=== PATIENT | male | born 1990 | race Caucasian/White ===

== ENCOUNTER 2023-08-05 13:24 | Inpatient (IN) | payer MEDICAID, SELFPAY ==
[2023-08-05] VITALS (10 sets, daily range): BP systolic 100–156; BP diastolic 56–90; PULSE 68–89; RESP 12–19; TEMP 36.5–36.8; O2SAT 95–99; BMI 26.9; BMI 26.3
[2023-08-05 13:40] LABS: MANUAL DIFF FLAG NO
--- NOTE | 2023-08-05 13:41 | PC.NURSE ---
jeremi from [facility] s/p lab draw at 0700 this morning w/ critical lab value - sodium of 116. pt is asymptomatic. has no acute complaints. denies cramps/feeling nauseous. pt changed over into hospital attire. a&ox4. vss and up to date. nsr on the quality assurance monitor. 20gIV placed in the left forearm - labs obtained/sent to lab. no sob/wob noted. respirations even/unlabored. plan of care ongoing. call parkinson placed within reach.
--- NOTE | 2023-08-05 13:48 | ED.RECABL ---
HPI - Recheck/Abnormal Lab/Rx General Chief Complaint: Recheck/Abnormal Lab/Rx Stated Complaint: high sodium Time Seen by Provider: 08/05/23 13:30 Source: patient and old records reviewed Mode of arrival: ambulatory Limitations: other (poor historian) History of Present Illness ED Provider: JUSTUS OCONNELL narrative: 32 yo male with PMH of substance abuse, hyponatremia, TBI, psychosis, hypothyroidism, on fluid restriction 1500mL / day, chronic leg edema on 20mg lasix daily but also on sodium chloride tablets 1Gm TID here with c/o routine labs at [facility] found to have Na 116 - he denies any complaints denies GI losses. He is drinking about 120 ounces of water a day despite fluid restriction. MD complaint: abnormal lab Initial visit (ago): day(s) (1) Initial visit for: other Returns today for: called because of abnormal lab/test Description of abnormal result: Na 116 Symptoms since prior visit: no new symptoms Associated symptoms: none Related Data Home Medications ?Medication ?Instructions ?Recorded ?Confirmed acetaminophen 650 mg 650 mg PO Q6H PRN Elevated Temp 08/05/23 08/05/23 tablet,extended release benztropine 0.5 mg tablet 0.5 mg PO DAILY 08/05/23 08/05/23 bisoprolol fumarate 5 mg tablet 5 mg PO BID 08/05/23 08/05/23 buprenorphine 2 mg-naloxone 0.5 mg 1 film sublingual BID 08/05/23 08/05/23 sublingual film (Suboxone) chlorpromazine 100 mg tablet 100 mg PO DAILY@0808/05/23 08/05/23 chlorpromazine 200 mg tablet 200 mg PO DAILY@1400 08/05/23 08/05/23 chlorpromazine 200 mg tablet 200 mg PO DAILY@199908/05/23 08/05/23 chlorpromazine 25 mg tablet 25 mg PO DAILY@0808/05/23 08/05/23 chlorpromazine 50 mg tablet 50 mg PO DAILY@0808/05/23 08/05/23 clonazepam 0.5 mg tablet 0.5 mg PO BID 08/05/23 08/05/23 divalproex 250 mg tablet,extended 250 mg PO DAILY 08/05/23 08/05/23 release 24 hr (Depakote ER) divalproex 250 mg tablet,extended 500 mg PO BEDTIME 08/05/23 08/05/23 release 24 hr (Depakote ER) docusate sodium 100 mg capsule 100 mg PO BID 08/05/23 08/05/23 (Colace) famotidine 20 mg tablet 20 mg PO BID 08/05/23 08/05/23 folic acid 1 mg tablet 1 mg PO DAILY 08/05/23 08/05/23 furosemide 20 mg tablet 20 mg PO DAILY 08/05/23 08/05/23 levothyroxine 50 mcg tablet 50 mcg PO DAILY 08/05/23 08/05/23 (Synthroid) lorazepam 2 mg/mL oral concentrate 1 mg PO Q5M PRN Seizures 08/05/23 08/05/23 (Lorazepam Intensol) multivitamin 1 tab PO DAILY 08/05/23 08/05/23 naloxone 0.4 mg/mL injection 0.4 mg subcut Q3M PRN Suspected OD 08/05/23 08/05/23 solution sennosides 8.6 mg tablet (senna) 8.6 mg PO DAILY PRN Constipation 08/05/23 08/05/23 sodium chloride 1,000 mg soluble 3,000 mg PO DAILY 08/05/23 08/05/23 tablet sodium phosphates 19 gram-7 118 ml [place] DAILY PRN If Bisacodyl 08/05/23 08/05/23 gram/118 mL enema not effective thiamine HCl (vitamin B1) 100 mg 100 mg PO DAILY 08/05/23 08/05/23 tablet Allergies Allergy/AdvReac Type Severity Reaction Status Date / Time No Known Allergies Allergy Verified 08/05/23 13:30 [No Known Allergies*] Review of Systems Review of Systems: Constitutional : No Fever, No Chills, No Fatigue ENT/Mouth : No sore throat, No Rhinorrhea Eyes: No Eye Pain, No Swelling, No Redness Cardiovascular : No Chest Pain, No SOB, No Dyspnea on Exertion Respiratory : No Cough, No Sputum Gastrointestinal : No Nausea, No Vomiting, No Diarrhea, No abdominal Pain Genitourinary : No Dysuria, No Urinary Frequency, No Hematuria, Musculoskeletal : No joint pain, No Myalgias, No Joint Swelling Skin : No Skin Lesions, No rash Neuro : No Weakness, No Numbness, No Dizziness, no Headache Psych : No Anxiety/Panic, No Depression All other systems reviewed and are negative [facility] Past Medical History Attestation statement: The following information was validated with the patient. Source: old records reviewed Medical History (Updated 08/05/23 @ 15:39 by Kaitlin Malave) Hypothyroidism Hyponatremia Opiate use Psychosis Impulse disorder TBI (traumatic brain injury) Social History Social History (Updated 08/05/23 @ 14:31 by Kathie Lyman DO) Patient Tobacco Use Status: Tobacco use Unknown Physical Exam Vital Signs: Vital Signs: Last Vital Signs Temp 97.7 F 08/05/23 15:11 Pulse 71 08/05/23 15:11 Resp 14 08/05/23 15:11 BP 127/82 08/05/23 15:11 Pulse Ox 98 08/05/23 15:11 O2 Del Method Room Air 08/05/23 15:11 BMI result Body Mass Index 26.9 Appearance: Alert. Oriented X3. No acute distress. Eyes: Pupils equal, round and reactive to light. ENT: Pharynx normal. Neck: Normal inspection. Neck supple. CVS: Normal heart rate and rhythm. Pulses normal. Respiratory: No respiratory distress. Breath sounds normal. Abdomen: Soft and nontender. Skin: Skin warm and dry. Normal skin color. Normal skin turgor. Extremities: trace pitting edema of both ankles Neuro: Oriented X 3. No motor deficit. No sensory deficit. Medications Administered Discontinued Medications Generic Name Dose Route Start Last Admin Trade Name Freq PRN Reason Stop Dose Admin Sodium Chloride 4 gm 08/05/23 14:27 08/05/23 15:25 Sodium Chloride Tab 1 Gm Tablet PO 08/05/23 14:28 4 gm ONCE ONE Administration Medical Decision Making Medical Decision Making [facility] Narrative: 32 yo male with PMH of substance abuse, hyponatremia, TBI, psychosis, hypothyroidism, on fluid restriction 1500mL / day, chronic leg edema on 20mg lasix daily who has been consuming 120 ounces of water a day presents with c/o Na 116 this AM now 113 at this time urine, lytes, ICU consult ordered. Planned admit. He is at his baseline no seizures reported. Differential Diagnosis Differential Diagnoses: The differential diagnosis associated with the presentation includes SIADH, psychogenic polydipsia, sequela of hyponatremia Admission/Observation Consideration of admission/observation: Escalation of care including admission/observation considered admit to ICU Consult Healthcare Provider Management of the patient was discussed with: Mems Integration Engineer (Dr. Escalona will accept admission - 4 tabs of sodium, regular diet, hold off hypertonic infusion at this time) Dr. Collazo recommended hypertonic saline but Dr. escalona who is assuming care provided different recommendations to follow Lab Data MDM Lab Attestation statement: I reviewed the patient's lab results. 08/05/23 13:36 08/05/23 13:36 Labs: Lab Results 08/05/23 08/05/23 08/05/23 Range/Units 13:36 13:55 13:56 WBC 4.0 L (4.8-10.8) X10*3/uL RBC 3.85 L (4.60-5.80) X10*6/uL Hgb 11.0 L (14.0-18.0) g/dl Hct 29.5 L (42.0-52.0) % MCV 76.6 L (80.0-98.0) fL MCH 28.6 (27.0-33.0) pg MCHC 37.3 H (31.0-36.0) g/dl RDW 12.0 (11.0-16.0) % Plt Count 220 (160-400) X10*3/uL MPV 9.1 L (9.4-12.4) fL Immature Gran % (Auto) 1.3 H (0.0-0.4) % Neut % (Auto) 45.4 (45-73) % Lymph % (Auto) 36.0 (20-40) % [place] % (Auto) 13.3 H (2-11) % Eos % (Auto) 4.0 (0-4) % Baso % (Auto) 0.0 (0-2) % Lymph # (Auto) 0.3 L (1.2-4.9) X10*3/uL [place] # (Auto) 0.1 (0.1-1.2) X10*3/uL Eos # (Auto) 0.0 (0.0-0.4) X10*3/uL Baso # (Auto) 0.0 (0.0-0.2) X10*3/uL Abs Immat Gran (auto) 0.01 (0.00-0.03) X10*3/uL Absolute Neuts (auto) 0.3 L (2.0-8.3) x10*3/uL Absolute Nucleated RBC 0.000 (0.0-0.012) X10*3/uL Nucleated RBC % (auto) 0.0 (0.0-0.2) /100WBC Sodium 113 L* (135-145) mmol/L Potassium 4.2 (3.3-5.1) mmol/L Chloride 85 L (96-108) mmol/L Carbon Dioxide 20 L (22-29) mmol/L Anion Gap 12 (12-20) BUN 6 L (9-16) mg/dL Creatinine 0.57 (0.5-1.4) mg/dL Estim Creat Clear Calc 188.5 Estimated GFR > 60 Random Glucose 124 H (60-115) mg/dL Osmolality 234 L (281-305) mosm/kg Calcium 8.2 L (8.4-10.2) mg/dL Magnesium 1.7 (1.6-2.6) mg/dL Total Bilirubin 0.3 (0.0-1.0) mg/dL AST 14 (5-37) U/L ALT 10 (0-40) U/L Alkaline Phosphatase 81 (39-117) U/L Total Protein 6.3 L (6.5-8.0) g/dL Albumin 3.9 (3.5-5.0) g/dL TSH 1.73 (0.32-4.0) uIU/mL Urine Color Yellow Urine Appearance Clear Urine pH 6.5 (5.0-9.0) Ur Specific [place] 1.010 (1.005-1.025) Urine Protein Negative (Neg-Trace) mg/dL Urine Glucose (UA) Negative (Negative) mg/dL Urine Ketones Negative (Negative) mg/dL Urine Blood Negative (Negative) Urine Nitrite Negative (Negative) Ur Leukocyte Esterase Negative (Negative) Ur Random Sodium 21.0 mmol/L Urine Creatinine 48.40 mg/dL Valproic Acid 18.8 L (50.0-100.0) mcg/mL Independent Historian Clinical information obtained from an independent historian. History obtained from or confirmed by: EMS External Record Review External record reviewed: Outpatient record and Prior outpatient labs Critical Care Time Critical Care Time Critical Care Time: Yes Total Critical Care Time: 40 Attestation: consult, review of records, admission to ICU I attest to this time spent taking care of the patient Discharge Plan Discharge Clinical Impression: Hyponatremia Patient Disposition: Admitted As Inpatient Interventions: Admission Worksheet (ED) Last Done: 08/05/23 15:37 Discharge Date/Time: 08/05/23 15:39
[2023-08-05 13:59] LABS: Alanine Aminotransferase 10 U/L (0-40); Albumin Level 3.9 g/dL (3.5-5.0); Alkaline Phosphatase 81 U/L (39-117); Anion Gap 12 (12-20); Aspartate Amino Transferase 14 U/L (5-37); Bilirubin Total 0.3 mg/dL (0.0-1.0); Blood Urea Nitrogen 6 mg/dL (9-16); Calcium 8.2 mg/dL (8.4-10.2); Carbon Dioxide 20 mmol/L (22-29); Chloride 85 mmol/L (96-108); Creatinine Clr Calc Pharmacy 188.5; Estimated Glomerular Filt Rate > 60; Glucose Random 124 mg/dL (60-115); Magnesium 1.7 mg/dL (1.6-2.6); Potassium 4.2 mmol/L (3.3-5.1); Sodium 113 mmol/L (135-145); Total Protein 6.3 g/dL (6.5-8.0)
[2023-08-05 14:03] LABS: Appearance Urine Clear; Color Urine Yellow; Glucose Urine UA Negative (Negative); Leukocyte Esterase Urine Negative (Negative); Nitrite Urine Negative (Negative); PH 6.5 (5.0-9.0); Urine Blood Negative (Negative); Urine Ketones Negative (Negative); Urine Protein Negative (Neg-Trace)
[2023-08-05 14:13] LABS: Valproate 18.8 mcg/mL (50.0-100.0)
[2023-08-05 14:27] LABS: Osmolality, Serum 234 mosm/kg (281-305)
--- NOTE | 2023-08-05 14:33 | P.HPCC_ITS ---
History of Present Illness Date of Service: 08/05/23 Chief Complaint: Subacute hyponatremia 32-year-old gentleman with underlying history of substance abuse, hyponatremia supposed to be on sodium tabs, TBI, psychosis, hypothyroidism, on daily fluid restriction of 1.5 L, chronic leg edema on 20 mg a day of Lasix sent from [facility] for hyponatremia. On ER initial sodium level of 113. Patient with no neurologic symptoms, admitting to drinking paroxysmally 100-120 oz of fluids daily over the last 5 days. Review of Systems 2 Constitutional: Constitutional: Denies daytime sleepiness, Denies excessive sweating, Denies fatigue, Denies fever(s), Denies lethargy, Denies malaise, Denies night sweats, Denies snoring and Denies weight loss Eyes: Eyes: Denies blurry vision and Denies itchy eyes ENT: Denies nasal congestion, Denies post nasal drip, Denies sinus pain, Denies sinus pressure and Denies other ( Thrush) Cardiovascular: Cardiovascular: Denies chest pain, Denies pedal edema, Denies dyspnea, Denies orthopnea and Denies paroxysmal nocturnal dyspnea Respiratory: Respiratory: Denies cough, Denies hemoptysis, Denies excessive phlegm production, Denies dyspnea, Denies snoring and Denies wheezing Gastrointestinal: Gastrointestinal: Denies abdominal pain and Denies heartburn Musculoskeletal: Musculoskeletal: Denies myalgias, Denies arthralgias and Denies joint swelling Integumentary/Breasts: Skin/Breast: Denies rash Neurologic: Denies memory loss and Denies seizure-like activity Psychiatric: Psychiatric: Denies abnormal sleep pattern, Denies anxiety and Denies memory loss Endocrine: Endocrine: Denies excessive sweating, Denies fatigue and Denies heat intolerance Hematologic/Lymphatic: Hematologic/Lymphatic: Denies easy bruising Allergic/Immunologic: Allergic/Immunologic: Denies itchy eyes, Denies seasonal rhinorrhea and Denies wheezing PMFSH Past Medical History Medical History (Updated 08/05/23 @ 14:35 by Stan Escalona MD) Hypothyroidism Hyponatremia Opiate use Psychosis Impulse disorder TBI (traumatic brain injury) Social History Social History (Updated 08/05/23 @ 14:31 by Kathie Lyman DO) Patient Tobacco Use Status: Tobacco use Unknown Advance Directives: No Advance Directives Information Provided: Yes Do you have a plan to hurt others: No Plan Meds Allergies Allergy/AdvReac Type Severity Reaction Status Date / Time No Known Allergies Allergy Verified 08/05/23 13:30 [No Known Allergies*] Active Medications: Current Medications Heparin Sodium (Porcine) (Heparin Sodium,Porcine 5,000 Unit/Ml Vial) 5,000 unit SUBCUT Q8H [facility] Sodium Chloride (Sodium Chloride Tab 1 Gm Tablet) 2 gm PO TID [facility] Physical Exam 2 Vital Signs: Vital Signs: Last Vital Signs Temp 98.2 F 08/05/23 13:29 Pulse 75 08/05/23 13:29 Resp 16 08/05/23 13:29 BP 116/75 08/05/23 13:29 Pulse Ox 97 08/05/23 13:29 O2 Del Method Room Air 08/05/23 13:29 BMI result Body Mass Index 26.9 Const: General: no acute distress and alert Nutritional Appearance: not obese Orientation/consciousness: Other orientation findings ( oriented) HEENT: Head: Yes atraumatic Eyes: General: appearance normal, both eyes and all related structures S clerae: sclerae normal EOM: EOMs intact bilaterally Neck: Neck: Yes supple Lymphatic: no lymphadenopathy noted Resp: Effort & Inspection: normal respiratory effort and no use of accessory muscles Auscultation: clear to auscultation bilaterally Cardio: Rate: regular rate Rhythm: regular rhythm Heart sounds: no gallops, no murmurs and no rubs Skin: General skin exam: other ( warm) Extrem: General: No clubbing, No cyanosis and No edema Results Labs 08/05/23 13:36 08/05/23 13:36 Labs: Laboratory Results - last 24 hr 08/05/23 08/05/23 08/05/23 13:36 13:55 13:56 Anion Gap 12 Estim Creat Clear Calc 188.5 Estimated GFR > 60 Random Glucose 124 H Osmolality 234 L Calcium 8.2 L Magnesium 1.7 Total Bilirubin 0.3 AST 14 ALT 10 Alkaline Phosphatase 81 Total Protein 6.3 L Albumin 3.9 Urine Color Yellow Urine Appearance Clear Urine pH 6.5 Ur Specific [place] 1.010 Urine Protein Negative Urine Glucose (UA) Negative Urine Ketones Negative Urine Blood Negative Urine Nitrite Negative Ur Leukocyte Esterase Negative Ur Random Sodium 21.0 Urine Creatinine 48.40 Valproic Acid 18.8 L Assessment and Plan (1) Psychosis: Status: Acute (2) TBI (traumatic brain injury): Status: Acute (3) Hypothyroidism: Status: Acute (4) Hyponatremia: Status: Acute Plan Assessment: 32-year-old gentleman with underlying TBI, psychosis, hypothyroidism, substance abuse, chronic hyponatremia now admitted with subacute on chronic hyponatremia with initial sodium level of 113. Plan: Neuro: No acute issues. Cardiac: No acute issues. Pulmonary: No acute issues. 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 Restart on sodium tabs. Nephrology service care appreciated. Monitor sodium level, urine output, and renal indices. Endo: No acute issues. Underlying hypothyroidism. GI: No acute issues. ID: No acute issues Heme/Onc: No acute issues. Psych: No acute issues. Underlying history of TB/psychosis. Miscellaneous: No acute issues. Prophylaxis: Heparin Diet: Regular
--- NOTE | 2023-08-05 14:38 | PC.NURSE ---
pharmacy called d/t medication not being available in pyxis. will administer when able.
[2023-08-05 14:55] LABS: Imm Gran Abs Auto 0.01 X10*3/uL (0.00-0.03); Imm Gran Pct Auto 1.3 % (0.0-0.4); Lymphocytes Absolute Auto 0.3 X10*3/uL (1.2-4.9); Mean Corpuscular HGB Conc 37.3 g/dl (31.0-36.0); Mean Corpuscular Hemoglobin 28.6 pg (27.0-33.0); Mean Corpuscular Volume 76.6 fL (80.0-98.0); Mean Platelet Volume 9.1 fL (9.4-12.4); Monocytes Absolute Auto 0.1 X10*3/uL (0.1-1.2); Monocytes Percent Auto 13.3 % (2-11); Neutrophils Absolute Auto 0.3 x10*3/uL (2.0-8.3); Neutrophils Percent Auto 45.4 % (45-73); SCAN SMEAR FLAG 1
[2023-08-05 14:56] LABS: Hematocrit 29.5 % (42.0-52.0); Platelet Count 220 X10*3/uL (160-400); Red Blood Count 3.85 X10*6/uL (4.60-5.80); TSH reflex Free T4 1.73 uIU/mL (0.32-4.0)
[2023-08-05] MEDS: Sodium Chloride Tab 1 GM TABLET 4 GM PO (15:25)
--- NOTE | 2023-08-05 15:27 | PC.NURSE ---
medication delivered from pharmacy/administered at this time. pt's vs remain stable. nsr on the hospital monitor. pt has no complaints. report given to MARY KAY De León in the ICU at this time. plan of care ongoing. call parkinson placed within reach.
--- NOTE | 2023-08-05 15:30 | PHA.MEDREC ---
Pharmacy Consult ? Medication Reconciliation Pharmacy has completed the medication reconciliation. Confirmed medications with list provided from [facility].
--- NOTE | 2023-08-05 15:35 | PC.NURSE ---
pt being transported to ICU w/ Juan MUÑIZ, as well as MARY KAY Thapa at this time.
[2023-08-05] MEDS: Heparin Sodium,Porcine 5,000 UNIT/ML VIAL 5000 UNIT SUBCUT ×2 (15:43→23:05)
[2023-08-05 18:51] LABS: Anion Gap 10 (12-20); Blood Urea Nitrogen 7 mg/dL (9-16); Calcium 8.6 mg/dL (8.4-10.2); Carbon Dioxide 24 mmol/L (22-29); Chloride 88 mmol/L (96-108); Creatinine Clr Calc Pharmacy 179.1; Estimated Glomerular Filt Rate > 60; Glucose Random 136 mg/dL (60-115); Potassium 4.2 mmol/L (3.3-5.1); Sodium 118 mmol/L (135-145)
[2023-08-05] MEDS: Sodium Chloride Tab 1 GM TABLET 2 GM PO (19:42)
[2023-08-06] VITALS (13 sets, daily range): BP systolic 96–133; BP diastolic 47–89; PULSE 69–89; RESP 12–20; TEMP 36.1–37.2; O2SAT 95–98; BMI 26.3
[2023-08-06 05:05] LABS: MANUAL DIFF FLAG NO
[2023-08-06 05:07] LABS: Basophils Percent Auto 0.3 % (0-2); Eosinophils Absolute Auto 0.1 X10*3/uL (0.0-0.4); Eosinophils Percent Auto 3.2 % (0-4); Hematocrit 33.2 % (42.0-52.0); Hemoglobin 12.4 g/dl (14.0-18.0); Imm Gran Abs Auto 0.01 X10*3/uL (0.00-0.03); Imm Gran Pct Auto 0.3 % (0.0-0.4); Lymphocytes Absolute Auto 1.4 X10*3/uL (1.2-4.9); Mean Corpuscular HGB Conc 37.3 g/dl (31.0-36.0); Mean Corpuscular Hemoglobin 29.1 pg (27.0-33.0); Mean Corpuscular Volume 77.9 fL (80.0-98.0); Mean Platelet Volume 8.6 fL (9.4-12.4); Monocytes Absolute Auto 0.5 X10*3/uL (0.1-1.2); Monocytes Percent Auto 15.1 % (2-11); Neutrophils Absolute Auto 1.1 x10*3/uL (2.0-8.3); Neutrophils Percent Auto 36.1 % (45-73); Platelet Count 212 X10*3/uL (160-400); Red Blood Count 4.26 X10*6/uL (4.60-5.80); White Blood Count 3.1 X10*3/uL (4.8-10.8)
[2023-08-06 05:24] LABS: Alanine Aminotransferase 11 U/L (0-40); Albumin Level 3.8 g/dL (3.5-5.0); Alkaline Phosphatase 78 U/L (39-117); Anion Gap 12 (12-20); Aspartate Amino Transferase 11 U/L (5-37); Bilirubin Total 0.2 mg/dL (0.0-1.0); Blood Urea Nitrogen 6 mg/dL (9-16); Calcium 9.1 mg/dL (8.4-10.2); Carbon Dioxide 23 mmol/L (22-29); Chloride 90 mmol/L (96-108); Creatinine Clr Calc Pharmacy 185.2; Estimated Glomerular Filt Rate > 60; Glucose Random 96 mg/dL (60-115); Magnesium 1.9 mg/dL (1.6-2.6); Phosphorus 4.9 mg/dL (2.7-4.5); Potassium 4.4 mmol/L (3.3-5.1); Sodium 121 mmol/L (135-145)
[2023-08-06] MEDS: Heparin Sodium,Porcine 5,000 UNIT/ML VIAL 5000 UNIT SUBCUT ×2 (08:55→14:02)
[2023-08-06] MEDS: Sodium Chloride Tab 1 GM TABLET 2 GM PO ×2 (08:56→14:01)
--- NOTE | 2023-08-06 09:20 | PM.CCPN ---
Subjective Subjective Date of Service: 08/06/23 Interval History: 32-year-old gentleman with underlying history of substance abuse, hyponatremia supposed to be on sodium tabs, TBI, psychosis, hypothyroidism, on daily fluid restriction of 1.5 L, chronic leg edema on 20 mg a day of Lasix sent from [facility] for hyponatremia. On ER initial sodium level of 113. Patient with no neurologic symptoms, admitting to drinking paroxysmally 100-120 oz of fluids daily over the last 5 days. Overnight. Sodium level is improving. Critical Care Time (minutes): 0 Physical Exam Vital Signs: Vital Signs: Last Vital Signs Temp 98.2 F 08/06/23 08:00 Pulse 87 08/06/23 08:00 Resp 15 08/06/23 08:00 BP 117/68 08/06/23 08:00 Pulse Ox 95 08/06/23 08:00 O2 Del Method Room Air 08/06/23 08:00 BMI result Body Mass Index 26.3 Const: General: no acute distress, alert and awake Eyes: Sclerae: sclerae normal EOM: EOMs intact bilaterally Neck: Neck: Yes no lymphadenopathy, Yes trachea midline and Yes supple Resp: Effort & Inspection: normal respiratory effort and no respiratory distress Auscultation: clear to auscultation bilaterally Cardio: Rate: regular rate Rhythm: regular rhythm Heart sounds: no gallops, no murmurs and no rubs GI: Palpation (GI): Soft to palpation and Other GI palpation findings present ( Nontender) Auscultation: normal bowel sounds Extrem: General: Yes no pedal edema, No clubbing and No cyanosis Objective Data Labs 08/06/23 04:53 08/06/23 04:53 Labs: Laboratory Results - last 24 hr 08/05/23 08/05/23 08/05/23 13:36 13:55 13:56 WBC 4.0 L RBC 3.85 L Hgb 11.0 L Hct 29.5 L MCV 76.6 L MCH 28.6 MCHC 37.3 H RDW 12.0 Plt Count 220 MPV 9.1 L Immature Gran % (Auto) 1.3 H Neut % (Auto) 45.4 Lymph % (Auto) 36.0 [place] % (Auto) 13.3 H Eos % (Auto) 4.0 Baso % (Auto) 0.0 Lymph # (Auto) 0.3 L [place] # (Auto) 0.1 Eos # (Auto) 0.0 Baso # (Auto) 0.0 Abs Immat Gran (auto) 0.01 Absolute Neuts (auto) 0.3 L Absolute Nucleated RBC 0.000 Nucleated RBC % (auto) 0.0 Sodium 113 L* Potassium 4.2 Chloride 85 L Carbon Dioxide 20 L Anion Gap 12 BUN 6 L Creatinine 0.57 Estim Creat Clear Calc 188.5 Estimated GFR > 60 Random Glucose 124 H Osmolality 234 L Calcium 8.2 L Phosphorus Magnesium 1.7 Total Bilirubin 0.3 AST 14 ALT 10 Alkaline Phosphatase 81 Total Protein 6.3 L Albumin 3.9 TSH 1.73 Urine Color Yellow Urine Appearance Clear Urine pH 6.5 Ur Specific [place] 1.010 Urine Protein Negative Urine Glucose (UA) Negative Urine Ketones Negative Urine Blood Negative Urine Nitrite Negative Ur Leukocyte Esterase Negative Ur Random Sodium 21.0 Urine Creatinine 48.40 Valproic Acid 18.8 L 08/05/23 08/06/23 18:04 04:53 WBC 3.1 L RBC 4.26 L Hgb 12.4 L Hct 33.2 L MCV 77.9 L MCH 29.1 MCHC 37.3 H RDW 12.0 Plt Count 212 MPV 8.6 L Immature Gran % (Auto) 0.3 Neut % (Auto) 36.1 L Lymph % (Auto) 45.0 H [place] % (Auto) 15.1 H Eos % (Auto) 3.2 Baso % (Auto) 0.3 Lymph # (Auto) 1.4 [place] # (Auto) 0.5 Eos # (Auto) 0.1 Baso # (Auto) 0.0 Abs Immat Gran (auto) 0.01 Absolute Neuts (auto) 1.1 L Absolute Nucleated RBC 0.000 Nucleated RBC % (auto) 0.0 Sodium 118 L* 121 L Potassium 4.2 4.4 Chloride 88 L 90 L Carbon Dioxide 24 23 Anion Gap 10 L 12 BUN 7 L 6 L Creatinine 0.60 0.58 Estim Creat Clear Calc 179.1 185.2 Estimated GFR > 60 > 60 Random Glucose 136 H 96 Osmolality Calcium 8.6 9.1 Phosphorus 4.9 H Magnesium 1.9 Total Bilirubin 0.2 AST 11 ALT 11 Alkaline Phosphatase 78 Total Protein 6.0 L Albumin 3.8 TSH Urine Color Urine Appearance Urine pH Ur Specific [place] Urine Protein Urine Glucose (UA) Urine Ketones Urine Blood Urine Nitrite Ur Leukocyte Esterase Ur Random Sodium Urine Creatinine Valproic Acid Progress Note: A&P Assessment and plan (1) Psychosis: Status: Acute (2) TBI (traumatic brain injury): Status: Acute (3) Hypothyroidism: Status: Acute (4) Hyponatremia: Status: Acute Plan Assessment: 32-year-old gentleman with underlying TBI, psychosis, hypothyroidism, substance abuse, chronic hyponatremia now admitted with subacute on chronic hyponatremia with initial sodium level of 113. Plan: Neuro: No acute issues. Cardiac: No acute issues. Pulmonary: No acute issues. 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 Continue on sodium tabs. Nephrology service care appreciated. Monitor sodium level, urine output, and renal indices. Endo: No acute issues. Underlying hypothyroidism. GI: No acute issues. ID: No acute issues Heme/Onc: No acute issues. Psych: No acute issues. Underlying history of TB/psychosis. Miscellaneous: No acute issues. Prophylaxis: Heparin Diet: Regular Quality Stroke Does the patient have a stroke diagnosis?: No VTE Prior VTE?: No VTE Risk Level:: Medical - moderate - high VTE Device Contraindication: Treatment Not Indicated VTE Drug Contraindication: N/A - Med Ordered
[2023-08-06] MEDS: Buprenorphine/Naloxone 2/0.5mg FILM 1 FILM SUBLINGUAL ×2 (12:26→20:59)
[2023-08-06] MEDS: Folic Acid 1 MG TABLET PO (12:26)
[2023-08-06] MEDS: Famotidine 20 MG TABLET PO ×2 (12:26→19:23)
[2023-08-06] MEDS: Docusate Sodium 100 MG CAPSULE PO ×2 (12:26→19:23)
[2023-08-06] MEDS: Levothyroxine Sodium 50 MCG TABLET PO (12:26)
[2023-08-06] MEDS: Multivitamin TABLET 1 TAB PO (12:26)
[2023-08-06] MEDS: Thiamine HCL 100 MG TABLET PO (13:18)
[2023-08-06] MEDS: Bisoprolol Fumarate 5 MG TABLET PO ×2 (13:18→19:23)
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
[2023-08-06 14:32] LABS: Anion Gap 15 (12-20); Blood Urea Nitrogen 6 mg/dL (9-16); Calcium 9.6 mg/dL (8.4-10.2); Carbon Dioxide 23 mmol/L (22-29); Chloride 91 mmol/L (96-108); Creatinine Clr Calc Pharmacy 167.9; Estimated Glomerular Filt Rate > 60; Glucose Random 105 mg/dL (60-115); Potassium 4.8 mmol/L (3.3-5.1); Sodium 124 mmol/L (135-145)
--- NOTE | 2023-08-06 15:06 | PC.NURSE ---
Pt transefered from ICU @ 10:00. Pt refused his first doses of his psych meds. Thorazine and cogentin. MD Lyn aware. MARY KAY Polanco is taking over care of this patient.
--- NOTE | 2023-08-06 15:20 | PM.CNNEP ---
History of Present Illness Reason for Consult Consult date: 08/06/23 Chief Complaint Chief complaint: hyponatremia History of Present Illness Narrative: 32-year-old man with underlying history of substance abuse, hyponatremia supposed to be on sodium tabs, TBI, psychosis, hypothyroidism, on daily fluid restriction of 1.5 L, chronic leg edema on 20 mg a day of Lasix sent [facility] for hyponatremia. In ER initial sodium level of 113. Initailly admitted to ICU NOw transferred to [facility] in 124 as of this noon He admits to drinking lots of water due to the hot weather Review of Systems Constitutional: Denies fever(s) and Denies weight loss Cardiovascular: Denies chest pain Respiratory: Denies cough and Denies hemoptysis Gastrointestinal: Denies abdominal pain, Denies diarrhea and Denies nausea Musculoskeletal: Denies back pain Denies focal weakness [facility] Past Medical History Medical History (Updated 08/05/23 @ 15:39 by Kaitlin Malave) Hypothyroidism Hyponatremia Opiate use Psychosis Impulse disorder TBI (traumatic brain injury) Social History Social History (Updated 08/05/23 @ 14:31 by Kathie Lyman DO) Housing: Correction Do you presently have visiting nurse or other home services: No Patient Tobacco Use Status: Former Tobacco user service: No Meds Allergies Allergy/AdvReac Type Severity Reaction Status Date / Time No Known Allergies Allergy Verified 08/05/23 13:30 [No Known Allergies*] Active Medications: Current Medications Benztropine Mesylate (Benztropine Mesylate 0.5 Mg Tablet) 0.5 mg PO DAILY [facility] Last Admin: 08/06/23 12:28 Dose: Not Given Bisoprolol Fumarate (Bisoprolol Fumarate 5 Mg Tablet) 5 mg PO BID [facility] Last Admin: 08/06/23 13:18 Dose: 5 mg Buprenorphine/Naloxone (Buprenorphine/Naloxone 2/0.5mg Film) 1 film SUBLINGUAL BID [facility] Last Admin: 08/06/23 12:26 Dose: 1 film Chlorpromazine HCl (Chlorpromazine Hcl 25 Mg Tablet) 25 mg PO DAILY@0800 [facility] Chlorpromazine HCl (Chlorpromazine Hcl 25 Mg Tablet) 50 mg PO DAILY@0800 [facility] Chlorpromazine HCl (Chlorpromazine Hcl 100 Mg Tablet) 100 mg PO DAILY@0800 [facility] Chlorpromazine HCl (Chlorpromazine Hcl 100 Mg Tablet) 200 mg PO DAILY@1400 [facility] Last Admin: 08/06/23 12:29 Dose: Not Given Chlorpromazine HCl (Chlorpromazine Hcl 100 Mg Tablet) 200 mg PO DAILY@2000 [facility] Diazepam (Diazepam 10 Mg/2 Ml Cartridge) 5 mg IM Q5MX3 PRN PRN Reason: Seizures Docusate Sodium (Docusate Sodium 100 Mg Capsule) 100 mg PO BID [facility] Last Admin: 08/06/23 12:26 Dose: 100 mg Famotidine (Famotidine 20 Mg Tablet) 20 mg PO BID [facility] Last Admin: 08/06/23 12:26 Dose: 20 mg Folic Acid (Folic Acid 1 Mg Tablet) 1 mg PO DAILY [facility] Last Admin: 08/06/23 12: Dose: 1 mg Furosemide (Furosemide 20 Mg Tablet) 20 mg PO DAILY [facility]; Protocol Heparin Sodium (Porcine) (Heparin Sodium,Porcine 5,000 Unit/Ml Vial) 5,000 unit SUBCUT Q8H [facility] Last Admin: 08/06/23 14:02 Dose: 5,000 unit Levothyroxine Sodium (Levothyroxine Sodium 50 Mcg Tablet) 50 mcg PO DAILY@0600 [facility] Levothyroxine Sodium (Levothyroxine Sodium 50 Mcg Tablet) 50 mcg PO DAILY@0600 [facility] Last Admin: 08/06/23 12:26 Dose: 50 mcg Multivitamins/Vitamin C (Multivitamin Tablet) 1 tab PO DAILY [facility] Last Admin: 08/06/23 12:26 Dose: 1 tab Naloxone HCl (Naloxone Hcl 0.4 Mg/Ml Vial) 0.4 mg SUBCUT Q3M PRN PRN Reason: Suspected OD Senna (Sennosides 8.6 Mg Tablet) 8.6 mg PO DAILY PRN PRN Reason: Constipation Sodium Biphosphate/Sodium Phosphate (Sodium Phosphate,Stevens-Dibasic 133 Ml Enema) 118 ml AR DAILY PRN PRN Reason: If Bisacodyl not effective Sodium Chloride (Sodium Chloride Tab 1 Gm Tablet) 2 gm PO TID [facility] Last Admin: 08/06/23 14:01 Dose: 2 gm Thiamine HCl (Thiamine Hcl 100 Mg Tablet) 100 mg PO DAILY [facility] Last Admin: 08/06/23 13:18 Dose: 100 mg Home Medications ?Medication ?Instructions ?Recorded ?Confirmed ?Last Taken ?Type acetaminophen 650 mg 650 mg PO Q6H PRN Elevated Temp 08/05/23 08/05/23 Unknown History tablet,extended release benztropine 0.5 mg tablet 0.5 mg PO DAILY 08/05/23 08/05/23 Unknown History bisoprolol fumarate 5 mg tablet 5 mg PO BID 08/05/23 08/05/23 Unknown History buprenorphine 2 mg-naloxone 0.5 mg 1 film sublingual BID 08/05/23 08/05/23 Unknown History sublingual film (Suboxone) chlorpromazine 100 mg tablet 100 mg PO DAILY@0800 08/05/23 08/05/23 Unknown History chlorpromazine 200 mg tablet 200 mg PO DAILY@1400 08/05/23 08/05/23 Unknown History chlorpromazine 200 mg tablet 200 mg PO DAILY@199908/05/23 08/05/23 Unknown History chlorpromazine 25 mg tablet 25 mg PO DAILY@0808/05/23 08/05/23 Unknown History chlorpromazine 50 mg tablet 50 mg PO DAILY@0800 08/05/23 08/05/23 Unknown History clonazepam 0.5 mg tablet 0.5 mg PO BID 08/05/23 08/05/23 Unknown History divalproex 250 mg tablet,extended 250 mg PO DAILY 08/05/23 08/05/23 Unknown History release 24 hr (Depakote ER) divalproex 250 mg tablet,extended 500 mg PO BEDTIME 08/05/23 08/05/23 Unknown History release 24 hr (Depakote ER) docusate sodium 100 mg capsule 100 mg PO BID 08/05/23 08/05/23 Unknown History (Colace) famotidine 20 mg tablet 20 mg PO BID 08/05/23 08/05/23 Unknown History folic acid 1 mg tablet 1 mg PO DAILY 08/05/23 08/05/23 Unknown History furosemide 20 mg tablet 20 mg PO DAILY 08/05/23 08/05/23 Unknown History levothyroxine 50 mcg tablet 50 mcg PO DAILY 08/05/23 08/05/23 Unknown History (Synthroid) lorazepam 2 mg/mL oral concentrate 1 mg PO Q5M PRN Seizures 08/05/23 08/05/23 Unknown History (Lorazepam Intensol) multivitamin 1 tab PO DAILY 08/05/23 08/05/23 Unknown History naloxone 0.4 mg/mL injection 0.4 mg subcut Q3M PRN Suspected OD 08/05/23 08/05/23 Unknown History solution sennosides 8.6 mg tablet (senna) 8.6 mg PO DAILY PRN Constipation 08/05/23 08/05/23 Unknown History sodium chloride 1,000 mg soluble 3,000 mg PO DAILY 08/05/23 08/05/23 Unknown History tablet sodium phosphates 19 gram-7 118 ml AR DAILY PRN If Bisacodyl 08/05/23 08/05/23 Unknown History gram/118 mL enema not effective thiamine HCl (vitamin B1) 100 mg 100 mg PO DAILY 08/05/23 08/05/23 Unknown History tablet Physical Exam Vital Signs: Last Vital Signs Temp 97.7 F 08/06/23 09:49 Pulse 85 08/06/23 09:49 Resp 16 08/06/23 09:49 BP 133/89 08/06/23 09:49 Pulse Ox 98 08/06/23 09:49 O2 Del Method Room Air 08/06/23 09:49 BMI result Body Mass Index 26.3 Awake. Comfortable. Neck is supple. Mucosa moist. Lungs clear Heart S1-S2 heard no gallop. Abdomen soft. Extremities no edema. No involuntary movements. No myoclonus. Results Lab Results 08/06/23 04:53 08/06/23 14:07 Lab results: Chemistry 08/05/23 08/05/23 08/06/23 13:36 18:04 04:53 Sodium 113 L* 118 L* 121 L Potassium 4.2 4.2 4.4 Carbon Dioxide 20 L 24 23 BUN 6 L 7 L 6 L Creatinine 0.57 0.60 0.58 Calcium 8.2 L 8.6 9.1 Phosphorus 4.9 H 08/06/23 14:07 Sodium 124 L Potassium 4.8 Carbon Dioxide 23 BUN 6 L Creatinine 0.64 Calcium 9.6 Phosphorus Hematology 08/05/23 08/06/23 13:36 04:53 WBC 4.0 L 3.1 L Hgb 11.0 L 12.4 L Plt Count 220 212 Urinalysis 08/05/23 13:56 Urine Color Yellow Urine Appearance Clear Urine pH 6.5 Ur Specific [place] 1.010 Urine Protein Negative Urine Glucose (UA) Negative Urine Ketones Negative Urine Blood Negative Urine Nitrite Negative Ur Leukocyte Esterase Negative Urine Studies 08/05/23 13:56 Urine Creatinine 48.40 Assessment and Plan (1) Hyponatremia: Status: Acute Plan Hyponatremia Hypotonia Primarily due to excessive free water intake He was on Depakote, which could also contribute TSH normal Watch rate of correction 113 to 124 in 24 hrs STOP NaCL tabs 2 gms BID STOP LAsix 20 mg QD- Lasix can increase free water clearance and correct hyponatremia quickly Recheck pNa in 4 hours ( 6 PM); If pNa is > 126, Add D5W at 60 cc/hr x 1L to avoid rapid correction Follow pNa q 4 hrs today Procedures Date of Service Date of Service: 08/06/23
--- NOTE | 2023-08-06 17:15 | PC.NURSE ---
Per Pt has transport upon discharge from parent, will pass along to case management.
--- NOTE | 2023-08-06 19:05 | PM.EVENT ---
Event Note Date of Service: 08/06/23 Time Spent With Patient Time: Total time managing care of this patient today ____ minutes.
[2023-08-07 02:53] VITALS: BP 113/58; PULSE 75; RESP 20; TEMP 36.3; O2SAT 99
[2023-08-07] MEDS: Levothyroxine Sodium 50 MCG TABLET PO (05:49)
[2023-08-07] MEDS: Heparin Sodium,Porcine 5,000 UNIT/ML VIAL 5000 UNIT SUBCUT (05:49)
[2023-08-07 07:17] VITALS: BP 138/71; PULSE 78; RESP 16; TEMP 36; O2SAT 97
[2023-08-07 07:21] LABS: Anion Gap 13 (12-20); Blood Urea Nitrogen 6 mg/dL (9-16); Calcium 9.6 mg/dL (8.4-10.2); Carbon Dioxide 23 mmol/L (22-29); Chloride 93 mmol/L (96-108); Creatinine Clr Calc Pharmacy 179.1; Estimated Glomerular Filt Rate > 60; Glucose Random 92 mg/dL (60-115); Phosphorus 5.4 mg/dL (2.7-4.5); Potassium 4.4 mmol/L (3.3-5.1); Sodium 125 mmol/L (135-145)
[2023-08-07] MEDS: Folic Acid 1 MG TABLET PO (08:44)
[2023-08-07] MEDS: Multivitamin TABLET 1 TAB PO (08:45)
[2023-08-07] MEDS: Docusate Sodium 100 MG CAPSULE PO (08:45)
[2023-08-07] MEDS: Thiamine HCL 100 MG TABLET PO (08:45)
[2023-08-07] MEDS: Bisoprolol Fumarate 5 MG TABLET PO (08:45)
[2023-08-07] MEDS: Buprenorphine/Naloxone 2/0.5mg FILM 1 FILM SUBLINGUAL (08:45)
[2023-08-07] MEDS: Famotidine 20 MG TABLET PO (08:45)
--- NOTE | 2023-08-07 09:33 | P.PNNP_ITS ---
Subjective Subjective Date of Service: 08/07/23 Interval history: Events noted. Sodium is gradually improving. Rate of correction acceptable. Physical Exam 2 Vital Signs: Vital Signs: Last Vital Signs Temp 96.8 F 08/07/23 07:17 Pulse 78 08/07/23 07:17 Resp 16 08/07/23 07:17 BP 138/71 08/07/23 07:17 Pulse Ox 97 08/07/23 07:17 O2 Del Method Room Air 08/07/23 07:17 BMI result Body Mass Index 26.3 Awake. Comfortable. Neck is supple. Mucosa moist. Lungs bilateral scattered rhonchi. Heart S1-S2 heard no gallop. Abdomen soft. Extremities no edema. No involuntary movements. No myoclonus. Const: General: no acute distress, alert and awake Nutritional Appearance: not obese Orientation/consciousness: Other orientation findings ( oriented) HEENT: Head: Yes atraumatic Eyes: General: appearance normal, both eyes and all related structures S clerae: sclerae normal EOM: EOMs intact bilaterally Neck: Neck: Yes no lymphadenopathy, Yes trachea midline and Yes supple L ymphatic: no lymphadenopathy noted Resp: Effort & Inspection: normal respiratory effort, no respiratory distress and no use of accessory muscles Auscultation: clear to auscultation bilaterally Cardio: Rate: regular rate Rhythm: regular rhythm Heart sounds: no gallops, no murmurs and no rubs GI: Palpation (GI): Soft to palpation and Other GI palpation findings present ( Nontender) Auscultation: normal bowel sounds Skin: General skin exam: other ( warm) Extrem: General: Yes no pedal edema, No clubbing, No cyanosis and No edema Objective Data Labs 08/06/23 04:53 08/07/23 05:37 Labs: Laboratory Results - last 24 hr 08/06/23 08/07/23 14:07 05:37 Hold Purple Top SEE NOTE Sodium 124 L 125 L Potassium 4.8 4.4 Chloride 91 L 93 L Carbon Dioxide 23 23 Anion Gap 15 13 BUN 6 L 6 L Creatinine 0.64 0.60 Estim Creat Clear Calc 167.9 179.1 Estimated GFR > 60 > 60 Random Glucose 105 92 Calcium 9.6 9.6 Phosphorus 5.4 H Magnesium 2.0 Procedures Date of Service Date of Service: 08/10/23 Assessment & Plan Assessment and plan (1) Hyponatremia: Status: Acute Plan Hyponatremia Hypotonia Primarily due to excessive free water intake He was on Depakote, which could also contribute TSH normal rate of correction acceptable so far Keep on p.o. water restriction. No indication for hypertonic saline. Add 2 doses of urea powder to increase osmotic load and correct serum sodium. Time Spent With Patient Time: Total time managing care of this patient today ____ minutes. Progress Note: Quality Stroke Does the patient have a stroke diagnosis?: No
[2023-08-07] MEDS: Urea 15 GM POWDER PO (10:42)
--- NOTE | 2023-08-07 11:36 | PM.DS ---
DS: Providers Provider Date of Service: 08/07/23 Date of admission: 08/05/23 14:32 Date of discharge: 08/07/23 Primary care physician: None Physician Consults: 08/06/23 10:53 Consult to Nephrology Routine Consulting Provider: [facility] Reason for consultation: Hyponatremia Has provider been notified: No DS: Diagnosis Discharge Diagnosis (1) Hyponatremia: Status: Acute DS: Summary Hospital Course Hospital Course: 32-year-old gentleman with underlying history of substance abuse, hyponatremia supposed to be on sodium tabs, TBI, psychosis, hypothyroidism, on daily fluid restriction of 1.5 L, chronic leg edema on 20 mg a day of Lasix sent from [facility] for hyponatremia. On ER initial sodium level of 113. Patient with no neurologic symptoms, admitting to drinking paroxysmally 100-120 oz of fluids daily over the last 5 days. Hospital course Patient admitted initially to ICU and sodium corrected as per protocol. Sodium stabilize his transfer to general medical floor. He was restarted on sodium chloride tablets. He was seen in consultation by Nephrology who recommended urea packs x2. Patient received 1st dose prior to discharge. Sodium on the day of discharge 03/11; patient understands the importance of not drinking excessive amounts of fluids. At this point in time after discussing with Nephrology is medically acceptable return to [facility] and I will follow him there Time Attestation Discharge Coordination Time (in mins): 35 Quality: Safe Use of Opioids Does Pt have an Active Cancer Diagnosis on the Problem List?: No Quality: Stroke Does the patient have a stroke diagnosis?: No Physical Exam Vital Signs: Vital Signs: Last Vital Signs Temp 96.8 F 08/07/23 07:17 Pulse 78 08/07/23 07:17 Resp 16 08/07/23 07:17 BP 138/71 08/07/23 07:17 Pulse Ox 97 08/07/23 07:17 O2 Del Method Room Air 08/07/23 07:17 BMI result Body Mass Index 26.3 Const: Other: Awake alert no acute distress Resp: Other: Clear to auscultation bilaterally no rales rhonchi or wheezes Cardio: Other: No S4; positive S1-S2; no S3 murmurs rubs or gallops Neuro: Other: Cranial nerves 2-12 grossly intact as tested. Motor is 5/5 all extremities. Sensation is intact. Gait steady Extrem: Other: No edema bilaterally DS: Data Data Completed and Pending Labs on day of discharge: Laboratory Results - last 24 hr 08/06/23 08/07/23 14:07 05:37 Hold Purple Top SEE NOTE Sodium 124 L 125 L Potassium 4.8 4.4 Chloride 91 L 93 L Carbon Dioxide 23 23 Anion Gap 15 13 BUN 6 L 6 L Creatinine 0.64 0.60 Estim Creat Clear Calc 167.9 179.1 Estimated GFR > 60 > 60 Random Glucose 105 92 Calcium 9.6 9.6 Phosphorus 5.4 H Magnesium 2.0 Discharge Plan Discharge Anticipated Discharge Date/Time: 08/07/23 11:31 Patient Disposition: Xfer LT Discharge Diagnosis: Hyponatremia Referrals: Physician,None [Primary Care Provider] - 1 Week Discharge Medications: Continued benztropine 0.5 mg Tablet 0.5 mg PO DAILY acetaminophen 650 mg Tablet Extended Release 650 mg PO Q6H PRN (Reason: Elevated Temp) bisoprolol fumarate 5 mg Tablet 5 mg PO BID lorazepam [Lorazepam Intensol] 2 mg/mL Concentrate 1 mg PO Q5M PRN (Reason: Seizures) multivitamin Tablet 1 tab PO DAILY sennosides [senna] 8.6 mg Tablet 8.6 mg PO DAILY PRN (Reason: Constipation) chlorpromazine 100 mg Tablet 100 mg PO DAILY@0800 naloxone 0.4 mg/mL Solution 0.4 mg SUBCUT Q3M PRN (Reason: Suspected OD) Rx Instructions: NTExceed 10 mg total dose/episode clonazepam 0.5 mg Tablet 0.5 mg PO BID thiamine HCl (vitamin B1) 100 mg Tablet 100 mg PO DAILY famotidine 20 mg Tablet 20 mg PO BID levothyroxine [Synthroid] 50 mcg Tablet 50 mcg PO DAILY chlorpromazine 25 mg Tablet 25 mg PO DAILY@0800 sodium phosphates 19-7 gram/118 mL Enema 118 ml [place] DAILY PRN (Reason: If Bisacodyl not effective) docusate sodium [Colace] 100 mg Capsule 100 mg PO BID folic acid 1 mg Tablet 1 mg PO DAILY furosemide 20 mg Tablet 20 mg PO DAILY chlorpromazine 200 mg Tablet 200 mg PO DAILY@1400 chlorpromazine 200 mg Tablet 200 mg PO DAILY@2000 chlorpromazine 50 mg Tablet 50 mg PO DAILY@0800 divalproex [Depakote ER] 250 mg Tablet Extended Release 24 Hr 500 mg PO BEDTIME divalproex [Depakote ER] 250 mg Tablet Extended Release 24 Hr 250 mg PO DAILY buprenorphine-naloxone [Suboxone] 2-0.5 mg Film 1 film sublingual BID Rx Instructions: place 1 strip/tab under (each) side of tongue sodium chloride 1,000 mg Tablet,Soluble 3,000 mg PO DAILY Discharge Orders: Discharge Order (Routine); Ordered 08/07/23 Ordered By: Niraj Jarquin Diet: Advance to usual diet Activity on Discharge: As tolerated Stand Alone Forms: Patient Portal Discharge page Print Language: Cook Islander Care Plan Goals: Attempt to fluid restriction 1.5 L per day as tolerated Health Concerns: Patient received 1 packet of urea in hospital; resume sodium tabs as previously ordered Plan of Treatment: With follow-up labs with a CMP 08/10/2023 Assessment: See discharge summary
--- NOTE | 2023-08-07 11:56 | MHC.CM.PN ---
EMR reviewed. Per MD rounds patient medically cleared for dc back to [facility]. Patient's father will provide transport at 1230pm. RN, patient and facility aware.
== END 2023-08-07 12:33 | DRG 426 ==
LOC: HO.ED 14:07 → HO.EDOVER 14:34 → HO.ICU 14:59 → HO.S3 08-06 08:35
PROVIDERS: Physician Assistant; Admitting Provider Internal Medicine Pulmonary Disease; Emergency Provider Emergency Medicine; PCP Hospitalist; Visit Provider Hospitalist
DX: E87.1 Hypo-osmolality and hyponatremia (principal); F29 Unspecified psychosis not due to a substance or known physiological condition; E03.9 Hypothyroidism, unspecified; F11.20 Opioid dependence, uncomplicated; Z87.820 Personal history of traumatic brain injury; Z87.891 Personal history of nicotine dependence; Z79.890 Hormone replacement therapy; Z79.899 Other long term (current) drug therapy
CPT/HCPCS: 36415; 80048; 80053; 80164; 81003; 82570; 83735; 83930; 84100; 84300; 84443; 85025; 99221; 99285; J1644

== ENCOUNTER → 2023-08-05 14:32 | Outpatient (BNV) | payer MEDICAID, SELFPAY | PROVIDERS: Admitting Provider Internal Medicine Pulmonary Disease; Emergency Provider Emergency Medicine; Visit Provider Internal Medicine Hypertension Specialist | DX: E87.1 Hypo-osmolality and hyponatremia (principal) | CPT/HCPCS: 99223; 99232 ==

== ENCOUNTER → 2023-08-05 14:32 | Outpatient (BNV) | payer MEDICAID, SELFPAY | PROVIDERS: Admitting Provider Internal Medicine Pulmonary Disease; Emergency Provider Emergency Medicine; Visit Provider Internal Medicine Pulmonary Disease | DX: F29 Unspecified psychosis not due to a substance or known physiological condition (principal); S06.9XAA Unspecified intracranial injury with loss of consciousness status unknown, initial encounter; E03.9 Hypothyroidism, unspecified; E87.1 Hypo-osmolality and hyponatremia | CPT/HCPCS: 99223; 99232 ==

== ENCOUNTER → 2023-08-05 14:32 | Outpatient (BNV) | payer MEDICAID, SELFPAY | PROVIDERS: Admitting Provider Internal Medicine Pulmonary Disease; Emergency Provider Emergency Medicine; Visit Provider Hospitalist | DX: E87.1 Hypo-osmolality and hyponatremia (principal) | CPT/HCPCS: 99239 ==

== ENCOUNTER 2023-09-14 14:20 | Outpatient (AMB) | payer SELFPAY ==
[2023-09-14 14:32] VITALS: BP 110/66; PULSE 102; O2SAT 96; BMI 26.7
--- NOTE | 2023-09-14 14:32 | HO.NEPHOV_ITS ---
Vital Signs 09/14/23 14:32 Height 5 ft 10 in Weight 186 lb BMI 26.7 BP 110/66 Blood Pressure Location Rt brachial Position Sitting Pulse 102 H Pulse Source Pulse Oximeter Pulse Oximetry (%) 96 Oxygen Delivery Method Room Air Intake Visit Reasons: Hyponatremia Assistant Manager Bilingual Required: No Accompanied by: Self / Same As Patient Allergies No Known Allergies [No Known Allergies*] Allergy (Verified 09/14/23 14:34) Medication List - Last Reconciled 09/14/23 by Mitchel Jones MD acetaminophen ER 650 mg PO Q6H PRN benztropine 0.5 mg PO DAILY bisoprolol fumarate 5 mg PO BID buprenorphine-naloxone 2-0.5 mg (Suboxone) 1 film sublingual BID chlorpromazine 100 mg PO DAILY@0800 clonazepam 0.5 mg PO BID divalproex ER (Depakote ER) 250 mg PO DAILY docusate sodium (Colace) 100 mg PO BID famotidine 20 mg PO BID folic acid 1 mg PO DAILY levothyroxine 75 mcg PO DAILY lorazepam (Lorazepam Intensol) 1 mg PO Q5M PRN multivitamin 1 tab PO DAILY naloxone 0.4 mg subcut Q3M PRN sennosides (senna) 8.6 mg PO DAILY PRN sodium chloride 1,000 mg PO TID sodium phosphates 19-7 gram/118 mL 118 mL [place] DAILY PRN thiamine HCl (vitamin B1) 100 mg PO DAILY HPI Comments Details: 32-year-old man with underlying history of substance abuse, hyponatremia supposed to be on sodium tabs, TBI, psychosis, hypothyroidism, on daily fluid restriction of 1.5 L, chronic leg edema on 20 mg a day of Lasix sent from [facility] for hyponat[facility]. In ER initial sodium level of 113. Initailly admitted to ICU Sodium has gradually corrected. Currently he is on sodium chloride tablets 3 g t.i.d.. Recent sodium level was 136. [facility] Medical History (Updated 09/14/23 @ 14:53 by Mitchel Jones MD) Hyponatremia Hypothyroidism Opiate use Psychosis Impulse disorder TBI (traumatic brain injury) Social History Housing: Alf Do you presently have visiting nurse or other home services: No Patient Tobacco Use Status: Former Tobacco user service: No Physical Exam Vital Signs: Last Vital Signs Pulse 102 H 09/14/23 14:32 BP 110/66 09/14/23 14:32 Pulse Ox 96 09/14/23 14:32 Oxygen Delivery Method Room Air 09/14/23 14:32 BMI result Body Mass Index 26.7 Const General: comfortable; No acute distress Orientation/consciousness: patient oriented x3 Eyes General: appearance normal, both eyes and all related structures Visual Luna: normal visual luna by confrontation Neck Neck: Yes supple and Yes no JVD Resp Effort & Inspection: normal respiratory effort and respiratory effort not decreased Auscultation: rhonchi Cardio Palpation: no palpable S3 and no palpable S4 Heart sounds: no rubs GI Inspection: Yes normal to inspection Palpation (GI): Soft to palpation Percussion: Yes normal to percussion Auscultation: normal bowel sounds General: Yes no CVA tenderness Back/Spine/Pelvis Back: no CVA tenderness Skin General skin exam: no petechiae and no purpura Neuro General: patient oriented x3 and no focal motor deficits Extrem General: No clubbing and No edema Results Reviewed Nephrology Results: Hgb 12.4 g/dl (14.0-18.0) L 08/06/23 WBC 3.1 X10*3/uL (4.8-10.8) L 08/06/23 Plt Count 212 X10*3/uL (160-400) 08/06/23 Sodium 125 mmol/L (135-145) L 08/07/23 Potassium 4.4 mmol/L (3.3-5.1) 08/07/23 Chloride 93 mmol/L (96-108) L 08/07/23 Carbon Dioxide 23 mmol/L (22-29) 08/07/23 BUN 6 mg/dL (9-16) L 08/07/23 Creatinine 0.60 mg/dL (0.5-1.4) 08/07/23 Calcium 9.6 mg/dL (8.4-10.2) 08/07/23 Phosphorus 5.4 mg/dL (2.7-4.5) H 08/07/23 Urine Protein Negative mg/dL (Neg-Trace) 08/05/23 Urine Creatinine 48.40 mg/dL 08/05/23 Assessment & Plan Assessment & Plan (1) Hyponatremia: Code(s): E87.1 - Hypo-osmolality and hyponatremia Category: Medical Plan: Primarily due to non osmotic ADH release leading to decreased free water clearance. Limit oral free water intake to 1.2 L per 24 hours. Decrease sodium chloride tablets to 1 g PO TID. Gradually taper sodium chloride tablets as tolerated. Monitor serum sodium levels and maintain serum sodium more than 133 millimoles. Orders: Orders Basic Metabolic Panel 2 Weeks E87.1 - Hypo-osmolality and hyponatremia Coding Level of Care Code Est Pt Level 4 (39191) Diagnoses Hyponatremia E87.1
== END 2023-09-14 14:54 | disposition home or self-care (01) ==
PROVIDERS: PCP Hospitalist; Visit Provider Internal Medicine Hypertension Specialist
DX: E87.1 Hypo-osmolality and hyponatremia (principal)
CPT/HCPCS: 99214

== ENCOUNTER → 2023-09-14 14:20 | Outpatient (BNVA) | payer MEDICAID, SELFPAY | PROVIDERS: PCP Hospitalist; Visit Provider Internal Medicine Hypertension Specialist | DX: E87.1 Hypo-osmolality and hyponatremia (principal) | CPT/HCPCS: 99212 ==

== ENCOUNTER 2023-10-20 17:57 | Inpatient (IN) | payer MEDICAID, SELFPAY ==
--- NOTE | ~2023-10-20 | CT_ITS ---
EXAMINATION: CT HEAD WITHOUT CONTRAST CLINICAL INFORMATION: Seizures COMPARISON: None. TECHNIQUE: Contiguous axial imaging was performed from the skull base to vertex without intravenous administration of contrast. Coronal and sagittal reformatted images are performed at the CT scanner. This CT examination was performed using dose optimization techniques as appropriate, variously including the following: *Automated exposure control *Adjustment of mA and/or kV according to patient size (this includes techniques or standardized protocols for targeted exams where dose is matched to indication/reason for exam; i.e. extremities or head) *Use of iterative reconstruction technique DLP: 629 mGy-cm. FINDINGS: Status post left yuczseb-[id number]-owrezvnn craniotomy. There is no evidence of acute intracranial hemorrhage or territorial infarction. No abnormal mass-effect or midline shift is seen. [place] to white matter differentiation is well preserved. No extra-axial fluid collections are identified. The ventricles are normal in size. There is no abnormal attenuation within the brain parenchyma. There is no osseous abnormality. The mastoid air cells and visualized portions of the paranasal sinuses are well-aerated. CT/CT head/brain wo IV con IMPRESSION: No acute intracranial pathology. Electronically signed by: Dev Jimenez MD 10/20/2023 08:35 PM EDT
--- NOTE | 2023-10-20 18:03 | MHC.EDTECH ---
Patient is from [facility]. Phone number is . Extension for the unit is [phone]
[2023-10-20 18:05] VITALS: BP 100/46; PULSE 92; RESP 16; TEMP 36.8; O2SAT 95; BMI 31.8
[2023-10-20 18:06] VITALS: BP 118/54; PULSE 100; O2SAT 98
[2023-10-20 18:20] VITALS: BMI 28.8
[2023-10-20 19:07] VITALS: BP 102/61; PULSE 83; RESP 16; O2SAT 95
[2023-10-20 19:28] LABS: Basophils Percent Auto 0.3 % (0-2); Eosinophils Absolute Auto 0.1 X10*3/uL (0.0-0.4); Eosinophils Percent Auto 1.9 % (0-4); Hematocrit 32.9 % (42.0-52.0); Imm Gran Abs Auto 0.04 X10*3/uL (0.00-0.03); Imm Gran Pct Auto 0.6 % (0.0-0.4); Lymphocytes Absolute Auto 1.4 X10*3/uL (1.2-4.9); Lymphocytes Percent Auto 20.4 % (20-40); MANUAL DIFF FLAG NO; Mean Corpuscular HGB Conc 36.5 g/dl (31.0-36.0); Mean Corpuscular Hemoglobin 29.6 pg (27.0-33.0); Mean Platelet Volume 9.1 fL (9.4-12.4); Monocytes Absolute Auto 0.7 X10*3/uL (0.1-1.2); Monocytes Percent Auto 9.4 % (2-11); Neutrophils Absolute Auto 4.7 x10*3/uL (2.0-8.3); Neutrophils Percent Auto 67.4 % (45-73); Platelet Count 243 X10*3/uL (160-400); Red Blood Count 4.06 X10*6/uL (4.60-5.80); Red Cell Distribution Width 12.6 % (11.0-16.0); White Blood Count 6.9 X10*3/uL (4.8-10.8)
--- NOTE | 2023-10-20 19:28 | PC.NURSE ---
Assumed care of pt. pt bozena ta, father at bedside. See assessment for further details. pending Labs/CT for dispo.
[2023-10-20] MEDS: levETIRAcetam in NaCl (iso-os) 1,500 MG/100 ML PIGGYBACK 400 MG IV (19:35)
[2023-10-20 19:47] LABS: Valproate 14.6 mcg/mL (50.0-100.0)
[2023-10-20 19:50] LABS: Alanine Aminotransferase 16 U/L (0-40); Albumin Level 3.9 g/dL (3.5-5.0); Alkaline Phosphatase 111 U/L (39-117); Anion Gap 18 (12-20); Aspartate Amino Transferase 18 U/L (5-37); Bilirubin Total 0.2 mg/dL (0.0-1.0); Blood Urea Nitrogen 11 mg/dL (9-16); Calcium 8.8 mg/dL (8.4-10.2); Carbon Dioxide 16 mmol/L (22-29); Chloride 90 mmol/L (96-108); Creatinine Clr Calc Pharmacy 161.2; Estimated Glomerular Filt Rate > 60; Ethanol < 10 mg/dL; Glucose Random 89 mg/dL (60-115); Magnesium 1.7 mg/dL (1.6-2.6); Potassium 3.6 mmol/L (3.3-5.1); Sodium 120 mmol/L (135-145); Total Protein 6.2 g/dL (6.5-8.0)
[2023-10-20 20:35] LABS: Amphetamine Screen Urine Not Detected (Not Detect); Barbiturates, Urine Not Detected (Not Detect); Benzodiazepines Screen Urine Not Detected (Not Detect); Buprenorphine Scr Positive (Not Detect); Cannabinoid Screen Urine Not Detected (Not Detect); Cocaine Screen Urine Not Detected (Not Detect); Fentanyl, urine Not Detected (Not Detect); Methadone Screen, Urine Not Detected (Not Detect); Opiate Screen Urine Not Detected (Not Detect); Oxycodone Screen Urine Not Detected (Not Detect); Phencyclidine Screen Urine Not Detected (Not Detect)
--- NOTE | 2023-10-20 21:09 | ED_ITS ---
HPI - Seizure General Chief Complaint: Seizure Stated Complaint: SEIZURE NO HX PER EMS Time Seen by Provider: 10/20/23 19:09 Source: patient Limitations: no limitations History of Present Illness ED Provider: Anila Gann PA-C HPI Narrative: 32-year-old male with history of TBI, impulse disorder, prior psychosis, hypothyroidism, and chronic hyponatremia presents after a seizure. Per the patient's father, they read dinner. His sudden became very tense, he developed contractures of bilateral upper extremities, his eyes rolled back in his head, he was clenching his teeth and was not responding to the family. The episode lasted approximately 90 seconds. Following the episode, the patient was fatigued. There was no associated urinary incontinence, the patient did not bite his tongue, no traumatic injury was sustained. The patient is volume restricted to 1.5 L a day, he also takes sodium chloride tablets. The patient states he has been adherent with his medications and fluid restriction. There have been no recent medication changes. The patient still uses Depakote and Thorazine. Related Data Home Medications ?Medication ?Instructions ?Recorded ?Confirmed acetaminophen 650 mg 650 mg PO Q6H PRN Elevated Temp 08/05/23 10/20/23 tablet,extended release bisoprolol fumarate 5 mg tablet 5 mg PO DAILY 08/05/23 10/20/23 buprenorphine 2 mg-naloxone 0.5 mg 1 film sublingual DAILY 08/05/23 10/20/23 sublingual film (Suboxone) chlorpromazine 100 mg tablet 100 mg PO BID 08/05/23 10/20/23 clonazepam 0.5 mg tablet 0.5 mg PO BID 08/05/23 10/20/23 divalproex 250 mg tablet,extended 250 mg PO BID 08/05/23 10/20/23 release 24 hr (Depakote ER) docusate sodium 100 mg capsule 100 mg PO BID 08/05/23 10/20/23 (Colace) famotidine 20 mg tablet 20 mg PO BID 08/05/23 10/20/23 folic acid 1 mg tablet 1 mg PO DAILY 08/05/23 10/20/23 lorazepam 2 mg/mL oral concentrate 1 mg PO Q5M PRN Seizures 08/05/23 10/20/23 (Lorazepam Intensol) multivitamin 1 tab PO DAILY 08/05/23 10/20/23 naloxone 0.4 mg/mL injection 0.4 mg subcut Q3M PRN Suspected OD 08/05/23 10/20/23 solution sennosides 8.6 mg tablet (senna) 8.6 mg PO DAILY PRN Constipation 08/05/23 10/20/23 sodium phosphates 19 gram-7 118 ml MN DAILY PRN If Bisacodyl 08/05/23 10/20/23 gram/118 mL enema not effective thiamine HCl (vitamin B1) 100 mg 100 mg PO DAILY 08/05/23 10/20/23 tablet levothyroxine 75 mcg capsule 75 mcg PO DAILY@0600 09/14/23 10/20/23 sodium chloride 1,000 mg soluble 1,000 mg PO TID 09/14/23 10/20/23 tablet Allergies Allergy/AdvReac Type Severity Reaction Status Date / Time No Known Allergies Allergy Verified 10/20/23 18:12 [No Known Allergies*] Review of Systems 2 Review of Systems: Yes all other systems are reviewed and are negative Constitutional: Constitutional: Denies fatigue and Denies fever(s) Cardiovascular: Cardiovascular: Denies dyspnea Respiratory: Respiratory: Denies dyspnea Gastrointestinal: Gastrointestinal: Denies vomiting Endocrine: Endocrine: Denies fatigue PMFSH Past Medical History Attestation statement: The following information was validated with the patient. Medical History (Updated 10/20/23 @ 21:19 by RUSS Carranza) Hyponatremia Hypothyroidism Opiate use Psychosis Impulse disorder TBI (traumatic brain injury) Social History Social History Housing: Prison Do you presently have visiting nurse or other home services: No Patient Tobacco Use Status: Former Tobacco user Smoked in Last 30 Days: No Use of substances other than those prescribed or required for medical reasons: No Advance Directives: No Advance Directives Information Provided: No Do you have a plan to hurt others: No Plan service: No Physical Exam 2 Vital Signs: Vital Signs: Last Vital Signs Temp 97.9 F 10/20/23 22:10 Pulse 71 10/20/23 22:10 Resp 16 10/20/23 22:10 BP 109/69 10/20/23 22:10 Pulse Ox 98 10/20/23 22:10 O2 Del Method Room Air 10/20/23 22:10 BMI result Body Mass Index 28.8 Const: Other: Awake, well in appearance Orientation/consciousness: patient oriented x3 Resp: Other: Nonlabored respirations Cardio: Other: Normal peripheral perfusion Skin: Other: Warm dry no rash Neuro: General: patient oriented x3, no focal motor deficits and CN's II-XI intact bilaterally Extrem: Other: Moves all extremities independently, strength 5/5 bilateral upper and lower extremities Psych: Other: Calm cooperative Course Reevaluation(s) Additional Reevaluation(s): p Consultations Consultation #1: paged Dr. Ren the women's soccer coach, she will have 1 of the providers who was on site, and assessed the patient, she is not convinced that the patient requires ICU level of care. She is in agreement with fluid restriction at this time. I am also concurrently paging renal for their input. Time: 21:41 Consultation #2: Paged Dr. Collazo, from Nephrology, they recommend holding hypertonic saline, to give 30 g a urea and 2 g of sodium chloride tablet, and fluid restrict to 40 oz in 24 hour. We will re- check morning labs and reassess I will be adding on urine sodium, cortisol, TSH Time: 21:43 Medications Administered Discontinued Medications Generic Name Dose Route Start Last Admin Trade Name Freq PRN Reason Stop Dose Admin Levetiracetam 1,500 mg in 100 mls @ 400 mls/hr 10/20/23 19:12 10/20/23 20:02 Keppra IV 10/20/23 19:26 Infused ONCE ONE Infusion Sodium Chloride 2 gm 10/20/23 21:54 10/20/23 22:27 Sodium Chloride Tab 1 Gm Tablet PO 10/20/23 21:55 2 gm ONCE ONE Administration Urea 30 gm 10/20/23 21:54 10/20/23 22:27 Urea 15 Gm Powder PO 10/20/23 21:55 30 gm ONCE ONE Administration Medical Decision Making Medical Decision Making [facility] Narrative: 32-year-old male with history of TBI, impulse disorder, prior psychosis, opiate use disorder on Suboxone, hypothyroidism, and chronic hyponatremia presents after a seizure. Per the patient's father, they read dinner. His sudden became very tense, he developed contractures of bilateral upper extremities, his eyes rolled back in his head, he was clenching his teeth and was not responding to the family. The episode lasted approximately 90 seconds. Following the episode, the patient was fatigued. There was no associated urinary incontinence, the patient did not bite his tongue, no traumatic injury was sustained. The patient is volume restricted to 1.5 L a day, he also takes sodium chloride tablets. The patient states he has been adherent with his medications and fluid restriction. There have been no recent medication changes. The patient still uses Depakote and Thorazine. Problem: TBI, psychiatric illness, chronic hyponatremia History: Per patient and father I have considered the following differential diagnoses: Brain herniation, brain tumor, drug/alcohol intoxication, electrolyte abnormality, new onset epilepsy Plan: It is concerning that the patient is chronically hyponatremic now here after having had a seizure. We will obtain a CT scan, obtaining screening labs. No injury sustained, no indication for additional imaging. The patient does have a substance abuse history, will screen and ethanol and drug screen. Patient is also on both Depakote and Thorazine, both medications the propensity to cause hyponatremia, given the fact that both the patient and his father state that he has been adherent with his fluid restriction and taking the sodium chloride tablets, he will likely require medication adjustment. I have independently reviewed the following tests: Labs: No leukocytosis, not anemic, sodium 120, chloride 90, no additional electrolyte abnormalities, serum ethanol negative, U tox positive for Suboxone CT brain:COMPARISON: None. TECHNIQUE: Contiguous axial imaging was performed from the skull base to vertex without intravenous administration of contrast. Coronal and sagittal reformatted images are performed at the CT scanner. This CT examination was performed using dose optimization techniques as appropriate, variously including the following: *Automated exposure control *Adjustment of mA and/or kV according to patient size (this includes techniques or standardized protocols for targeted exams where dose is matched to indication/reason for exam; i.e. extremities or head) *Use of iterative reconstruction technique DLP: 629 mGy-cm. FINDINGS: Status post left [id number] craniotomy. There is no evidence of acute intracranial hemorrhage or territorial infarction. No abnormal mass-effect or midline shift is seen. [place] to white matter differentiation is well preserved. No extra-axial fluid collections are identified. The ventricles are normal in size. There is no abnormal attenuation within the brain parenchyma. There is no osseous abnormality. The mastoid air cells and visualized portions of the paranasal sinuses are well-aerated. CT/CT head/brain wo IV con IMPRESSION: No acute intracranial pathology. Electronically signed by: Dev Jimenez MD 10/20/2023 08:35 PM EDT RP Lab Data 10/20/23 19:22 10/20/23 23:14 Labs: Lab Results 10/20/23 10/20/23 10/20/23 Range/Units 19:22 20:15 22:19 WBC 6.9 (4.8-10.8) X10*3/uL RBC 4.06 L (4.60-5.80) X10*6/uL Hgb 12.0 L (14.0-18.0) g/dl Hct 32.9 L (42.0-52.0) % MCV 81.0 (80.0-98.0) fL MCH 29.6 (27.0-33.0) pg MCHC 36.5 H (31.0-36.0) g/dl RDW 12.6 (11.0-16.0) % Plt Count 243 (160-400) X10*3/uL MPV 9.1 L (9.4-12.4) fL Immature Gran % (Auto) 0.6 H (0.0-0.4) % Neut % (Auto) 67.4 (45-73) % Lymph % (Auto) 20.4 (20-40) % Hernando % (Auto) 9.4 (2-11) % Eos % (Auto) 1.9 (0-4) % Baso % (Auto) 0.3 (0-2) % Lymph # (Auto) 1.4 (1.2-4.9) X10*3/uL [place]ando # (Auto) 0.7 (0.1-1.2) X10*3/uL Eos # (Auto) 0.1 (0.0-0.4) X10*3/uL Baso # (Auto) 0.0 (0.0-0.2) X10*3/uL Abs Immat Gran (auto) 0.04 H (0.00-0.03) X10*3/uL Absolute Neuts (auto) 4.7 (2.0-8.3) x10*3/uL Absolute Nucleated RBC 0.000 (0.0-0.012) X10*3/uL Nucleated RBC % (auto) 0.0 (0.0-0.2) /100WBC Sodium 120 L* (135-145) mmol/L Potassium 3.6 (3.3-5.1) mmol/L Chloride 90 L (96-108) mmol/L Carbon Dioxide 16 L (22-29) mmol/L Anion Gap 18 (12-20) BUN 11 (9-16) mg/dL Creatinine 0.71 (0.5-1.4) mg/dL Estim Creat Clear Calc 161.2 Estimated GFR > 60 Random Glucose 89 (60-115) mg/dL Calcium 8.8 D (8.4-10.2) mg/dL Magnesium 1.7 (1.6-2.6) mg/dL Total Bilirubin 0.2 (0.0-1.0) mg/dL AST 18 (5-37) U/L ALT 16 (0-40) U/L Alkaline Phosphatase 111 (39-117) U/L Total Protein 6.2 L (6.5-8.0) g/dL Albumin 3.9 (3.5-5.0) g/dL TSH 0.74 (0.32-4.0) uIU/mL Random Cortisol 2.6 ug/dL Urine Osmolality (373-1093) mosm/kg Ur Random Sodium mmol/L Urine Opiates Screen Not Detected (Not Detect) Ur Buprenorphine Scrn Positive H (Not Detect) ng/mL Ur Oxycodone Screen Not Detected (Not Detect) ng/mL Urine Methadone Screen Not Detected (Not Detect) ng/mL Urine Fentanyl Screen Not Detected (Not Detect) Ur Barbiturates Screen Not Detected (Not Detect) Valproic Acid 14.6 L (50.0-100.0) mcg/mL Ur Phencyclidine Scrn Not Detected (Not Detect) Ur Amphetamines Screen Not Detected (Not Detect) U Benzodiazepines Scrn Not Detected (Not Detect) Urine Cocaine Screen Not Detected (Not Detect) U Marijuana (THC) Screen Not Detected (Not Detect) Ethyl Alcohol < 10 mg/dL 10/20/23 10/20/23 Range/Units 22:20 23:14 WBC (4.8-10.8) X10*3/uL RBC (4.60-5.80) X10*6/uL Hgb (14.0-18.0) g/dl Hct (42.0-52.0) % MCV (80.0-98.0) fL MCH (27.0-33.0) pg MCHC (31.0-36.0) g/dl RDW (11.0-16.0) % Plt Count (160-400) X10*3/uL MPV (9.4-12.4) fL Immature Gran % (Auto) (0.0-0.4) % Neut % (Auto) (45-73) % Lymph % (Auto) (20-40) % [place]ando % (Auto) (2-11) % Eos % (Auto) (0-4) % Baso % (Auto) (0-2) % Lymph # (Auto) (1.2-4.9) X10*3/uL [place] # (Auto) (0.1-1.2) X10*3/uL Eos # (Auto) (0.0-0.4) X10*3/uL Baso # (Auto) (0.0-0.2) X10*3/uL Abs Immat Gran (auto) (0.00-0.03) X10*3/uL Absolute Neuts (auto) (2.0-8.3) x10*3/uL Absolute Nucleated RBC (0.0-0.012) X10*3/uL Nucleated RBC % (auto) (0.0-0.2) /100WBC Sodium 120 L* (135-145) mmol/L Potassium 4.0 (3.3-5.1) mmol/L Chloride 92 L (96-108) mmol/L Carbon Dioxide 20 L (22-29) mmol/L Anion Gap 12 (12-20) BUN 18 H (9-16) mg/dL Creatinine 0.64 (0.5-1.4) mg/dL Estim Creat Clear Calc 178.9 Estimated GFR > 60 Random Glucose 101 (60-115) mg/dL Calcium 8.7 (8.4-10.2) mg/dL Magnesium (1.6-2.6) mg/dL Total Bilirubin (0.0-1.0) mg/dL AST (5-37) U/L ALT (0-40) U/L Alkaline Phosphatase (39-117) U/L Total Protein (6.5-8.0) g/dL Albumin (3.5-5.0) g/dL TSH (0.32-4.0) uIU/mL Random Cortisol ug/dL Urine Osmolality 717 (373-1093) mosm/kg Ur Random Sodium 150.0 mmol/L Urine Opiates Screen (Not Detect) Ur Buprenorphine Scrn (Not Detect) ng/mL Ur Oxycodone Screen (Not Detect) ng/mL Urine Methadone Screen (Not Detect) ng/mL Urine Fentanyl Screen (Not Detect) Ur Barbiturates Screen (Not Detect) Valproic Acid (50.0-100.0) mcg/mL Ur Phencyclidine Scrn (Not Detect) Ur Amphetamines Screen (Not Detect) U Benzodiazepines Scrn (Not Detect) Urine Cocaine Screen (Not Detect) U Marijuana (THC) Screen (Not Detect) Ethyl Alcohol mg/dL Discharge Plan Discharge Clinical Impression: Hyponatremia, New onset seizure Patient Disposition: Admitted As Inpatient Print Language: Ukrainian
[2023-10-20 22:10] VITALS: BP 109/69; PULSE 71; RESP 16; TEMP 36.6; O2SAT 98
[2023-10-20] MEDS: Urea 15 GM POWDER 30 GM PO (22:27)
[2023-10-20] MEDS: Sodium Chloride Tab 1 GM TABLET 2 GM PO (22:27)
--- NOTE | 2023-10-20 22:27 | PHA.MEDREC ---
Addendum entered by Tobi Buckley RPh 10/20/23 22:31: Reviewed by [facility] Original Note: Pharmacy Consult ? Medication Reconciliation Pharmacy has completed the medication reconciliation. Utilized list from [facility] to confirm med list.
--- NOTE | 2023-10-20 22:30 | PM.EVENT ---
Documented by User: Mariana Koenig NP 10/20/23 22:54 Event Note Date of Service: 10/20/23 Event Note: Mr. Aguayo is a 32-year-old male with an underlying history of substance abuse on Suboxone, TBI, hyponatremia on sodium chloride tabs, volume restriction of 1.5 L a day, psychosis and? hypothyroidism who was brought to the ER after an episode of seizure activity.? His father reports that he suddenly became very tense, he developed contractures of bilateral upper extremities, his eyes rolled back in his head, he was clenching his teeth and was not responding to the family. The episode lasted approximately 90 seconds.? His father stated that he was out of it for a couple minutes after the episode. There was no associated urinary incontinence, the patient did not bite his tongue, no traumatic injury was sustained. In the ER, his initial sodium level was 120. The patient states he has been adherent with his medications and fluid restriction. There have been no recent medication changes. The patient still uses Depakote and Thorazine. Depakote level is subtherapeutic at 14.6 today. On my exam the patient was sleeping but easily arousable, neurologically intact, alert and oriented to person place and situation. Respiratory status stable on room air with O2 sat of 98%, RR 15. Hemodynamically stable with BP 111/66, HR 72.?At this time the patient does not require intensive care level of monitoring. Reassured by assessment and treatment provided in ED. Appreciate nephrology recommendations. The?ICU is available for any further concerns or clinical changes. Patient's care was discussed in detail with Dr. Ren.? She is aware of all the above as well as the plan of care for this patient. Time Spent With Patient Time: Total time managing care of this patient today ____ minutes. Documented by User: Lore Ren MD 10/21/23 07:43 Event Note Date of Service: 10/21/23
[2023-10-20 22:48] LABS: Osmolality Urine 717 mosm/kg (373-1093)
[2023-10-20 23:06] LABS: Cortisol Random 2.6 ug/dL; TSH reflex Free T4 0.74 uIU/mL (0.32-4.0)
[2023-10-20 23:52] LABS: Anion Gap 12 (12-20); Blood Urea Nitrogen 18 mg/dL (9-16); Calcium 8.7 mg/dL (8.4-10.2); Carbon Dioxide 20 mmol/L (22-29); Chloride 92 mmol/L (96-108); Creatinine Clr Calc Pharmacy 178.9; Estimated Glomerular Filt Rate > 60; Glucose Random 101 mg/dL (60-115); Sodium 120 mmol/L (135-145)
--- NOTE | 2023-10-21 00:08 | P.HPHOSP_ITS ---
History of Present Illness Date of Service: 10/21/23 Chief Complaint: Seizure This is a 32-year-old male with pertinent history of substance use disorder on Suboxone, chronic hyponatremia, TBI, hypothyroidism, mood disorder, gastroesophageal reflux disease who was brought to the emergency department for evaluation of seizure. Patient was eating a burger at a restaurant and soon after his father noticed that he developed jerking movement of his upper extremities and subsequently his eyes rolled back and he was not answering questions. This lasted for about 1-1/2 minutes. Patient does not remember the episode. States he never has had a seizure before. Following the episode, patient was fatigued and drowsy. States he is compliant with his medications and fluid restriction for hyponatremia. No fever, chills, chest discomfort, palpitations, shortness of breath, abdominal pain, changes in urinary or bowel habits. In the emergency department, sodium was found to be 120. Critical care team consulted and patient deemed to be stable to be admitted on medicine floor. Review of Systems 2 Constitutional: Constitutional: Reports fatigue Cardiovascular: Cardiovascular: Reports no additional cardiovascular complaints Respiratory: Respiratory: Reports no additional respiratory complaints Gastrointestinal: Gastrointestinal: Reports no additional gastrointestinal complaints Genitourinary: Genitourinary: Reports no additional male genitourinary complaints Neurologic: Reports seizure-like activity Endocrine: Endocrine: Reports fatigue PMFSH Medical History Hyponatremia Hypothyroidism Opiate use Psychosis Impulse disorder TBI (traumatic brain injury) Social History Housing: Intermediate Do you presently have visiting nurse or other home services: No Patient Tobacco Use Status: Former Tobacco user Smoked in Last 30 Days: No Use of substances other than those prescribed or required for medical reasons: No Advance Directives: No Advance Directives Information Provided: No Do you have a plan to hurt others: No Plan service: No Meds Allergies Allergy/AdvReac Type Severity Reaction Status Date / Time No Known Allergies Allergy Verified 10/20/23 18:12 [No Known Allergies*] Home Medications ?Medication ?Instructions ?Recorded ?Confirmed ?Last Taken ?Type acetaminophen 650 mg 650 mg PO Q6H PRN Elevated Temp 08/05/23 10/20/23 Unknown History tablet,extended release bisoprolol fumarate 5 mg tablet 5 mg PO DAILY 08/05/23 10/20/23 Unknown History buprenorphine 2 mg-naloxone 0.5 mg 1 film sublingual DAILY 08/05/23 10/20/23 Unknown History sublingual film (Suboxone) chlorpromazine 100 mg tablet 100 mg PO BID 08/05/23 10/20/23 Unknown History clonazepam 0.5 mg tablet 0.5 mg PO BID 08/05/23 10/20/23 Unknown History divalproex 250 mg tablet,extended 250 mg PO BID 08/05/23 10/20/23 Unknown History release 24 hr (Depakote ER) docusate sodium 100 mg capsule 100 mg PO BID 08/05/23 10/20/23 Unknown History (Colace) famotidine 20 mg tablet 20 mg PO BID 08/05/23 10/20/23 Unknown History folic acid 1 mg tablet 1 mg PO DAILY 08/05/23 10/20/23 Unknown History lorazepam 2 mg/mL oral concentrate 1 mg PO Q5M PRN Seizures 08/05/23 10/20/23 Unknown History (Lorazepam Intensol) multivitamin 1 tab PO DAILY 08/05/23 10/20/23 Unknown History naloxone 0.4 mg/mL injection 0.4 mg subcut Q3M PRN Suspected OD 08/05/23 10/20/23 Unknown History solution sennosides 8.6 mg tablet (senna) 8.6 mg PO DAILY PRN Constipation 08/05/23 10/20/23 Unknown History sodium phosphates 19 gram-7 118 ml OK DAILY PRN If Bisacodyl 08/05/23 10/20/23 Unknown History gram/118 mL enema not effective thiamine HCl (vitamin B1) 100 mg 100 mg PO DAILY 08/05/23 10/20/23 Unknown History tablet levothyroxine 75 mcg capsule 75 mcg PO DAILY@0600 09/14/23 10/20/23 Unknown History sodium chloride 1,000 mg soluble 1,000 mg PO TID 09/14/23 10/20/23 Unknown History tablet Physical Exam 2 Vital Signs and Narrative: Vital Signs: Last Vital Signs Temp 97.9 F 10/20/23 22:10 Pulse 71 10/20/23 22:10 Resp 16 10/20/23 22:10 BP 109/69 10/20/23 22:10 Pulse Ox 98 10/20/23 22:10 O2 Del Method Room Air 10/20/23 22:10 BMI result Body Mass Index 28.8 Middle-aged male lying in bed in no distress Neck supple, no JVD Regular rate and rhythm, S1-S2 heard Regular breath sounds bilaterally, no wheezing or crackles appreciated Abdomen soft nontender, no guarding, no rigidity Patient is awake, alert and oriented to self, place, time and person ; no focal motor deficit Psych: Normal mood No pedal edema Results Labs 10/20/23 19:22 10/20/23 23:14 Labs: Laboratory Results - last 24 hr 10/20/23 10/20/23 10/20/23 19:22 20:15 22:19 MCV 81.0 MCH 29.6 MCHC 36.5 H RDW 12.6 Plt Count 243 MPV 9.1 L Immature Gran % (Auto) 0.6 H Neut % (Auto) 67.4 Lymph % (Auto) 20.4 [place] % (Auto) 9.4 Eos % (Auto) 1.9 Baso % (Auto) 0.3 Lymph # (Auto) 1.4 [place] # (Auto) 0.7 Eos # (Auto) 0.1 Baso # (Auto) 0.0 Abs Immat Gran (auto) 0.04 H Absolute Neuts (auto) 4.7 Absolute Nucleated RBC 0.000 Nucleated RBC % (auto) 0.0 Anion Gap 18 Estim Creat Clear Calc 161.2 Estimated GFR > 60 Random Glucose 89 Calcium 8.8 D Magnesium 1.7 Total Bilirubin 0.2 AST 18 ALT 16 Alkaline Phosphatase 111 Total Protein 6.2 L Albumin 3.9 TSH 0.74 Random Cortisol 2.6 Urine Osmolality Ur Random Sodium Urine Opiates Screen Not Detected Ur Buprenorphine Scrn Positive H Ur Oxycodone Screen Not Detected Urine Methadone Screen Not Detected Urine Fentanyl Screen Not Detected Ur Barbiturates Screen Not Detected Valproic Acid 14.6 L Ur Phencyclidine Scrn Not Detected Ur Amphetamines Screen Not Detected U Benzodiazepines Scrn Not Detected Urine Cocaine Screen Not Detected U Marijuana (THC) Screen Not Detected Ethyl Alcohol < 10 10/20/23 10/20/23 22:20 23:14 MCV MCH MCHC RDW Plt Count MPV Immature Gran % (Auto) Neut % (Auto) Lymph % (Auto) [place] % (Auto) Eos % (Auto) Baso % (Auto) Lymph # (Auto) [place] # (Auto) Eos # (Auto) Baso # (Auto) Abs Immat Gran (auto) Absolute Neuts (auto) Absolute Nucleated RBC Nucleated RBC % (auto) Anion Gap 12 Estim Creat Clear Calc 178.9 Estimated GFR > 60 Random Glucose 101 Calcium 8.7 Magnesium Total Bilirubin AST ALT Alkaline Phosphatase Total Protein Albumin TSH Random Cortisol Urine Osmolality 717 Ur Random Sodium 150.0 Urine Opiates Screen Ur Buprenorphine Scrn Ur Oxycodone Screen Urine Methadone Screen Urine Fentanyl Screen Ur Barbiturates Screen Valproic Acid Ur Phencyclidine Scrn Ur Amphetamines Screen U Benzodiazepines Scrn Urine Cocaine Screen U Marijuana (THC) Screen Ethyl Alcohol Imaging Radiologist's Impressions: Impressions Head CT 10/20/23 19:23 IMPRESSION: No acute intracranial pathology. Electronically signed by: Dev Jimenez MD 10/20/2023 08:35 PM EDT RP Assessment and Plan (1) Hyponatremia: Status: Acute Plan This is a 32-year-old male with pertinent history of substance use disorder on Suboxone, chronic hyponatremia, TBI, hypothyroidism, mood disorder, gastroesophageal reflux disease who was brought to the emergency department for evaluation of seizure. #. 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 On sodium chloride tablets. Nephrology was consulted in the ER > Patient given 30 g urea and 2 g sodium chloride tablet in the ER. Closely monitor electrolytes. TSH okay #. Seizure, new onset: ?Likely in the setting of above. Valproic acid level low. Patient loaded with Keppra in the time of admission. On Depakote. Consulted Neurology #. Mood disorder: On chlorpromazine, clonazepam #. Hypothyroidism: On Synthroid #. Gastroesophageal reflux disease: On famotidine #. Opioid use disorder: On Suboxone Med rec pending DVT prophylaxis: Lovenox Full code Admit as inpatient and will require two night minimum hospital stay for close monitoring of electrolytes (as above), which is not possible in a lesser acute setting. Specialist consult pending Quality Stroke Does the patient have a stroke diagnosis?: No VTE Prior VTE?: No VTE Risk Level:: Medical - moderate - high VTE Device Contraindication: Treatment Not Indicated VTE Drug Contraindication: N/A - Med Ordered
[2023-10-21 01:06] VITALS: BP 130/74; PULSE 69; RESP 13; TEMP 36.8; O2SAT 96
[2023-10-21] MEDS: Divalproex Sodium 250 MG TABLET.DR PO (01:57)
[2023-10-21] MEDS: Enoxaparin Sodium 40 MG/0.4 ML SYRINGE SUBCUT (01:57)
[2023-10-21] MEDS: clonazePAM 0.5 MG TABLET PO (01:57)
[2023-10-21] MEDS: chlorproMAZINE HCl 100 MG TABLET PO ×2 (01:57→21:03)
[2023-10-21 05:00] LABS: MANUAL DIFF FLAG NO
[2023-10-21 05:01] LABS: Basophils Percent Auto 0.3 % (0-2); Eosinophils Absolute Auto 0.1 X10*3/uL (0.0-0.4); Eosinophils Percent Auto 2.3 % (0-4); Imm Gran Abs Auto 0.02 X10*3/uL (0.00-0.03); Imm Gran Pct Auto 0.3 % (0.0-0.4); Lymphocytes Absolute Auto 1.7 X10*3/uL (1.2-4.9); Lymphocytes Percent Auto 28.6 % (20-40); Mean Corpuscular HGB Conc 37.1 g/dl (31.0-36.0); Mean Corpuscular Volume 80.6 fL (80.0-98.0); Mean Platelet Volume 9.3 fL (9.4-12.4); Monocytes Absolute Auto 0.6 X10*3/uL (0.1-1.2); Monocytes Percent Auto 10.3 % (2-11); Neutrophils Absolute Auto 3.5 x10*3/uL (2.0-8.3); Neutrophils Percent Auto 58.2 % (45-73); Platelet Count 241 X10*3/uL (160-400); Red Blood Count 4.34 X10*6/uL (4.60-5.80); Red Cell Distribution Width 12.7 % (11.0-16.0)
[2023-10-21 05:19] LABS: Anion Gap 11 (12-20); Blood Urea Nitrogen 24 mg/dL (9-16); Calcium 8.9 mg/dL (8.4-10.2); Carbon Dioxide 22 mmol/L (22-29); Chloride 91 mmol/L (96-108); Creatinine Clr Calc Pharmacy 170.9; Estimated Glomerular Filt Rate > 60; Glucose Random 95 mg/dL (60-115); Sodium 120 mmol/L (135-145)
--- NOTE | 2023-10-21 08:44 | MHC.CM.PN ---
Goal is for Patient to return to LTC @ [facility]; via BLS VS Father/Guardian/Carlito's transport. DAVID has initiated and will follow for dc planning. PCP is Dr. Niraj Jarquin. DAVID has asked [facility] to fax a copy of the Guardianship to DAVID.
[2023-10-21 09:21] VITALS: BP 109/66; PULSE 82; RESP 18; TEMP 36.8; O2SAT 97
[2023-10-21] MEDS: 0.9 % Sodium Chloride Flush 3 ML SYRINGE IVFLUSH ×3 (09:22→21:07)
--- NOTE | 2023-10-21 09:24 | PC.NURSE ---
resting quietly in room with even and unlabored respirations. arousable to verbal stimuli. patient's only complaint at this time is that he is tired and he did not sleep well last night. awaiting bed assignment, call [facility] within reach
[2023-10-21] MEDS: Buprenorphine/Naloxone 2/0.5mg FILM 1 FILM SUBLINGUAL (11:19)
[2023-10-21] MEDS: Divalproex Sodium ER 500 MG TAB.ER.24H PO ×2 (11:19→21:03)
[2023-10-21] MEDS: Levothyroxine Sodium 75 MCG TABLET PO (11:19)
--- NOTE | 2023-10-21 11:56 | PC.NURSE ---
Addendum entered by Samara Jarquin 10/21/23 12:09: alert and oriented, respirations even and unlabored. medicated per the MAR, provided with sandwich and kenroy nicole at this time. Original Note: update given to [facility], facility stating that upon patient discharge to call [facility] at [phone] for transportation.
[2023-10-21] MEDS: Acetaminophen 325 MG TABLET 650 MG PO (12:06)
[2023-10-21] MEDS: Sodium Chloride Tab 1 GM TABLET 2 GM PO ×2 (12:06→21:04)
[2023-10-21] MEDS: Urea 15 GM POWDER 30 GM PO ×2 (12:07→21:01)
--- NOTE | 2023-10-21 12:10 | P.CNNE_ITS ---
History of Present Illness Data of Consult Service Date: 10/21/23 Primary Care Provider: Niraj Jarquin DO HPI Reason for consult: Seizure 32 years old man with alcohol and drug abuse apparently came to hospital after he was noted to be seizing. He did not know what happened. He said that he never had a seizure before and when I saw him in emergency room he said that he wanted to go home. His initial serum sodium was quite low, 114 and now he was slowly being corrected. He was not taking any medicine that typically could decreased serum sodium. Review of Systems 2 Review of Systems: No recent cold or flu-like illness or trauma. [facility] Past Medical History Medical History Hyponatremia Hypothyroidism Opiate use Psychosis Impulse disorder TBI (traumatic brain injury) Social History Social History Housing: Senior Living Do you presently have visiting nurse or other home services: No Patient Tobacco Use Status: Former Tobacco user Smoked in Last 30 Days: No Use of substances other than those prescribed or required for medical reasons: No Advance Directives: No Advance Directives Information Provided: No Do you have a plan to hurt others: No Plan service: No Meds Allergies Allergy/AdvReac Type Severity Reaction Status Date / Time No Known Allergies Allergy Verified 10/20/23 18:12 [No Known Allergies*] Active Medications: Current Medications Acetaminophen (Acetaminophen 325 Mg Tablet) 650 mg PO Q6H PRN PRN Reason: Pain, Mild (Pain Scale 1-3), fever or headache Last Admin: 10/21/23 12:06 Dose: 650 mg Buprenorphine/Naloxone (Buprenorphine/Naloxone 2/0.5mg Film) 1 film SUBLINGUAL DAILY [facility] Last Admin: 10/21/23 11:19 Dose: 1 film Calcium Carbonate (Calcium Carbonate 750 Mg Tab.Chew) 750 mg PO Q4H PRN PRN Reason: Heartburn Chlorpromazine HCl (Chlorpromazine Hcl 100 Mg Tablet) 100 mg PO BID [facility] Divalproex Sodium (Divalproex Sodium Er 500 Mg Tab.Er.24h) 500 mg PO BID [facility] Last Admin: 10/21/23 11:19 Dose: 500 mg Docusate Sodium (Docusate Sodium 100 Mg Capsule) 100 mg PO BID [facility] Enoxaparin Sodium (Enoxaparin Sodium 40 Mg/0.4 Ml Syringe) 40 mg SUBCUT Q24H [facility] Last Admin: 10/21/23 01:57 Dose: 40 mg Famotidine (Famotidine 20 Mg Tablet) 20 mg PO BID [facility] Folic Acid (Folic Acid 1 Mg Tablet) 1 mg PO DAILY [facility] Levothyroxine Sodium (Levothyroxine Sodium 75 Mcg Tablet) 75 mcg PO DAILY@0600 [facility] Last Admin: 10/21/23 11:19 Dose: 75 mcg Lorazepam (Lorazepam 2 Mg/Ml Vial) 2 mg IVPUSH Q2H PRN PRN Reason: Seizures Magnesium Hydroxide (Milk Of Magnesia 30 Ml Oral.Susp) 30 ml PO DAILY PRN PRN Reason: Constipation Melatonin (Melatonin 3 Mg Tablet) 6 mg PO BEDTIME PRN PRN Reason: Insomnia Multivitamins/Vitamin C (Multivitamin Tablet) 1 tab PO DAILY [facility] Ondansetron HCl (Ondansetron Hcl 4 Mg/2 Ml Vial) 4 mg IVPUSH Q8H PRN PRN Reason: Nausea and Vomiting Senna (Sennosides 8.6 Mg Tablet) 8.6 mg PO DAILY PRN PRN Reason: Constipation Sodium Chloride (0.9 % Sodium Chloride Flush 3 Ml Syringe) 3 ml IVFLUSH QSHIFT [facility] Last Admin: 10/21/23 09:22 Dose: 3 ml Sodium Chloride (Sodium Chloride Tab 1 Gm Tablet) 2 gm PO BID [facility] Last Admin: 10/21/23 12:06 Dose: 2 gm Thiamine HCl (Thiamine Hcl 100 Mg Tablet) 100 mg PO DAILY [facility] Urea (Urea 15 Gm Powder) 30 gm PO BID [facility] Last Admin: 10/21/23 12:07 Dose: 30 gm Home Medications ?Medication ?Instructions ?Recorded ?Confirmed ?Last Taken ?Type acetaminophen 650 mg 650 mg PO Q6H PRN Elevated Temp 08/05/23 10/20/23 Unknown History tablet,extended release bisoprolol fumarate 5 mg tablet 5 mg PO DAILY 08/05/23 10/20/23 Unknown History buprenorphine 2 mg-naloxone 0.5 mg 1 film sublingual DAILY 08/05/23 10/20/23 Unknown History sublingual film (Suboxone) chlorpromazine 100 mg tablet 100 mg PO BID 08/05/23 10/20/23 Unknown History clonazepam 0.5 mg tablet 0.5 mg PO BID 08/05/23 10/20/23 Unknown History divalproex 250 mg tablet,extended 250 mg PO BID 08/05/23 10/20/23 Unknown History release 24 hr (Depakote ER) docusate sodium 100 mg capsule 100 mg PO BID 08/05/23 10/20/23 Unknown History (Colace) famotidine 20 mg tablet 20 mg PO BID 08/05/23 10/20/23 Unknown History folic acid 1 mg tablet 1 mg PO DAILY 08/05/23 10/20/23 Unknown History lorazepam 2 mg/mL oral concentrate 1 mg PO Q5M PRN Seizures 08/05/23 10/20/23 Unknown History (Lorazepam Intensol) multivitamin 1 tab PO DAILY 08/05/23 10/20/23 Unknown History naloxone 0.4 mg/mL injection 0.4 mg subcut Q3M PRN Suspected OD 08/05/23 10/20/23 Unknown History solution sennosides 8.6 mg tablet (senna) 8.6 mg PO DAILY PRN Constipation 08/05/23 10/20/23 Unknown History sodium phosphates 19 gram-[address] DAILY PRN If Bisacodyl 08/05/23 10/20/23 Unknown History gram/118 mL enema not effective thiamine HCl (vitamin B1) 100 mg 100 mg PO DAILY 08/05/23 10/20/23 Unknown History tablet levothyroxine 75 mcg capsule 75 mcg PO DAILY@0600 09/14/23 10/20/23 Unknown History sodium chloride 1,000 mg soluble 1,000 mg PO TID 09/14/23 10/20/23 Unknown History tablet Physical Exam 2 Vital Signs: Vital Signs: Last Vital Signs Temp 98.3 F 10/21/23 09:21 Pulse 82 10/21/23 09:21 Resp 18 10/21/23 09:21 BP 109/66 10/21/23 09:21 Pulse Ox 97 10/21/23 09:21 O2 Del Method Room Air 10/21/23 09:21 BMI result Body Mass Index 28.8 Neuro: Other: He is alert and awake with normal spontaneity of speech fluency comprehension and somewhat anxious affect. Face is symmetrical. Visual huynh are full. Plantars are flexor. Deep tendon reflexes are trace to absent. Results Labs 10/21/23 04:45 10/21/23 04:45 Labs: Short CBC 10/20/23 10/21/23 Range/Units 19:22 04:45 WBC 6.9 6.0 (4.8-10.8) X10*3/uL Hgb 12.0 L 13.0 L (14.0-18.0) g/dl Hct 32.9 L 35.0 L (42.0-52.0) % Plt Count 243 241 (160-400) X10*3/uL BMP 10/20/23 10/20/23 10/21/23 19:22 23:14 04:45 Sodium 120 L* 120 L* 120 L* Potassium 3.6 4.0 4.0 Chloride 90 L 92 L 91 L Carbon Dioxide 16 L 20 L 22 BUN 11 18 H 24 H Creatinine 0.71 0.64 0.67 Calcium 8.8 D 8.7 8.9 Liver Function 10/20/23 Range/Units 19:22 Total Bilirubin 0.2 (0.0-1.0) mg/dL AST 18 (5-37) U/L ALT 16 (0-40) U/L Alkaline Phosphatase 111 (39-117) U/L Albumin 3.9 (3.5-5.0) g/dL head CT revealed evidence of 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 He has multiple risk factors for seizures including previous craniotomy with right temporal encephalomalacia, alcohol and drug use, and severe hyponatremia. Despite his previous risks, he never had a seizure. This might have been triggered by hyponatremia. My recommendation is to slowly correct this and asked for an outpatient EEG in few days or a week after this is corrected. He should be advised to not drive and not be involve in any activity that could lead to any harm to him if he would have another seizure. Procedures Date of Service Date of Service: 10/21/23
--- NOTE | 2023-10-21 12:54 | PM.EVENT ---
Event Note Date of Service: 10/21/23 Event Note: Admitted this morning due to seizure and hyponatremia Patient awake alert complaining of headache, was unable to sleep due to noise. No recurrent seizure Examination Awake alert x3, nonfocal neuro examination, speech clear 32-year-old male with pertinent history of substance use disorder on Suboxone, chronic hyponatremia, TBI, hypothyroidism, mood disorder, gastroesophageal reflux disease who was brought to the emergency department for evaluation of seizure. #. 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 Collazo he recommend 30 g urea and 2 g sodium chloride tablet b.i.d. monitor electrolytes. TSH normal #. Seizure, new onset: No prior history of seizure on Depakote for behavioral issues Nephro feels seizure less likely due to sodium of 120. Status post IV Keppra loading dose, increase dose of Depakote to 500 b.i.d. Consulted Neurology. #. Mood disorder: On chlorpromazine,and clonazepam #. Hypothyroidism: Resume Synthroid #. Gastroesophageal reflux disease: On famotidine #. Opioid use disorder: On Suboxone DVT prophylaxis: Lovenox Full code will require two night minimum hospital stay for close monitoring of electrolytes (as above), which is not possible in a lesser acute setting. Specialist consult pending Time Spent With Patient Time: Total time managing care of this patient today ____ minutes.
[2023-10-21 13:31] VITALS: BP 114/62; PULSE 73; RESP 16; TEMP 36.5; O2SAT 96
[2023-10-21 15:13] VITALS: BMI 27.9
--- NOTE | 2023-10-21 19:41 | P.CONNP_ITS ---
History of Present Illness Reason for Consult Consult date: 10/21/23 Reason for consult: Hyponatremia Chief Complaint Chief complaint: Seizure History of Present Illness Narrative: 32-year-old male with history of substance use disorder on Suboxone, chronic hyponatremia, TBI, hypothyroidism, mood disorder, who was brought to the emergency department for evaluation of seizure. Patient was eating a burger at a restaurant and soon after his father noticed that he developed jerking movement of his upper extremities and subsequently his eyes rolled back and he was not answering questions. This lasted for about 1-1/2 minutes. Patient does not remember the episode. States he is compliant with his medications and fluid restriction for hyponatremia. No fever, chills, chest discomfort, palpitations, shortness of breath, abdominal pain, changes in urinary or bowel habits. In the emergency department, sodium was found to be 120. He was admitted for further management. Nephrology has been consulted to assist in his clinical management during his current hospital stay Review of Systems Review of Systems Yes all other systems are reviewed and are negative PMFSH Past Medical History Medical History Hyponatremia Hypothyroidism Opiate use Psychosis Impulse disorder TBI (traumatic brain injury) Social History Social History Household Members: Other Housing: Other Housing Other:: [facility] Do you presently have visiting nurse or other home services: No Patient Tobacco Use Status: Former Tobacco user service: No Meds Allergies Allergy/AdvReac Type Severity Reaction Status Date / Time No Known Allergies Allergy Verified 10/20/23 18:12 [No Known Allergies*] Active Medications: Current Medications Acetaminophen (Acetaminophen 325 Mg Tablet) 650 mg PO Q6H PRN PRN Reason: Pain, Mild (Pain Scale 1-3), fever or headache Last Admin: 10/21/23 12:06 Dose: 650 mg Buprenorphine/Naloxone (Buprenorphine/Naloxone 2/0.5mg Film) 1 film SUBLINGUAL DAILY [facility] Last Admin: 10/21/23 11:19 Dose: 1 film Calcium Carbonate (Calcium Carbonate 750 Mg Tab.Chew) 750 mg PO Q4H PRN PRN Reason: Heartburn Chlorpromazine HCl (Chlorpromazine Hcl 100 Mg Tablet) 100 mg PO BID [facility] Divalproex Sodium (Divalproex Sodium Er 500 Mg Tab.Er.24h) 500 mg PO BID [facility] Last Admin: 10/21/23 11:19 Dose: 500 mg Docusate Sodium (Docusate Sodium 100 Mg Capsule) 100 mg PO BID [facility] Enoxaparin Sodium (Enoxaparin Sodium 40 Mg/0.4 Ml Syringe) 40 mg SUBCUT Q24H [facility] Last Admin: 10/21/23 01:57 Dose: 40 mg Famotidine (Famotidine 20 Mg Tablet) 20 mg PO BID [facility] Folic Acid (Folic Acid 1 Mg Tablet) 1 mg PO DAILY [facility] Levothyroxine Sodium (Levothyroxine Sodium 75 Mcg Tablet) 75 mcg PO DAILY@0600 [facility] Last Admin: 10/21/23 11:19 Dose: 75 mcg Lorazepam (Lorazepam 2 Mg/Ml Vial) 2 mg IVPUSH Q2H PRN PRN Reason: Seizures Magnesium Hydroxide (Milk Of Magnesia 30 Ml Oral.Susp) 30 ml PO DAILY PRN PRN Reason: Constipation Melatonin (Melatonin 3 Mg Tablet) 6 mg PO BEDTIME PRN PRN Reason: Insomnia Multivitamins/Vitamin C (Multivitamin Tablet) 1 tab PO DAILY [facility] Ondansetron HCl (Ondansetron Hcl 4 Mg/2 Ml Vial) 4 mg IVPUSH Q8H PRN PRN Reason: Nausea and Vomiting Senna (Sennosides 8.6 Mg Tablet) 8.6 mg PO DAILY PRN PRN Reason: Constipation Sodium Chloride (0.9 % Sodium Chloride Flush 3 Ml Syringe) 3 ml IVFLUSH QSHIFT [facility] Last Admin: 10/21/23 15:33 Dose: 3 ml Sodium Chloride (Sodium Chloride Tab 1 Gm Tablet) 2 gm PO BID [facility] Last Admin: 10/21/23 12:06 Dose: 2 gm Thiamine HCl (Thiamine Hcl 100 Mg Tablet) 100 mg PO DAILY [facility] Urea (Urea 15 Gm Powder) 30 gm PO BID [facility] Last Admin: 10/21/23 12:07 Dose: 30 gm Home Medications ?Medication ?Instructions ?Recorded ?Confirmed ?Last Taken ?Type acetaminophen 650 mg 650 mg PO Q6H PRN Elevated Temp 08/05/23 10/20/23 Unknown History tablet,extended release bisoprolol fumarate 5 mg tablet 5 mg PO DAILY 08/05/23 10/20/23 Unknown History buprenorphine 2 mg-naloxone 0.5 mg 1 film sublingual DAILY 08/05/23 10/20/23 Unknown History sublingual film (Suboxone) chlorpromazine 100 mg tablet 100 mg PO BID 08/05/23 10/20/23 Unknown History clonazepam 0.5 mg tablet 0.5 mg PO BID 08/05/23 10/20/23 Unknown History divalproex 250 mg tablet,extended 250 mg PO BID 08/05/23 10/20/23 Unknown History release 24 hr (Depakote ER) docusate sodium 100 mg capsule 100 mg PO BID 08/05/23 10/20/23 Unknown History (Colace) famotidine 20 mg tablet 20 mg PO BID 08/05/23 10/20/23 Unknown History folic acid 1 mg tablet 1 mg PO DAILY 08/05/23 10/20/23 Unknown History lorazepam 2 mg/mL oral concentrate 1 mg PO Q5M PRN Seizures 08/05/23 10/20/23 Unknown History (Lorazepam Intensol) multivitamin 1 tab PO DAILY 08/05/23 10/20/23 Unknown History naloxone 0.4 mg/mL injection 0.4 mg subcut Q3M PRN Suspected OD 08/05/23 10/20/23 Unknown History solution sennosides 8.6 mg tablet (senna) 8.6 mg PO DAILY PRN Constipation 08/05/23 10/20/23 Unknown History sodium phosphates 19 gram-7 118 ml OR DAILY PRN If Bisacodyl 08/05/23 10/20/23 Unknown History gram/118 mL enema not effective thiamine HCl (vitamin B1) 100 mg 100 mg PO DAILY 08/05/23 10/20/23 Unknown History tablet levothyroxine 75 mcg capsule 75 mcg PO DAILY@0600 09/14/23 10/20/23 Unknown History sodium chloride 1,000 mg soluble 1,000 mg PO TID 09/14/23 10/20/23 Unknown History tablet Physical Exam Vital Signs: Last Vital Signs Temp 97.7 F 10/21/23 13:31 Pulse 73 10/21/23 13:31 Resp 16 10/21/23 13:31 BP 114/62 10/21/23 13:31 Pulse Ox 96 10/21/23 13:31 O2 Del Method Room Air 10/21/23 13:31 BMI result Body Mass Index 27.9 Const General: no acute distress Eyes EOM: EOMs intact bilaterally Neck Neck: Yes supple Resp Auscultation: diminished lung sounds Cardio Rate: regular rate GI Palpation (GI): Soft to palpation Neuro General: moves all extremities Results Lab Results 10/21/23 04:45 10/21/23 04:45 Lab results: Chemistry 10/20/23 10/20/23 10/21/23 19:22 23:14 04:45 Sodium 120 L* 120 L* 120 L* Potassium 3.6 4.0 4.0 Carbon Dioxide 16 L 20 L 22 BUN 11 18 H 24 H Creatinine 0.71 0.64 0.67 Calcium 8.8 D 8.7 8.9 Hematology 10/20/23 10/21/23 19:22 04:45 WBC 6.9 6.0 Hgb 12.0 L 13.0 L Plt Count 243 241 Urine Studies 10/20/23 22:20 Urine Osmolality 717 Assessment and Plan (1) Hyponatremia: Status: Acute Plan Hyponatremia due to excess ADH TSH/Cortisol/Urine Na/Urine Osm reviewed Increased PO NaCl to 2 Gram bid Started PO Urea. Shall monitor Na closely Procedures Date of Service Date of Service: 10/21/23
[2023-10-21 19:54] VITALS: BP 123/68; PULSE 82; RESP 18; TEMP 37.1; O2SAT 99
[2023-10-21] MEDS: Famotidine 20 MG TABLET PO (21:03)
[2023-10-21] MEDS: Docusate Sodium 100 MG CAPSULE PO (21:03)
[2023-10-21] MEDS: Melatonin 3 MG TABLET 6 MG PO (21:03)
[2023-10-21 23:00] VITALS: BP 148/62; PULSE 95; RESP 18; TEMP 36.9; O2SAT 98
[2023-10-22 08:00] VITALS: BP 153/85; PULSE 100; RESP 17; TEMP 36.8; O2SAT 100
[2023-10-22 08:01] LABS: Anion Gap 10 (12-20); Blood Urea Nitrogen 23 mg/dL (9-16); Calcium 9.4 mg/dL (8.4-10.2); Carbon Dioxide 23 mmol/L (22-29); Chloride 96 mmol/L (96-108); Creatinine Clr Calc Pharmacy 154.6; Estimated Glomerular Filt Rate > 60; Glucose Random 100 mg/dL (60-115); Potassium 4.1 mmol/L (3.3-5.1); Sodium 125 mmol/L (135-145)
[2023-10-22] MEDS: Folic Acid 1 MG TABLET PO (08:57)
[2023-10-22] MEDS: Sodium Chloride Tab 1 GM TABLET 2 GM PO ×2 (08:57→20:01)
[2023-10-22] MEDS: chlorproMAZINE HCl 100 MG TABLET PO ×2 (08:57→20:00)
[2023-10-22] MEDS: Divalproex Sodium ER 500 MG TAB.ER.24H PO ×2 (08:57→20:01)
[2023-10-22] MEDS: Buprenorphine/Naloxone 2/0.5mg FILM 1 FILM SUBLINGUAL (08:58)
[2023-10-22] MEDS: Famotidine 20 MG TABLET PO ×2 (08:58→20:01)
[2023-10-22] MEDS: Docusate Sodium 100 MG CAPSULE PO ×2 (08:58→20:01)
[2023-10-22] MEDS: Thiamine HCL 100 MG TABLET PO (08:58)
[2023-10-22] MEDS: Urea 15 GM POWDER 30 GM PO ×2 (08:58→20:00)
[2023-10-22] MEDS: Multivitamin TABLET 1 TAB PO (08:58)
[2023-10-22] MEDS: 0.9 % Sodium Chloride Flush 3 ML SYRINGE IVFLUSH ×2 (09:01→20:04)
[2023-10-22 12:00] VITALS: BP 111/65; PULSE 125; RESP 20; TEMP 36.7; O2SAT 100
--- NOTE | 2023-10-22 12:07 | HO.PM.IMPN ---
Subjective Subjective Date of Service: 10/22/23 Interval History: Being followed for seizure and hyponatremia. Patient offers no acute complaints of headache, no dizziness, no lightheadedness, no fevers, no chills, no recurrent seizure episodes noted, patient has slept well last night, frustrated this morning since being woken up several times for vitals, lab draws and for checkups. Review of Systems All other system reviewed and negative. Physical Exam Vital Signs: Vital Signs: Last Vital Signs Temp 98.3 F 10/22/23 08:00 Pulse 100 10/22/23 08:00 Resp 17 10/22/23 08:00 BP 153/85 H 10/22/23 08:00 Pulse Ox 100 10/22/23 08:00 O2 Del Method Room Air 10/22/23 08:00 BMI result Body Mass Index 27.9 Const: Other: General awake alert x3, in no acute distress. Neck no JVD. Anicteric sclera CVS regular rate rhythm, Respiratory lungs clear to auscultation, no respiratory distress, no wheeze, no rhonchi. Gastrointestinal abdomen soft, nontender, bowel sounds audible Extremities no edema. Neuro non focal Skin no rash Appropriate affect Objective Data Active Medications Acetaminophen (Acetaminophen 325 Mg Tablet) 650 mg PO Q6H PRN PRN Reason: Pain, Mild (Pain Scale 1-3), fever or headache Last Admin: 10/21/23 12:06 Dose: 650 mg Documented By: CHARLEY Buprenorphine/Naloxone (Buprenorphine/Naloxone 2/0.5mg Film) 1 film SUBLINGUAL DAILY [facility] Last Admin: 10/22/23 08:58 Dose: 1 film Documented By: SU Calcium Carbonate (Calcium Carbonate 750 Mg Tab.Chew) 750 mg PO Q4H PRN PRN Reason: Heartburn Chlorpromazine HCl (Chlorpromazine Hcl 100 Mg Tablet) 100 mg PO BID [facility] Last Admin: 10/22/23 08:57 Dose: 100 mg Documented By: SU Divalproex Sodium (Divalproex Sodium Er 500 Mg Tab.Er.24h) 500 mg PO BID [facility] Last Admin: 10/22/23 08:57 Dose: 500 mg Documented By: SU Docusate Sodium (Docusate Sodium 100 Mg Capsule) 100 mg PO BID [facility] Last Admin: 10/22/23 08:58 Dose: 100 mg Documented By: SU Enoxaparin Sodium (Enoxaparin Sodium 40 Mg/0.4 Ml Syringe) 40 mg SUBCUT Q24H [facility] Last Admin: 10/22/23 01:00 Dose: Not Given Documented By: MARYBETH Non-Admin Reason: Patient Refused Famotidine (Famotidine 20 Mg Tablet) 20 mg PO BID [facility] Last Admin: 10/22/23 08:58 Dose: 20 mg Documented By: SU Folic Acid (Folic Acid 1 Mg Tablet) 1 mg PO DAILY [facility] Last Admin: 10/22/23 08:57 Dose: 1 mg Documented By: SU Levothyroxine Sodium (Levothyroxine Sodium 75 Mcg Tablet) 75 mcg PO DAILY@0600 [facility] Last Admin: 10/21/23 11:19 Dose: 75 mcg Documented By: MATHIEU Lorazepam (Lorazepam 2 Mg/Ml Vial) 2 mg IVPUSH Q2H PRN PRN Reason: Seizures Magnesium Hydroxide (Milk Of Magnesia 30 Ml Oral.Susp) 30 ml PO DAILY PRN PRN Reason: Constipation Melatonin (Melatonin 3 Mg Tablet) 6 mg PO BEDTIME PRN PRN Reason: Insomnia Last Admin: 10/21/23 21:03 Dose: 6 mg Documented By: MARYBETH Multivitamins/Vitamin C (Multivitamin Tablet) 1 tab PO DAILY [facility] Last Admin: 10/22/23 08:58 Dose: 1 tab Documented By: SU Ondansetron HCl (Ondansetron Hcl 4 Mg/2 Ml Vial) 4 mg IVPUSH Q8H PRN PRN Reason: Nausea and Vomiting Senna (Sennosides 8.6 Mg Tablet) 8.6 mg PO DAILY PRN PRN Reason: Constipation Sodium Chloride (0.9 % Sodium Chloride Flush 3 Ml Syringe) 3 ml IVFLUSH QSHIFT [facility] Last Admin: 10/22/23 09:01 Dose: 3 ml Documented By: SU Sodium Chloride (Sodium Chloride Tab 1 Gm Tablet) 2 gm PO BID [facility] Last Admin: 10/22/23 08:57 Dose: 2 gm Documented By: SU Thiamine HCl (Thiamine Hcl 100 Mg Tablet) 100 mg PO DAILY [facility] Last Admin: 10/22/23 08:58 Dose: 100 mg Documented By: HO.RUANES Urea (Urea 15 Gm Powder) 30 gm PO BID [facility] Last Admin: 10/22/23 08:58 Dose: 30 gm Documented By: SU Labs 10/21/23 04:45 10/22/23 06:03 Labs: Laboratory Results - last 24 hr 10/22/23 06:03 Hold Purple Top SEE NOTE Anion Gap 10 L Estim Creat Clear Calc 154.6 Estimated GFR > 60 Random Glucose 100 Calcium 9.4 Assessment and Plan (1) New onset seizure: Status: Acute (2) Hyponatremia: Status: Acute Plan 32-year-old male with pertinent history of substance use disorder on Suboxone, chronic hyponatremia, TBI, hypothyroidism, mood disorder, gastroesophageal reflux disease who was brought to the emergency department for evaluation of seizure. #. 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 Collazo he recommend to continue 30 g urea and 2 g sodium chloride tablet b.i.d. monitor electrolytes. TSH normal #. Seizure, new onset: No prior history of seizure on Depakote for behavioral issues Status post IV Keppra loading dose, increase dose of Depakote to 500 b.i.d. Seen by Neurology they felt patient has multiple risk factors for seizures including previous craniotomy with right temporal encephalomalacia, alcohol and drug use, and severe hyponatremia. Despite his previous risks, he never had a seizure, question seizure triggered by hyponatremia Neuro recommend outpatient EEG in few days or a week after hyponatremia corrected, they recommended patient not to drive and not to operate machinery. #. Mood disorder: On chlorpromazine,and clonazepam #. Hypothyroidism: Continue Synthroid #. Gastroesophageal reflux disease: On famotidine #. Opioid use disorder: On Suboxone DVT prophylaxis: Lovenox Full code will require continued inpatient hospitalization for close monitoring of electrolytes and to rule out recurrent seizures Quality Stroke Does the patient have a stroke diagnosis?: No VTE Prior VTE?: No VTE Risk Level:: Medical - moderate - high VTE Device Contraindication: Treatment Not Indicated VTE Drug Contraindication: N/A - Med Ordered
[2023-10-22] MEDS: Acetaminophen 325 MG TABLET 650 MG PO ×2 (13:14→20:01)
[2023-10-22 15:25] VITALS: BP 111/62; PULSE 116; RESP 18; TEMP 36.3; O2SAT 97
[2023-10-22 18:51] VITALS: BP 129/66; PULSE 102; RESP 18; TEMP 37.2; O2SAT 96
--- NOTE | 2023-10-22 19:50 | P.PNNP_ITS ---
Subjective Subjective Date of Service: 10/22/23 Interval history: Being followed for hyponatremia.Patient offers no acute complaints of headache, no dizziness, no lightheadedness, no fevers, no chills Physical Exam 2 Vital Signs: Vital Signs: Last Vital Signs Temp 99.0 F 10/22/23 18:51 Pulse 102 H 10/22/23 18:51 Resp 18 10/22/23 18:51 BP 129/66 10/22/23 18:51 Pulse Ox 96 10/22/23 18:51 O2 Del Method Room Air 10/22/23 18:51 BMI result Body Mass Index 27.9 Const: General: no acute distress Eyes: EOM: EOMs intact bilaterally Neck: Neck: Yes supple Resp: Auscultation: diminished lung sounds Cardio: Rate: regular rate GI: Palpation (GI): Soft to palpation Neuro: General: moves all extremities Objective Data Labs 10/21/23 04:45 10/22/23 06:03 Labs: Laboratory Results - last 24 hr 10/22/23 06:03 Hold Purple Top SEE NOTE Sodium 125 L Potassium 4.1 Chloride 96 Carbon Dioxide 23 Anion Gap 10 L BUN 23 H Creatinine 0.73 Estim Creat Clear Calc 154.6 Estimated GFR > 60 Random Glucose 100 Calcium 9.4 Procedures Date of Service Date of Service: 10/22/23 Assessment & Plan Assessment and plan (1) Hyponatremia: Status: Acute Plan Hyponatremia due to excess ADH TSH/Cortisol/Urine Na/Urine Osm reviewed C/W PO NaCl to 2 Gram bid C/W PO Urea. Na correction appropriate Shall monitor Na closely; Fluid restriction for now Progress Note: Quality Stroke Does the patient have a stroke diagnosis?: No
[2023-10-22] MEDS: Melatonin 3 MG TABLET 6 MG PO (20:01)
[2023-10-22 23:12] VITALS: BP 145/73; PULSE 105; RESP 18; TEMP 36.7; O2SAT 96
[2023-10-23 04:00] VITALS: BP 123/70; PULSE 119; RESP 18; TEMP 36.2; O2SAT 98
[2023-10-23] MEDS: Levothyroxine Sodium 75 MCG TABLET PO (05:59)
[2023-10-23 06:44] LABS: Anion Gap 15 (12-20); Blood Urea Nitrogen 22 mg/dL (9-16); Calcium 9.7 mg/dL (8.4-10.2); Carbon Dioxide 22 mmol/L (22-29); Chloride 102 mmol/L (96-108); Creatinine Clr Calc Pharmacy 148.5; Estimated Glomerular Filt Rate > 60; Glucose Random 106 mg/dL (60-115); Potassium 4.2 mmol/L (3.3-5.1); Sodium 135 mmol/L (135-145)
[2023-10-23 08:00] VITALS: BP 128/77; PULSE 103; RESP 16; TEMP 36.1; O2SAT 97
[2023-10-23] MEDS: Famotidine 20 MG TABLET PO (08:06)
[2023-10-23] MEDS: Folic Acid 1 MG TABLET PO (08:07)
[2023-10-23] MEDS: Buprenorphine/Naloxone 2/0.5mg FILM 1 FILM SUBLINGUAL (08:07)
[2023-10-23] MEDS: Docusate Sodium 100 MG CAPSULE PO (08:07)
[2023-10-23] MEDS: Sodium Chloride Tab 1 GM TABLET 2 GM PO (08:07)
[2023-10-23] MEDS: chlorproMAZINE HCl 100 MG TABLET PO (08:07)
[2023-10-23] MEDS: Multivitamin TABLET 1 TAB PO (08:07)
[2023-10-23] MEDS: Urea 15 GM POWDER 30 GM PO (08:07)
[2023-10-23] MEDS: Divalproex Sodium ER 500 MG TAB.ER.24H PO (08:07)
[2023-10-23] MEDS: Thiamine HCL 100 MG TABLET PO (08:07)
[2023-10-23] MEDS: 0.9 % Sodium Chloride Flush 3 ML SYRINGE IVFLUSH (08:07)
[2023-10-23] MEDS: Acetaminophen 325 MG TABLET 650 MG PO (08:13)
--- NOTE | 2023-10-23 09:34 | P.PNNP_ITS ---
Subjective Subjective Date of Service: 10/23/23 Interval history: Being followed for hyponatremia.Patient offers no acute complaints of headache, no dizziness, no lightheadedness, no fevers, no chills Physical Exam 2 Vital Signs: Vital Signs: Last Vital Signs Temp 97 F 10/23/23 08:00 Pulse 103 H 10/23/23 08:00 Resp 16 10/23/23 08:00 BP 128/77 10/23/23 08:00 Pulse Ox 97 10/23/23 08:00 O2 Del Method Room Air 10/23/23 08:00 BMI result Body Mass Index 27.9 Const: General: no acute distress HEENT: Head: Yes normocephalic Eyes: EOM: EOMs intact bilaterally Neck: Neck: Yes supple Resp: Auscultation: diminished lung sounds Cardio: Rate: regular rate GI: Palpation (GI): Soft to palpation Neuro: General: moves all extremities Objective Data Labs 10/21/23 04:45 10/23/23 05:57 Labs: Laboratory Results - last 24 hr 10/23/23 05:57 Sodium 135 Potassium 4.2 Chloride 102 Carbon Dioxide 22 Anion Gap 15 BUN 22 H Creatinine 0.76 Estim Creat Clear Calc 148.5 Estimated GFR > 60 Random Glucose 106 Calcium 9.7 Procedures Date of Service Date of Service: 10/23/23 Assessment & Plan Assessment and plan (1) Hyponatremia: Status: Acute Plan Hyponatremia due to excess ADH TSH/Cortisol/Urine Na/Urine Osm reviewed C/W PO NaCl to 1 Gram bid; Check lytes in one week If Na drops in the next labs, increase PO NaCl to 2 Gm bid No indication to continue PO Urea for now Fluid restriction for now 48 oz/ 24 hours Needs outpatient follow up [place] [facility] [place] Progress Note: Quality Stroke Does the patient have a stroke diagnosis?: No
--- NOTE | 2023-10-23 10:25 | MHC.CM.PN ---
Addendum entered by Maryanne Robledo 10/23/23 11:10: Per family/guardian request, [facility] will pick the pt up today instead of transporting back via BLS. Pts guardian Carlito called and is aware of pt discharging today. Original Note: Pt is medically cleared for discharge back to [facility] [place] today via BLS/[facility].
--- NOTE | 2023-10-23 11:14 | PM.DS ---
DS: Providers Provider Date of Service: 10/23/23 Date of admission: 10/21/23 00:06 Date of discharge: 10/23/23 Primary care physician: Niraj Jarquin DO Consults: 10/21/23 00:06 Consult to Nephrology Routine Consulting Provider: [facility] Reason for consultation: hyponatremia Consult to Neurology Routine Consulting Provider: [facility] Reason for consultation: seizures DS: Diagnosis Discharge Diagnosis (1) Hyponatremia: Status: Acute DS: Summary Hospital Course Hospital Course: History of presenting illness: Date of Service: 10/21/23 Chief Complaint: Seizure This is a 32-year-old male with pertinent history of substance use disorder on Suboxone, chronic hyponatremia, TBI, hypothyroidism, mood disorder, gastroesophageal reflux disease who was brought to the emergency department for evaluation of seizure. Patient was eating a burger at a restaurant and soon after his father noticed that he developed jerking movement of his upper extremities and subsequently his eyes rolled back and he was not answering questions. This lasted for about 1-1/2 minutes. Patient does not remember the episode. States he never has had a seizure before. Following the episode, patient was fatigued and drowsy. States he is compliant with his medications and fluid restriction for hyponatremia. No fever, chills, chest discomfort, palpitations, shortness of breath, abdominal pain, changes in urinary or bowel habits. In the emergency department, sodium was found to be 120. Critical care team consulted and patient deemed to be stable to be admitted on medicine floor. Hospital course: 32-year-old male with pertinent history of substance use disorder on Suboxone, chronic hyponatremia, TBI, hypothyroidism, mood disorder, gastroesophageal reflux disease brought to the emergency department for evaluation of seizure, with a prior history of seizure with a serum sodium of 117 and noted to have hyponatremia serum sodium 120 at admission, patient admitted to medical floor and was treated with 30 g of urea and 2 g of sodium chloride tablet twice daily, sodium gradually improved to 135,he was followed closely by Nephrology workup showed normal TSH and cortisol and after reviewing urine sodium, urine osmolality, manager infrastructure felt patient hyponatremia is due to excess ADH, they recommend 48 oz of fluid restriction in 24 hours and recommend 1 g of sodium chloride twice daily, advised to recheck electrolytes in 1 week ,if noted to have drop in sodium, then increase dose of sodium chloride tablets 2 g b.i.d., in regard to seizures it was reviewed that patient has no prior history of seizure, and he was on Depakote for behavioral issues, in the ED patient treated with IV Keppra loading dose he was seen by Neurology , and it was felt that patient has multiple risk factors for seizures, including previous craniotomy with right temporal encephalomalacia, alcohol and drug use and severe hyponatremia, therefore Neurology recommend an EEG as an outpatient once sodium level remains normal, it was felt less likely that seizure was due to serum sodium of 120. In regard to Mood disorder recommend to continue all home medications. Hypothyroidism: Continue Synthroid. Gastroesophageal reflux disease continue famotidine. Opioid use disorder continue Suboxone. Time Attestation Discharge Coordination Time (in mins): 36 Quality: Safe Use of Opioids Does Pt have an Active Cancer Diagnosis on the Problem List?: No Quality: Stroke Does the patient have a stroke diagnosis?: No Physical Exam Vital Signs: Vital Signs: Last Vital Signs Temp 97 F 10/23/23 08:00 Pulse 103 H 10/23/23 08:00 Resp 16 10/23/23 08:00 BP 128/77 10/23/23 08:00 Pulse Ox 97 10/23/23 08:00 O2 Del Method Room Air 10/23/23 08:00 BMI result Body Mass Index 27.9 Const: Other: General awake alert x3, in no acute distress. Neck no JVD. Anicteric sclera CVS regular rate rhythm, Respiratory lungs clear to auscultation, no respiratory distress, no wheeze, no rhonchi. Gastrointestinal abdomen soft, non tender, bowel sounds audible Extremities no edema. Neuro non focal Skin no rash Appropriate affect DS: Data Data Completed and Pending Labs on day of discharge: Laboratory Results - last 24 hr 10/23/23 05:57 Sodium 135 Potassium 4.2 Chloride 102 Carbon Dioxide 22 Anion Gap 15 BUN 22 H Creatinine 0.76 Estim Creat Clear Calc 148.5 Estimated GFR > 60 Random Glucose 106 Calcium 9.7 Discharge Plan Discharge Anticipated Discharge Date/Time: 10/23/23 10:23 Patient Disposition: Xfer SNF Discharge Diagnosis: Hyponatremia New onset seizure Referrals: [facility] [Outside] - 1 Week Niraj Jarquin DO [Primary Care Provider] - 1 Week Discharge Medications: Continued acetaminophen 650 mg Tablet Extended Release 650 mg PO Q6H PRN (Reason: Elevated Temp) bisoprolol fumarate 5 mg Tablet 5 mg PO DAILY lorazepam [Lorazepam Intensol] 2 mg/mL Concentrate 1 mg PO Q5M PRN (Reason: Seizures) multivitamin Tablet 1 tab PO DAILY sennosides [senna] 8.6 mg Tablet 8.6 mg PO DAILY PRN (Reason: Constipation) chlorpromazine 100 mg Tablet 100 mg PO BID naloxone 0.4 mg/mL Solution 0.4 mg SUBCUT Q3M PRN (Reason: Suspected OD) Rx Instructions: NTExceed 10 mg total dose/episode clonazepam 0.5 mg Tablet 0.5 mg PO BID thiamine HCl (vitamin B1) 100 mg Tablet 100 mg PO DAILY famotidine 20 mg Tablet 20 mg PO BID sodium phosphates 19-7 gram/118 mL Enema 118 ml MN DAILY PRN (Reason: If Bisacodyl not effective) Rx Instructions: only if Bisacodyl supp. is ineffective docusate sodium [Colace] 100 mg Capsule 100 mg PO BID folic acid 1 mg Tablet 1 mg PO DAILY divalproex [Depakote ER] 250 mg Tablet Extended Release 24 Hr 250 mg PO BID buprenorphine-naloxone [Suboxone] 2-0.5 mg Film 1 film sublingual DAILY Rx Instructions: place 1 strip/tab under (each) side of tongue levothyroxine 75 mcg capsule 75 mcg PO DAILY@0600 Changed sodium chloride 1,000 mg tablet,soluble 1,000 mg PO BID Qty: 10 0RF Discharge Orders: Discharge Order (Routine); Ordered 10/23/23 Ordered By: Millicent Shaffer Diet: Advance to usual diet Activity on Discharge: As tolerated Stand Alone Forms: Patient Portal Discharge page Print Language: Bulgarian Care Plan Goals: CHECK LYTES IN 1 WEEK RESTRICT 48 OZ OF WATER/IN 24 HOURS. TAKE SODIUM CHLORIDE 1000 MG TABLET TWICE DAILY EEG EARLY NEXT WEEK Health Concerns: Continue all home medications as before Plan of Treatment: Outpatient follow-up with primary care physician, PCP to arrange for outpatient EEG next week Assessment: As above
[2023-10-23 11:59] VITALS: BP 123/67; PULSE 128; RESP 20; TEMP 36.4; O2SAT 96
== END 2023-10-23 12:55 | disposition skilled nursing facility (03) | DRG 53 ==
LOC: HO.ED 21:19 → HO.EDOVER 10-21 00:10 → HO.IMC 10-21 13:39
PROVIDERS: Physician Assistant Medical; Admitting Provider Student in an Organized Health Care Education/Training Program; Emergency Provider Emergency Medicine; PCP Hospitalist; Visit Provider Hospitalist
DX: R56.9 Unspecified convulsions (principal); E22.2 Syndrome of inappropriate secretion of antidiuretic hormone; E03.9 Hypothyroidism, unspecified; F11.20 Opioid dependence, uncomplicated; K21.9 Gastro-esophageal reflux disease without esophagitis; F39 Unspecified mood [affective] disorder; Z87.820 Personal history of traumatic brain injury; Z79.890 Hormone replacement therapy; Z79.899 Other long term (current) drug therapy
CPT/HCPCS: 36415; 70450; 80048; 80053; 80164; 80307; 82533; 83735; 83935; 84300; 84443; 85025; 99285; J1650; J1953

== ENCOUNTER → 2023-10-21 00:06 | Outpatient (BNV) | payer MEDICAID, SELFPAY | PROVIDERS: Admitting Provider Student in an Organized Health Care Education/Training Program; Emergency Provider Emergency Medicine; PCP Hospitalist; Visit Provider Psychiatry & Neurology Neurology | DX: R56.9 Unspecified convulsions (principal) | CPT/HCPCS: 99222 ==

== ENCOUNTER → 2023-10-21 00:06 | Outpatient (BNV) | payer MEDICAID, SELFPAY | PROVIDERS: Admitting Provider Student in an Organized Health Care Education/Training Program; Emergency Provider Emergency Medicine; PCP Hospitalist; Visit Provider Internal Medicine Nephrology | DX: E87.1 Hypo-osmolality and hyponatremia (principal) | CPT/HCPCS: 99222; 99232 ==

== ENCOUNTER → 2023-10-21 00:06 | Outpatient (BNV) | payer MEDICAID, SELFPAY | PROVIDERS: Admitting Provider Student in an Organized Health Care Education/Training Program; Emergency Provider Emergency Medicine; PCP Hospitalist; Visit Provider Student in an Organized Health Care Education/Training Program | DX: R56.9 Unspecified convulsions (principal); E87.1 Hypo-osmolality and hyponatremia | CPT/HCPCS: 99223; 99232; 99239; 99499 ==

== ENCOUNTER 2023-10-28 07:56 | Outpatient (REF) | payer MEDICAID, SELFPAY ==
--- NOTE | 2023-10-28 08:10 | EEG_ITS ---
FINDINGS: Waking background activity consists of a diffuse, 6 to 7 hertz moderate voltage theta, rarely getting up to 8 hertz posteriorly, intermixed with some intermittent slower and sharp configuration predominantly from left temporal region. Photic stimulation is without activation. Hyperventilation was omitted. IMPRESSION: This is an abnormal EEG due to diffuse background slowing and more focal localized slowing in the left temporal region. This EEG correlates with a diffuse encephalopathic process with proximal structural abnormality in the left temporal region. No clearly epileptiform discharges are seen. MD ARA Vazquez/BRUNO / [phone]
== END 2023-10-28 07:57 | disposition home or self-care (01) ==
LOC: HO.NEURO 07:56
PROVIDERS: PCP Hospitalist; Visit Provider Hospitalist
DX: G40.89 Other seizures (principal)
CPT/HCPCS: 95816

== ENCOUNTER 2023-11-10 13:16 | Outpatient (REF) | payer MEDICAID, SELFPAY ==
[2023-11-10 16:12] LABS: Valproate 19.5 mcg/mL (50.0-100.0)
== END 2023-11-10 13:17 | disposition home or self-care (01) ==
LOC: HO.LAB 13:16
PROVIDERS: Visit Provider Psychiatry & Neurology Neurology
DX: S06.9X9A Unspecified intracranial injury with loss of consciousness of unspecified duration, initial encounter (principal)
CPT/HCPCS: 36415; 80164

== ENCOUNTER 2024-07-07 07:48 | Inpatient (IN) | payer MEDICAID, SELFPAY ==
[2024-07-07] VITALS (12 sets, daily range): BP systolic 106–158; BP diastolic 72–102; PULSE 81–100; RESP 15–21; TEMP 36.2–36.8; O2SAT 95–98; BMI 27.7; BMI 27.9
--- NOTE | 2024-07-07 07:50 | ECG_ITS ---
Test Reason : withdrawls Blood Pressure : */* mmHG Vent. Rate : 100 BPM Atrial Rate : 100 BPM P-R Int : 170 ms QRS Dur : 76 ms QT Int : 350 ms P-R-T Axes : 37 37 23 degrees QTcB Int : 451 ms Normal sinus rhythm Normal ECG No previous ECGs available Referred By: Kathie Lyman Electronically Signed By: CORDELL LOUIS MD
--- NOTE | 2024-07-07 07:55 | ED_ITS ---
HPI - Alcohol General Chief Complaint: ETOH/Substance Use Stated Complaint: ETOH WITHDRAWAL,DIZZY,NAUSEA PER EMS Source: patient, EMS and old records reviewed Mode of arrival: EMS Limitations: no limitations History of Present Illness ED Provider: JUSTUS HPI narrative: 33 yo male with PMH of TBI, hypothyroidism, mood disorder, ETOH abuse who admits to recent binge for the past couple of weeks 20+ nips a day. His last drink was yesterday. He denies SI, trauma or falls. He notes yesterday he had n/v and did notice some brb streaks in it. He has no abdominal pain. He thinks his stools are black as well. He is taking all of his medications. He notes 3 months ago they took him off his depakote. No fevers, chest pain, dyspnea, cough. MD complaint: alcohol withdrawal Last drink: Days (ago) (1) Chronic alcohol use: Yes Previous visits for alcohol intoxication: Yes Recent trauma: No Associated symptoms: nausea and hematemesis Treatments prior to arrival: none Related Data Home Medications ?Medication ?Instructions ?Recorded ?Confirmed acetaminophen 650 mg 650 mg PO Q6H PRN Elevated Temp 08/05/23 10/20/23 tablet,extended release bisoprolol fumarate 5 mg tablet 5 mg PO DAILY 08/05/23 10/20/23 buprenorphine 2 mg-naloxone 0.5 mg 1 film sublingual DAILY 08/05/23 10/20/23 sublingual film (Suboxone) chlorpromazine 100 mg tablet 100 mg PO BID 08/05/23 10/20/23 clonazepam 0.5 mg tablet 0.5 mg PO BID 08/05/23 10/20/23 divalproex 250 mg tablet,extended 250 mg PO BID 08/05/23 10/20/23 release 24 hr (Depakote ER) docusate sodium 100 mg capsule 100 mg PO BID 08/05/23 10/20/23 (Colace) famotidine 20 mg tablet 20 mg PO BID 08/05/23 10/20/23 folic acid 1 mg tablet 1 mg PO DAILY 08/05/23 10/20/23 lorazepam 2 mg/mL oral concentrate 1 mg PO Q5M PRN Seizures 08/05/23 10/20/23 (Lorazepam Intensol) multivitamin 1 tab PO DAILY 08/05/23 10/20/23 naloxone 0.4 mg/mL injection 0.4 mg subcut Q3M PRN Suspected OD 08/05/23 10/20/23 solution sennosides 8.6 mg tablet (senna) 8.6 mg PO DAILY PRN Constipation 08/05/23 10/20/23 sodium phosphates 19 gram-7 118 ml NE DAILY PRN If Bisacodyl 08/05/23 10/20/23 gram/118 mL enema not effective thiamine HCl (vitamin B1) 100 mg 100 mg PO DAILY 08/05/23 10/20/23 tablet levothyroxine 75 mcg capsule 75 mcg PO DAILY@0600 09/14/23 10/20/23 Previous Rx's ?Medication ?Instructions ?Recorded sodium chloride 1,000 mg soluble 1,000 mg PO BID #10 tabs 10/23/23 tablet Allergies Allergy/AdvReac Type Severity Reaction Status Date / Time No Known Allergies Allergy Verified 07/07/24 07:56 [No Known Allergies*] Review of Systems 2 Review of Systems: Constitutional : No Weight loss, No Fever, No Chills ENT/Mouth : No sore throat, No Rhinorrhea Eyes: No Swelling, No Redness Cardiovascular : No Chest Pain, No SOB, No Edema Respiratory : No Cough, No Sputum, No Wheezing Gastrointestinal : Positive Nausea, Positive Vomiting, no Diarrhea, no abdominal Pain, No Hematochezia, No Melena Genitourinary : No Dysuria, No Urinary Frequency, No Hematuria, No Urgency Musculoskeletal : No joint pain, No Myalgias, No Joint Swelling Skin : No Skin Lesions, No rash Neuro : No Weakness, No Numbness, No Dizziness, No Headache Psych : pos Anxiety/Panic, No Depression All other systems reviewed and are negative. [facility] Past Medical History Attestation statement: The following information was validated with the patient. Source: old records reviewed Medical History Hyponatremia Hypothyroidism Opiate use Psychosis Impulse disorder TBI (traumatic brain injury) Social History Social History Household Members: Other Housing: Other Housing Other:: [facility] Do you presently have visiting nurse or other home services: No Patient Tobacco Use Status: Former Tobacco user Advance Directives: No Advance Directives Information Provided: Yes Do you have a plan to hurt others: No Plan service: No Physical Exam ED Vital Signs: Vital Signs - 24 hr 07/07/24 07:54 Temperature 97.9 F Pulse Rate 100 Respiratory Rate 20 Blood Pressure 135/93 H Pulse Oximetry 96 Oxygen Delivery Method Room Air BMI result Body Mass Index 27.7 Appearance: Alert. Oriented X3. No acute distress. Eyes: Pupils equal, round and reactive to light. ENT: Pharynx dry MM. tongue fasciculations, atraumatic Neck: Normal inspection. Neck supple. CVS: Normal heart rate and rhythm. Pulses normal. Respiratory: No respiratory distress. Breath sounds normal. Abdomen: Soft and nontender. Skin: Skin warm and dry. Normal skin color. Normal skin turgor. Extremities: No lower extremity edema. No calf ttp Neuro: Oriented X 3. No motor deficit. No sensory deficit. CN2-12 intact. bilateral tremors mild Medical Decision Making Medical Decision Making [facility] Narrative: 33 yo male with PMH of TBI, hypothyroidism, mood disorder, ETOH abuse here with n/v and reports some hematemesis no known varices at this time. He has tongue fasciculations and tremors - I have ordered IV valium, magnesium, thiamina, IVF and start on phenobarb protocol. Will monitor his CBC given his reported hematemesis and dose with IV protonix. Possible lyte abnormality given his hx of hypoNatremia, ETOH use disorder, withdrawal. Differential Diagnosis Differential Diagnoses: The differential diagnosis associated with the presentation includes lyte abnormality, alcohol use disorder, alcohol intoxication Admission/Observation Consideration of admission/observation: Escalation of care including admission/observation considered admit for ETOH withdrawal s/p 2 doses of IV valium Consult Healthcare Provider Management of the patient was discussed with: Hospitalist (will admit) Lab Data [facility] Lab Attestation statement: I reviewed the patient's lab results. 07/07/24 08:18 07/07/24 08:18 Labs: Lab Results 07/07/24 Range/Units 08:18 WBC 5.9 (4.8-10.8) X10*3/uL RBC 5.16 (4.60-5.80) X10*6/uL Hgb 16.3 D (14.0-18.0) g/dl Hct 43.8 D (42.0-52.0) % MCV 84.9 (80.0-98.0) fL MCH 31.6 (27.0-33.0) pg MCHC 37.2 H (31.0-36.0) g/dl RDW 11.9 (11.0-16.0) % Plt Count 219 (160-400) X10*3/uL MPV 10.0 (9.4-12.4) fL Immature Gran % (Auto) 0.5 H (0.0-0.4) % Neut % (Auto) 47.7 (45-73) % Lymph % (Auto) 44.9 H (20-40) % [place] % (Auto) 6.1 (2-11) % Eos % (Auto) 0.3 (0-4) % Baso % (Auto) 0.5 (0-2) % Lymph # (Auto) 2.7 (1.2-4.9) X10*3/uL [place] # (Auto) 0.4 (0.1-1.2) X10*3/uL Eos # (Auto) 0.0 (0.0-0.4) X10*3/uL Baso # (Auto) 0.0 (0.0-0.2) X10*3/uL Abs Immat Gran (auto) 0.03 (0.00-0.03) X10*3/uL Absolute Neuts (auto) 2.8 (2.0-8.3) x10*3/uL Absolute Nucleated RBC 0.000 (0.0-0.012) X10*3/uL Nucleated RBC % (auto) 0.0 (0.0-0.2) /100WBC Sodium 144 (135-145) mmol/L Potassium 3.6 (3.3-5.1) mmol/L Chloride 107 (96-108) mmol/L Carbon Dioxide 25 (22-29) mmol/L Anion Gap 16 (12-20) BUN 15 (9-16) mg/dL Creatinine 0.77 (0.5-1.4) mg/dL Estim Creat Clear Calc 138.2 Estimated GFR > 60 Random Glucose 121 H (60-115) mg/dL Calcium 9.0 D (8.4-10.2) mg/dL Magnesium 1.9 (1.6-2.6) mg/dL Total Bilirubin 0.9 (0.0-1.0) mg/dL Direct Bilirubin 0.3 (0.0-0.5) mg/dL AST 45 H (5-37) U/L ALT 55 H (0-40) U/L Alkaline Phosphatase 117 (39-117) U/L Total Protein 6.9 (6.5-8.0) g/dL Albumin 4.4 (3.5-5.0) g/dL Lipase 11 (8-78) U/L TSH 0.80 (0.32-4.0) uIU/mL Valproic Acid < 12.5 L (50.0-100.0) mcg/mL Ethyl Alcohol 14 mg/dL Independent Interpretation I performed an independent interpretation of an: EKG Interpretation: Rate: 100 Rhythm: NSR [place]: normal Normal P waves. Normal BRE. Normal QRS complex. ST T wave : normal no JORDAN qTC: 451 prior studies: no acute ischemia The study has been interpreted contemporaneously by me. . Independent Historian Clinical information obtained from an independent historian. History obtained from or confirmed by: EMS External Record Review External record reviewed: Inpatient record and Outpatient record Medications Administered Generic Name Dose Route Start Last Admin Trade Name Freq PRN Reason Stop Dose Admin Magnesium Sulfate 2 gm in 50 mls @ 25 mls/hr 07/07/24 07:54 07/07/24 08:35 Magnesium Sulfate/H2o IV 07/07/24 09:53 25 mls/hr ONCE ONE Administration Discontinued Medications Generic Name Dose Route Start Last Admin Trade Name Freq PRN Reason Stop Dose Admin Diazepam 5 mg 07/07/24 07:51 07/07/24 08:35 Diazepam 10 Mg/2 Ml Cartridge IVPUSH 07/07/24 07:52 5 mg STAT STA Administration Lactated Ringer's 1,000 mls @ 999 mls/hr 07/07/24 07:51 07/07/24 08:35 Lr IV 07/07/24 08:51 999 mls/hr .Q1H1M ONE Administration Thiamine HCl 200 mg/ Sodium 102 mls @ 204 mls/hr 07/07/24 07:54 07/07/24 09:05 Chloride IV 07/07/24 08:23 Infused ONCE ONE Infusion Pantoprazole Sodium 40 mg 07/07/24 07:54 07/07/24 08:34 Pantoprazole Sodium 40 Mg/10 Ml Vial IVPUSH 07/07/24 07:55 40 mg ONCE ONE Administration Phenobarbital Sodium 290 mg 07/07/24 09:00 07/07/24 08:34 Phenobarbital Sodium 130 Mg/Ml Im Once IM 07/07/24 09:01 290 mg ONCE ONE Administration Protocol Critical Care Time Critical Care Time Critical Care Time: Yes Total Critical Care Time: 45 Attestation: Time is exclusive of separately billable procedures. Time includes: direct patient care, patient reassessment, coordination of patient care, interpretation of data (laboratory data, pulse oximetry, arterial blood gases and chest xrays), review of patient's medical records, medical consultation and documentation of patient care. Procedures excluded from critical care time: electrocardiography. Repeat IV valium, phenobarb protocol, IV magnesium I attest to this time spent taking care of the patient Discharge Plan Discharge Clinical Impression: Alcohol use disorder, Acute alcoholic gastritis Patient Disposition: Admitted As Inpatient Prescriptions: No Action acetaminophen 650 mg Tablet Extended Release 650 mg PO Q6H PRN (Reason: Elevated Temp) bisoprolol fumarate 5 mg Tablet 5 mg PO DAILY lorazepam [Lorazepam Intensol] 2 mg/mL Concentrate 1 mg PO Q5M PRN (Reason: Seizures) multivitamin Tablet 1 tab PO DAILY sennosides [senna] 8.6 mg Tablet 8.6 mg PO DAILY PRN (Reason: Constipation) chlorpromazine 100 mg Tablet 100 mg PO BID naloxone 0.4 mg/mL Solution 0.4 mg SUBCUT Q3M PRN (Reason: Suspected OD) Rx Instructions: NTExceed 10 mg total dose/episode clonazepam 0.5 mg Tablet 0.5 mg PO BID thiamine HCl (vitamin B1) 100 mg Tablet 100 mg PO DAILY famotidine 20 mg Tablet 20 mg PO BID sodium phosphates 19-7 gram/118 mL Enema 118 ml NE DAILY PRN (Reason: If Bisacodyl not effective) Rx Instructions: only if Bisacodyl supp. is ineffective docusate sodium [Colace] 100 mg Capsule 100 mg PO BID folic acid 1 mg Tablet 1 mg PO DAILY divalproex [Depakote ER] 250 mg Tablet Extended Release 24 Hr 250 mg PO BID buprenorphine-naloxone [Suboxone] 2-0.5 mg Film 1 film sublingual DAILY Rx Instructions: place 1 strip/tab under (each) side of tongue sodium chloride 1,000 mg tablet,soluble 1,000 mg PO BID Qty: 10 0RF levothyroxine 75 mcg capsule 75 mcg PO DAILY@0600 Print Language: Welsh
[2024-07-07 08:23] LABS: MANUAL DIFF FLAG NO
[2024-07-07 08:25] LABS: Basophils Percent Auto 0.5 % (0-2); Eosinophils Percent Auto 0.3 % (0-4); Hematocrit 43.8 % (42.0-52.0); Hemoglobin 16.3 g/dl (14.0-18.0); Imm Gran Abs Auto 0.03 X10*3/uL (0.00-0.03); Imm Gran Pct Auto 0.5 % (0.0-0.4); Lymphocytes Absolute Auto 2.7 X10*3/uL (1.2-4.9); Lymphocytes Percent Auto 44.9 % (20-40); Mean Corpuscular HGB Conc 37.2 g/dl (31.0-36.0); Mean Corpuscular Hemoglobin 31.6 pg (27.0-33.0); Mean Corpuscular Volume 84.9 fL (80.0-98.0); Monocytes Absolute Auto 0.4 X10*3/uL (0.1-1.2); Monocytes Percent Auto 6.1 % (2-11); Neutrophils Absolute Auto 2.8 x10*3/uL (2.0-8.3); Neutrophils Percent Auto 47.7 % (45-73); Platelet Count 219 X10*3/uL (160-400); Red Blood Count 5.16 X10*6/uL (4.60-5.80); Red Cell Distribution Width 11.9 % (11.0-16.0); White Blood Count 5.9 X10*3/uL (4.8-10.8)
[2024-07-07] MEDS: Pantoprazole Sodium 40 MG/10 ML VIAL IVPUSH ×2 (08:34→16:29)
[2024-07-07] MEDS: PHENobarbitaL sodium 130 MG/ML IM ONCE 290 MG IM (08:34)
[2024-07-07] MEDS: Magnesium Sulfate/H2O 2 GM/50 ML PIGGYBACK IV (08:35)
[2024-07-07] MEDS: Thiamine HCL 200 MG in 0.9 % Sodium Chloride 100 ML 204 MG IV ×2 (08:35→19:48)
[2024-07-07] MEDS: diazePAM 10 MG/2 ML CARTRIDGE 5 MG IVPUSH (08:35)
[2024-07-07] MEDS: Lactated Ringers 1,000 ML 999 ML IV (08:35)
[2024-07-07 08:47] LABS: Valproate < 12.5 mcg/mL (50.0-100.0)
[2024-07-07 08:48] LABS: Alanine Aminotransferase 55 U/L (0-40); Albumin Level 4.4 g/dL (3.5-5.0); Alkaline Phosphatase 117 U/L (39-117); Anion Gap 16 (12-20); Aspartate Amino Transferase 45 U/L (5-37); Bilirubin Direct 0.3 mg/dL (0.0-0.5); Bilirubin Total 0.9 mg/dL (0.0-1.0); Blood Urea Nitrogen 15 mg/dL (9-16); Carbon Dioxide 25 mmol/L (22-29); Chloride 107 mmol/L (96-108); Creatinine Clr Calc Pharmacy 138.2; Estimated Glomerular Filt Rate > 60; Ethanol 14 mg/dL; Glucose Random 121 mg/dL (60-115); Lipase 11 U/L (8-78); Magnesium 1.9 mg/dL (1.6-2.6); Potassium 3.6 mmol/L (3.3-5.1); Sodium 144 mmol/L (135-145); Total Protein 6.9 g/dL (6.5-8.0)
[2024-07-07] MEDS: diazePAM 10 MG/2 ML CARTRIDGE 2.5 MG IVPUSH (09:29)
--- NOTE | 2024-07-07 09:36 | PM.IMHP ---
History of Present Illness Date of Service: 07/07/24 Attending physician on admission: Niraj Jarquin Chief Complaint: Alcohol withdrawal Pt is a 33-year-old male with a PMH significant for?TBI, hx of craniotomy w/right temporal encephalomalacia in 2022, hypothyroidism, hx of seizure possibly from hyponatremia, GERD, alcohol use disorder, substance use disorder, and mood disorder who presents to the ED with acute pt reports has been drinking over 20 nips per day with the past few months. Last drink this morning at 02:00. Woke up this morning and just no longer wanted to continue drinking. Has been experiencing daily nausea and vomiting, morning shakes, not eating or drinking, and not going to work. Noticed some flecks of blood in his vomit a few days ago, as well as dark-colored stools for the past few days. No coffee-ground emesis. Reports increased anxiety. Denies lightheadedness or dizziness. Denies chest pain/pressure, palpitations. No SOB or difficulty breathing. Denies auditory, visual, or tactile disturbances. In the ED pt with elevated HR of 100 and mild hypertension of 141/94. Labs were significant for mildly elevated AST and ALT of 45 and 55, ethyl 14. Valproic acid undetectable. No leukocytosis. H&H 16.3/43.8. No significant electrolyte abnormalities. Renal function baseline. EKG demonstrated normal sinus rhythm with QTC WNL and no evidence of ischemic changes. Pt was treated in the ED with IVF, diazepam, Mag sulfate, thiamine IV, Protonix, and started on phenobarb protocol. Pt is admitted to the hospital for treatment and further evaluation of acute alcohol withdrawal. Review of Systems Review of Systems: Negative except for that which is stated in the HPI. [facility] Medical History Hyponatremia Hypothyroidism Opiate use Psychosis Impulse disorder TBI (traumatic brain injury) Social History Household Members: Other Housing: Other Housing Other:: [facility] Do you presently have visiting nurse or other home services: No Patient Tobacco Use Status: Former Tobacco user Advance Directives: No Advance Directives Information Provided: Yes Do you have a plan to hurt others: No Plan service: No Meds Allergies Allergy/AdvReac Type Severity Reaction Status Date / Time No Known Allergies Allergy Verified 07/07/24 07:56 [No Known Allergies*] Active Medications: Current Medications Magnesium Sulfate (Magnesium Sulfate/H2o) 2 gm in 50 mls @ 25 mls/hr IV ONCE ONE Stop: 07/07/24 09:53 Last Admin: 07/07/24 08:35 Dose: 25 mls/hr Pharmacy Consult (Consult Rx Etoh Phenob Im/Po) 1 each MISCELLANE ONCE PRN; Protocol PRN Reason: Consult order Phenobarbital (Phenobarbital 15 Mg Tablet) 45 mg PO BID RAFAEL; Protocol Stop: 07/09/24 21:01 Phenobarbital (Phenobarbital 15 Mg Tablet) 15 mg PO BID RAFAEL; Protocol Stop: 07/11/24 21:01 Phenobarbital (Phenobarbital 15 Mg Tablet) 15 mg PO DAILY RAFAEL; Protocol Stop: 07/13/24 09:01 Phenobarbital Sodium (Phenobarbital Sodium 130 Mg/Ml Vial Im Q3hx2) 220 mg IM Q3H RAFAEL; Protocol Stop: 07/07/24 15:01 Home Medications ?Medication ?Instructions ?Recorded ?Confirmed ?Last Taken ?Type multivitamin 1 tab PO DAILY 08/05/23 07/07/24 07/06/24 History thiamine HCl (vitamin B1) 100 mg 100 mg PO DAILY 08/05/23 07/07/24 07/06/24 History tablet levothyroxine 75 mcg capsule 75 mcg PO DAILY@0600 09/14/23 07/07/24 07/06/24 History levetiracetam 500 mg tablet 500 mg PO Q12H 07/07/24 07/07/24 Unknown History propranolol 10 mg tablet 10 mg PO DAILY 07/07/24 07/07/24 07/06/24 History sodium chloride 1,000 mg soluble 1,000 mg PO BID 07/07/24 07/07/24 Unknown History tablet Physical Exam Vital Signs and Narrative: Vital Signs: Last Vital Signs Temp 97.9 F 07/07/24 07:54 Pulse 100 07/07/24 07:54 Resp 20 07/07/24 07:54 BP 135/93 H 07/07/24 07:54 Pulse Ox 96 07/07/24 07:54 O2 Del Method Room Air 07/07/24 07:54 BMI result Body Mass Index 27.7 General: AOx3, no acute distress Resp: CTA bilaterally CVS: S1, S2, regular rhythm, tachycardic GI: +BS, NT, no distention Skin: Warm, dry Neuro: Cranial nerves II-XII grossly intact bilaterally. Motor grossly intact bilaterally. Mild upper extremity tremors. No tongue fasciculations. Extremities: No edema Psych: Appropriate affect Results Labs 07/07/24 08:18 07/07/24 08:18 Labs: Laboratory Results - last 24 hr 07/07/24 08:18 MCV 84.9 MCH 31.6 MCHC 37.2 H RDW 11.9 Plt Count 219 MPV 10.0 Immature Gran % (Auto) 0.5 H Neut % (Auto) 47.7 Lymph % (Auto) 44.9 H [place] % (Auto) 6.1 Eos % (Auto) 0.3 Baso % (Auto) 0.5 Lymph # (Auto) 2.7 [place] # (Auto) 0.4 Eos # (Auto) 0.0 Baso # (Auto) 0.0 Abs Immat Gran (auto) 0.03 Absolute Neuts (auto) 2.8 Absolute Nucleated RBC 0.000 Nucleated RBC % (auto) 0.0 Anion Gap 16 Estim Creat Clear Calc 138.2 Estimated GFR > 60 Random Glucose 121 H Calcium 9.0 D Magnesium 1.9 Total Bilirubin 0.9 Direct Bilirubin 0.3 AST 45 H ALT 55 H Alkaline Phosphatase 117 Total Protein 6.9 Albumin 4.4 Lipase 11 TSH 0.80 Valproic Acid < 12.5 L Ethyl Alcohol 14 Assessment and Plan (1) Acute alcoholic gastritis: Qualifiers: Gastritis bleeding: with bleeding Qualified Code(s): K29.21 - Alcoholic gastritis with bleeding Status: Acute (2) Alcohol use disorder: Status: Acute Plan Pt is a 33-year-old male with a PMH significant for?TBI, hx of craniotomy w/right temporal encephalomalacia in 2022, hypothyroidism, hx of seizure possibly from hyponatremia, GERD, alcohol use disorder, substance use disorder, and mood disorder who presents to the ED for alcohol detox. pt reports has been drinking over 20 nips per day with the past few Acute alcohol withdrawal Has been drinking 2-3 sleeves daily for the past few months, last drink this morning 02:00 Increased anxiety, tremors, N/V Will treat with phenobarb protocol With thiamine, Protonix, folic acid, daily multivitamin Seizure precautions Monitor on [facility] medicine consult Monitor on telemetry Acute alcohol gastritis with question of hematemesis Pt with daily N/V Reports some flecks of bright red blood in vomitus a few days ago, dark-colored stools for the past few days Likely secondary to Yolanda-Yi tears, no evidence of kathy bleeding or coffee-ground emesis Treat as above with Protonix Monitor H&H Hx of seizures Pt with 1 episode of seizure in 2023 Likely secondary to hyponatremia of 114 Denies subsequent seizure activity Continue Keppra Hypothyroidism Continue levothyroxine Hx of hyponatremia Sodium currently WNL Continue sodium chloride supplementation Mood disorder No longer on mood stabilizers Hydroxyzine p.r.n. Full Code Attending:?Dr. Jarquin DVT Prophylaxis: Pneumatic compression and ambulation due to possible hematemesis Pt will require a hospitalization of at least two nights for treatment of?acute alcohol withdrawal. Given patient's hx of electrolyte abnormalities, TBI, and seizure activity, pt will require hospital level care for administration of phenobarb protocol and close cardiac and neurological monitoring. Quality Stroke Does the patient have a stroke diagnosis?: No VTE Prior VTE?: No VTE Risk Level:: Medical - moderate - high VTE Device Contraindication: N/A - Device Ordered VTE Drug Contraindication: Treatment Not Indicated
--- NOTE | 2024-07-07 10:26 | PHA.MEDREC ---
Addendum entered by Ameya Pina RPh 07/07/24 10:55: Med rec was reviewed by Isidra. Original Note: Pharmacy Consult ? Medication Reconciliation Pharmacy has completed the medication reconciliation. Spoke with patient and he confirmed he is currently taking prescription medications and getting everything filled at [facility] in [facility]. Pt confirmed he is taking a Levothyroxine tablet QD but didn't remember the dose at this time. Pt also confirmed Vitamin B1 and a Multivitamin OTC once a day. I called [facility] and they confirmed the patient has Levetiracetam 500mg tablets ready for him right now and got some at the beginning oh this month. [facility] also confirmed pt last filled Levothyroxine 75mcg tabs 04/2024 for 30 days along with Propanolol 10mg QD and Sodium Chloride 1000mg BID; patient confirmed the dose of those when I asked about those medications and stated he was still taking those medications.
--- NOTE | 2024-07-07 10:34 | PC.NURSE ---
Pt verablized increased anxiety. Provider ordered another 2.5mg of IV valium
[2024-07-07] MEDS: Multivitamin TABLET 1 TAB PO (10:57)
[2024-07-07] MEDS: levETIRAcetam 500 MG TABLET PO ×2 (10:57→23:20)
[2024-07-07] MEDS: Propranolol HCL 10 MG TABLET PO (10:57)
[2024-07-07 10:58] LABS: Amphetamine Screen Urine Not Detected (Not Detect); Barbiturates, Urine POSITIVE (Not Detect); Benzodiazepines Screen Urine Not Detected (Not Detect); Buprenorphine Scr Not Detected (Not Detect); Cannabinoid Screen Urine POSITIVE (Not Detect); Cocaine Screen Urine Not Detected (Not Detect); Fentanyl, urine Not Detected (Not Detect); Methadone Screen, Urine Not Detected (Not Detect); Opiate Screen Urine Not Detected (Not Detect); Oxycodone Screen Urine Not Detected (Not Detect); Phencyclidine Screen Urine Not Detected (Not Detect)
[2024-07-07] MEDS: Folic Acid 1 MG TABLET PO (10:59)
--- NOTE | 2024-07-07 11:00 | MHC.EDTECH ---
Ask patient if he is ready to ambulate but wants to sleep due to not sleeping good last night
[2024-07-07] MEDS: PHENobarbitaL sodium 130 MG/ML VIAL IM Q3Hx2 220 MG IM ×2 (12:53→15:30)
[2024-07-07] MEDS: Acetaminophen 325 MG TABLET 650 MG PO (15:39)
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
--- NOTE | 2024-07-07 16:20 | MHC.EDTECH ---
pt outputted 200mL of yellow urine into urinal
[2024-07-07] MEDS: 0.9 % Sodium Chloride Flush 3 ML SYRINGE IVFLUSH ×2 (16:29→19:48)
[2024-07-07] MEDS: hydrOXYzine HCL 25 MG TABLET PO ×2 (17:05→23:20)
[2024-07-07] MEDS: Nicotine 21 MG PATCH.TD24 TRANSDERMA (17:05)
[2024-07-07] MEDS: Sodium Chloride Tab 1 GM TABLET PO (19:48)
[2024-07-07] MEDS: hydrOXYzine HCL 50 MG TABLET PO (19:48)
[2024-07-08 03:42] VITALS: BP 142/94; PULSE 78; RESP 16; TEMP 36.9; O2SAT 98
[2024-07-08] MEDS: Levothyroxine Sodium 75 MCG TABLET PO (05:25)
[2024-07-08] MEDS: Pantoprazole Sodium 40 MG/10 ML VIAL IVPUSH ×2 (05:26→15:54)
[2024-07-08 07:03] LABS: Hematocrit 37.7 % (42.0-52.0); Hemoglobin 13.8 g/dl (14.0-18.0); Mean Corpuscular HGB Conc 36.6 g/dl (31.0-36.0); Mean Corpuscular Volume 87.5 fL (80.0-98.0); Mean Platelet Volume 10.2 fL (9.4-12.4); Platelet Count 155 X10*3/uL (160-400); Red Blood Count 4.31 X10*6/uL (4.60-5.80); Red Cell Distribution Width 11.9 % (11.0-16.0); White Blood Count 5.4 X10*3/uL (4.8-10.8)
[2024-07-08 07:16] LABS: Anion Gap 13 (12-20); Blood Urea Nitrogen 16 mg/dL (9-16); Calcium 8.2 mg/dL (8.4-10.2); Carbon Dioxide 23 mmol/L (22-29); Chloride 108 mmol/L (96-108); Creatinine Clr Calc Pharmacy 149.8; Estimated Glomerular Filt Rate > 60; Glucose Random 140 mg/dL (60-115); Potassium 3.5 mmol/L (3.3-5.1); Sodium 140 mmol/L (135-145)
[2024-07-08 07:45] VITALS: BP 152/90; PULSE 94; RESP 18; TEMP 36.3; O2SAT 96
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
[2024-07-08 10:35] VITALS: BP 152/90; PULSE 94
[2024-07-08] MEDS: levETIRAcetam 500 MG TABLET PO ×2 (10:35→23:27)
[2024-07-08] MEDS: Multivitamin TABLET 1 TAB PO (10:35)
[2024-07-08] MEDS: Propranolol HCL 10 MG TABLET PO (10:35)
[2024-07-08] MEDS: Thiamine HCL 200 MG in 0.9 % Sodium Chloride 100 ML 204 MG IV ×2 (10:35→19:40)
[2024-07-08] MEDS: Folic Acid 1 MG TABLET PO (10:35)
[2024-07-08] MEDS: Sodium Chloride Tab 1 GM TABLET PO ×2 (10:35→19:41)
[2024-07-08] MEDS: Nicotine 21 MG PATCH.TD24 TRANSDERMA (10:35)
[2024-07-08] MEDS: PHENobarbitaL 15 MG TABLET 45 MG PO ×2 (10:35→19:40)
[2024-07-08] MEDS: 0.9 % Sodium Chloride Flush 3 ML SYRINGE IVFLUSH ×3 (10:36→19:41)
[2024-07-08] MEDS: hydrOXYzine HCL 25 MG TABLET PO ×3 (10:38→23:27)
[2024-07-08 11:09] VITALS: BP 127/77; PULSE 83; RESP 18; TEMP 37; O2SAT 96
--- NOTE | 2024-07-08 11:39 | P.PNIM_ITS ---
Subjective Subjective Date of Service: 07/08/24 Interval History: No acute issues overnight. CIWA 3-5 without seizures Review of Systems Negative except for that which is stated in the HPI. Physical Exam 2 Vital Signs: Vital Signs: Last Vital Signs Temp 98.6 F 07/08/24 11:09 Pulse 83 07/08/24 11:09 Resp 18 07/08/24 11:09 BP 127/77 07/08/24 11:09 Pulse Ox 96 07/08/24 11:09 O2 Del Method Room Air 07/08/24 11:09 BMI result Body Mass Index 27.9 Objective Data Active Medications Acetaminophen (Acetaminophen 325 Mg Tablet) 650 mg PO Q6H PRN PRN Reason: Pain, Mild 1-3,fever,headache Last Admin: 07/07/24 15:39 Dose: 650 mg Documented By: STALIN Calcium Carbonate (Calcium Carbonate 750 Mg Tab.Chew) 750 mg PO Q4H PRN PRN Reason: Heartburn Famotidine (Famotidine/Pf 20 Mg/2 Ml Vial) 20 mg IVPUSH BID [facility] Folic Acid (Folic Acid 1 Mg Tablet) 1 mg PO DAILY [facility] Stop: 07/10/24 10:54 Last Admin: 07/08/24 10:35 Dose: 1 mg Documented By: ANIYAH Hydroxyzine HCl (Hydroxyzine Hcl 25 Mg Tablet) 25 mg PO Q6H PRN PRN Reason: Anxiety Last Admin: 07/08/24 10:38 Dose: 25 mg Documented By: ANIYAH Thiamine HCl 200 mg/ Sodium (Chloride) 102 mls @ 204 mls/hr IV Q12H [facility] Stop: 07/08/24 21:29 Last Infusion: 07/08/24 11:23 Dose: Infused Documented By: ANIYAH Levetiracetam (Levetiracetam 500 Mg Tablet) 500 mg PO Q12H [facility] Last Admin: 07/08/24 10:35 Dose: 500 mg Documented By: ANIYAH Levothyroxine Sodium (Levothyroxine Sodium 75 Mcg Tablet) 75 mcg PO DAILY@0600 [facility] Last Admin: 07/08/24 05:25 Dose: 75 mcg Documented By: FELIX Magnesium Hydroxide (Milk Of Magnesia 30 Ml Oral.Susp) 30 ml PO DAILY PRN PRN Reason: Constipation Multivitamins/Vitamin C (Multivitamin Tablet) 1 tab PO DAILY [facility] Last Admin: 07/08/24 10:35 Dose: 1 tab Documented By: ANIYAH Nicotine (Nicotine 21 Mg Patch.Td24) 21 mg TRANSDERMA DAILY [facility] Last Admin: 07/08/24 10:35 Dose: 21 mg Documented By: ANIYAH Ondansetron HCl (Ondansetron Hcl 4 Mg/2 Ml Vial) 4 mg IVPUSH Q8H PRN PRN Reason: Nausea and Vomiting Pantoprazole Sodium (Pantoprazole Sodium 40 Mg/10 Ml Vial) 40 mg IVPUSH BID@0630,1630 [facility] Stop: 07/08/24 16:31 Last Admin: 07/08/24 05:26 Dose: 40 mg Documented By: FELIX Pharmacy Consult (Consult Rx Etoh Phenob Im/Po) 1 each MISCELLANE ONCE PRN; Protocol PRN Reason: Consult order Phenobarbital (Phenobarbital 15 Mg Tablet) 45 mg PO BID [facility]; Protocol Stop: 07/09/24 21:01 Last Admin: 07/08/24 10:35 Dose: 45 mg Documented By: ANIYAH Phenobarbital (Phenobarbital 15 Mg Tablet) 15 mg PO BID [facility]; Protocol Stop: 07/11/24 21:01 Phenobarbital (Phenobarbital 15 Mg Tablet) 15 mg PO DAILY [facility]; Protocol Stop: 07/13/24 09:01 Propranolol HCl (Propranolol Hcl 10 Mg Tablet) 10 mg PO DAILY [facility]; Protocol Last Admin: 07/08/24 10:35 Dose: 10 mg Documented By: ANIYAH Sodium Chloride (0.9 % Sodium Chloride Flush 3 Ml Syringe) 3 ml IVFLUSH QSHIFT [facility] Last Admin: 07/08/24 10:36 Dose: 3 ml Documented By: ANIYAH Sodium Chloride (Sodium Chloride Tab 1 Gm Tablet) 1 gm PO BID [facility] Last Admin: 07/08/24 10:35 Dose: 1 gm Documented By: ANIYAH Thiamine HCl (Thiamine Hcl 100 Mg Tablet) 100 mg PO DAILY [facility] Stop: 07/12/24 08:59 Labs 07/08/24 06:51 07/08/24 06:51 Labs: Laboratory Results - last 24 hr 07/08/24 06:51 MCV 87.5 MCH 32.0 MCHC 36.6 H RDW 11.9 Plt Count 155 L D MPV 10.2 Absolute Nucleated RBC 0.000 Nucleated RBC % (auto) 0.0 Anion Gap 13 Estim Creat Clear Calc 149.8 Estimated GFR > 60 Random Glucose 140 H Calcium 8.2 L D Assessment and Plan (1) Acute alcoholic gastritis: Status: Acute (2) Alcohol use disorder: Status: Acute Plan Pt is a 33-year-old male with a PMH significant for?TBI, hx of craniotomy w/right temporal encephalomalacia in 2022, hypothyroidism, hx of seizure possibly from hyponatremia, GERD, alcohol use disorder, substance use disorder, and mood disorder who presents to the ED for alcohol detox. pt reports has been drinking over 20 nips per day with the past few 1.Acute alcohol withdrawal -CIWA acceptable on phenobarb protocol. Patient notes improvement -continue seizure protocol -appreciate addiction Medicine consult 2.Acute alcohol gastritis with question of hematemesis -none since admission -continue pantoprazole; switch to p.o. upon discharge 3.Hx of seizures -no recent seizures -continue Keppra 4.Hypothyroidism -levothyroxine 5.Hx of hyponatremia -stable and well compensated Full code Pneumatics Patient requires ongoing hospitalization for IV Protonix and CIWA scale Quality Stroke Does the patient have a stroke diagnosis?: No VTE Prior VTE?: No VTE Risk Level:: Medical - moderate - high VTE Device Contraindication: N/A - Device Ordered VTE Drug Contraindication: Treatment Not Indicated
[2024-07-08 15:39] VITALS: BP 119/67; PULSE 84; RESP 18; TEMP 36.4; O2SAT 95
[2024-07-08 19:42] VITALS: BP 133/87; PULSE 88; RESP 18; TEMP 36.5; O2SAT 97
[2024-07-09] VITALS (8 sets, daily range): BP systolic 134–151; BP diastolic 68–91; PULSE 82–90; RESP 18–19; TEMP 36.1–36.6; O2SAT 77–97
[2024-07-09] MEDS: Acetaminophen 325 MG TABLET 650 MG PO ×2 (02:08→19:44)
[2024-07-09] MEDS: traMADoL HCL 50 MG TABLET 25 MG PO (02:31)
[2024-07-09] MEDS: hydrOXYzine HCL 25 MG TABLET PO ×2 (06:14→16:01)
[2024-07-09] MEDS: Levothyroxine Sodium 75 MCG TABLET PO (06:14)
[2024-07-09] MEDS: Thiamine HCL 100 MG TABLET PO (08:46)
[2024-07-09] MEDS: Folic Acid 1 MG TABLET PO (08:46)
[2024-07-09] MEDS: PHENobarbitaL 15 MG TABLET 45 MG PO ×2 (08:46→19:44)
[2024-07-09] MEDS: 0.9 % Sodium Chloride Flush 3 ML SYRINGE IVFLUSH (08:47)
[2024-07-09] MEDS: Sodium Chloride Tab 1 GM TABLET PO ×2 (08:47→19:45)
[2024-07-09] MEDS: Multivitamin TABLET 1 TAB PO (08:47)
[2024-07-09] MEDS: Propranolol HCL 10 MG TABLET PO (08:47)
[2024-07-09] MEDS: Nicotine 21 MG PATCH.TD24 TRANSDERMA (08:51)
--- NOTE | 2024-07-09 09:29 | P.PNIM_ITS ---
Subjective Subjective Date of Service: 07/09/24 Interval History: Continues to score 4-5 on CIWA. No seizures Review of Systems Negative except for that which is stated in the HPI. Physical Exam 2 Vital Signs: Vital Signs: Last Vital Signs Temp 97.8 F 07/09/24 07:23 Pulse 90 07/09/24 07:23 Resp 19 07/09/24 07:23 BP 151/91 H 07/09/24 07:23 Pulse Ox 92 07/09/24 07:23 O2 Del Method Room Air 07/09/24 07:23 BMI result Body Mass Index 27.9 Objective Data Active Medications Acetaminophen (Acetaminophen 325 Mg Tablet) 650 mg PO Q6H PRN PRN Reason: Pain, Mild 1-3,fever,headache Last Admin: 07/09/24 02:08 Dose: 650 mg Documented By: FELIX Calcium Carbonate (Calcium Carbonate 750 Mg Tab.Chew) 750 mg PO Q4H PRN PRN Reason: Heartburn Famotidine (Famotidine/Pf 20 Mg/2 Ml Vial) 20 mg IVPUSH BID [facility] Last Admin: 07/09/24 08:56 Dose: Not Given Documented By: SOHAM Non-Admin Reason: No IV access/ pt refused IV restart Folic Acid (Folic Acid 1 Mg Tablet) 1 mg PO DAILY [facility] Stop: 07/10/24 10:54 Last Admin: 07/09/24 08:46 Dose: 1 mg Documented By: SOHAM Hydroxyzine HCl (Hydroxyzine Hcl 25 Mg Tablet) 25 mg PO Q6H PRN PRN Reason: Anxiety Last Admin: 07/09/24 06:14 Dose: 25 mg Documented By: FELIX Levetiracetam (Levetiracetam 500 Mg Tablet) 500 mg PO Q12H [facility] Last Admin: 07/08/24 23:27 Dose: 500 mg Documented By: FELIX Levothyroxine Sodium (Levothyroxine Sodium 75 Mcg Tablet) 75 mcg PO DAILY@0600 [facility] Last Admin: 07/09/24 06:14 Dose: 75 mcg Documented By: FELIX Magnesium Hydroxide (Milk Of Magnesia 30 Ml Oral.Susp) 30 ml PO DAILY PRN PRN Reason: Constipation Multivitamins/Vitamin C (Multivitamin Tablet) 1 tab PO DAILY [facility] Last Admin: 07/09/24 08:47 Dose: 1 tab Documented By: SOHAM Nicotine (Nicotine 21 Mg Patch.Td24) 21 mg TRANSDERMA DAILY [facility] Last Admin: 07/09/24 08:51 Dose: 21 mg Documented By: SOHAM Ondansetron HCl (Ondansetron Hcl 4 Mg/2 Ml Vial) 4 mg IVPUSH Q8H PRN PRN Reason: Nausea and Vomiting Pharmacy Consult (Consult Rx Etoh Phenob Im/Po) 1 each MISCELLANE ONCE PRN; Protocol PRN Reason: Consult order Phenobarbital (Phenobarbital 15 Mg Tablet) 45 mg PO BID [facility]; Protocol Stop: 07/09/24 21:01 Last Admin: 07/09/24 08:46 Dose: 45 mg Documented By: SOHAM Phenobarbital (Phenobarbital 15 Mg Tablet) 15 mg PO BID [facility]; Protocol Stop: 07/11/24 21:01 Phenobarbital (Phenobarbital 15 Mg Tablet) 15 mg PO DAILY [facility]; Protocol Stop: 07/13/24 09:01 Propranolol HCl (Propranolol Hcl 10 Mg Tablet) 10 mg PO DAILY [facility]; Protocol Last Admin: 07/09/24 08:47 Dose: 10 mg Documented By: SOHAM Sodium Chloride (0.9 % Sodium Chloride Flush 3 Ml Syringe) 3 ml IVFLUSH QSHIFT [facility] Last Admin: 07/09/24 08:47 Dose: 3 ml Documented By: SOHAM Sodium Chloride (Sodium Chloride Tab 1 Gm Tablet) 1 gm PO BID [facility] Last Admin: 07/09/24 08:47 Dose: 1 gm Documented By: SOHAM Thiamine HCl (Thiamine Hcl 100 Mg Tablet) 100 mg PO DAILY [facility] Stop: 07/12/24 08:59 Last Admin: 07/09/24 08:46 Dose: 100 mg Documented By: SOHAM Warfarin Sodium (Warfarin Sodium 0.5 Mg Halftab) 0.5 mg PO DAILY@1800 [facility] Warfarin Sodium (Warfarin Sodium 1 Mg Tablet) 1 mg PO DAILY@1800 [facility] Labs 07/08/24 06:51 07/08/24 06:51 Assessment and Plan (1) Acute alcoholic gastritis: Status: Acute (2) Alcohol use disorder: Status: Acute Plan Pt is a 33-year-old male with a PMH significant for?TBI, hx of craniotomy w/right temporal encephalomalacia in 2022, hypothyroidism, hx of seizure possibly from hyponatremia, GERD, alcohol use disorder, substance use disorder, and mood disorder who presents to the ED for alcohol detox. pt reports has been drinking over 20 nips per day with the past few 1.Acute alcohol withdrawal -CIWA acceptable on phenobarb protocol.. Score 4-5. -continue seizure protocol -appreciate addiction Medicine consult 2.Acute alcohol gastritis with question of hematemesis -none since admission -continue pantoprazole; switch to p.o. upon discharge 3.Hx of seizures -no recent seizures -continue Keppra 4.Hypothyroidism -levothyroxine 5.Hx of hyponatremia -stable and well compensated Full code Pneumatics Patient requires ongoing hospitalization for IV Protonix and CIWA scale Quality Stroke Does the patient have a stroke diagnosis?: No VTE Prior VTE?: No VTE Risk Level:: Medical - moderate - high VTE Device Contraindication: N/A - Device Ordered VTE Drug Contraindication: Treatment Not Indicated
[2024-07-09] MEDS: levETIRAcetam 500 MG TABLET PO (11:30)
[2024-07-09] MEDS: Omeprazole 40 MG CAPSULE.DR PO (11:30)
[2024-07-09] MEDS: Nicotine Polacrilex Lozenge 2 MG LOZENGE BUCCAL (21:44)
[2024-07-10] MEDS: hydrOXYzine HCL 25 MG TABLET PO (00:21)
[2024-07-10] MEDS: levETIRAcetam 500 MG TABLET PO ×2 (00:21→10:14)
[2024-07-10 03:41] VITALS: BP 152/94; PULSE 81; RESP 18; TEMP 36.1; O2SAT 96
[2024-07-10] MEDS: Omeprazole 40 MG CAPSULE.DR PO (06:19)
[2024-07-10] MEDS: Levothyroxine Sodium 75 MCG TABLET PO (06:19)
[2024-07-10 07:32] VITALS: BP 131/83; PULSE 100; RESP 18; TEMP 36.2; O2SAT 97
[2024-07-10] MEDS: Sodium Chloride Tab 1 GM TABLET PO (08:51)
[2024-07-10] MEDS: Nicotine 21 MG PATCH.TD24 TRANSDERMA (08:51)
[2024-07-10] MEDS: Folic Acid 1 MG TABLET PO (08:52)
[2024-07-10] MEDS: Propranolol HCL 10 MG TABLET PO (08:52)
[2024-07-10] MEDS: Multivitamin TABLET 1 TAB PO (08:52)
[2024-07-10] MEDS: PHENobarbitaL 15 MG TABLET PO (08:52)
[2024-07-10] MEDS: Thiamine HCL 100 MG TABLET PO (08:52)
--- NOTE | 2024-07-10 11:31 | PM.DS ---
DS: Providers Provider Date of Service: 07/10/24 Date of admission: 07/07/24 09:36 Date of discharge: 07/10/24 Primary care physician: None Physician Consults: 07/07/24 10:49 Addiction Medicine Provider Routine Consulting Provider: Howie Covering Reason for consultation: AUD DS: Diagnosis Discharge Diagnosis (1) Acute alcoholic gastritis: Status: Acute (2) Alcohol use disorder: Status: Acute DS: Summary Hospital Course Hospital Course: From admitting HPI: Pt is a 33-year-old male with a PMH significant for?TBI, hx of craniotomy w/right temporal encephalomalacia in 2022, hypothyroidism, hx of seizure possibly from hyponatremia, GERD, alcohol use disorder, substance use disorder, and mood disorder who presents to the ED with acute pt reports has been drinking over 20 nips per day with the past few months. Last drink this morning at 02:00. Woke up this morning and just no longer wanted to continue drinking. Has been experiencing daily nausea and vomiting, morning shakes, not eating or drinking, and not going to work. Noticed some flecks of blood in his vomit a few days ago, as well as dark-colored stools for the past few days. No coffee-ground emesis. Reports increased anxiety. Denies lightheadedness or dizziness. Denies chest pain/pressure, palpitations. No SOB or difficulty breathing. Denies auditory, visual, or tactile disturbances. In the ED pt with elevated HR of 100 and mild hypertension of 141/94. Labs were significant for mildly elevated AST and ALT of 45 and 55, ethyl 14. Valproic acid undetectable. No leukocytosis. H&H 16.3/43.8. No significant electrolyte abnormalities. Renal function baseline. EKG demonstrated normal sinus rhythm with QTC WNL and no evidence of ischemic changes. Pt was treated in the ED with IVF, diazepam, Mag sulfate, thiamine IV, Protonix, and started on phenobarb protocol. Pt is admitted to the hospital for treatment and further evaluation of acute alcohol withdrawal. Hospital course: Pt was treated for acute alcohol withdrawal with phenobarb protocol. Pt tolerated treatment well and consistently scored low on the CIWA, which has been 0 for the past 18 hours. Pt with hx of seizure activity attributed to hyponatremia, was monitored on telemetry without any acute cardiac abnormalities. No seizure activity noted during hospital stay. Overall hospital stay has been unremarkable and pt feels ready to go home. Has previously been established with AA and counseling services through [facility] and would like to re-establish with them. Pt can be discharged without additional alcohol withdrawal treatment, but requests a script for nicotine gum. Time Attestation Discharge Coordination Time (in mins): 37 Quality: Safe Use of Opioids Does Pt have an Active Cancer Diagnosis on the Problem List?: No Quality: Stroke Does the patient have a stroke diagnosis?: No Physical Exam Vital Signs: Vital Signs: Last Vital Signs Temp 97.2 F 07/10/24 07:32 Pulse 100 07/10/24 07:32 Resp 18 07/10/24 07:32 BP 131/83 07/10/24 07:32 Pulse Ox 97 07/10/24 07:32 O2 Del Method Room Air 07/10/24 07:32 BMI result Body Mass Index 27.9 General: AOx3, no acute distress Resp: CTA bilaterally CVS: S1, S2, RRR GI: +BS, NT, no distention Skin: Warm, dry Neuro: Cranial nerves II-XII grossly intact bilaterally. Motor grossly intact bilaterally. No tremors noted. Extremities: No edema Psych: Appropriate affect Discharge Plan Discharge Anticipated Discharge Date/Time: 07/10/24 11:08 Patient Disposition: Home, Self-Care Discharge Diagnosis: Acute alcohol withdrawal Referrals: Physician,None [Primary Care Provider] - 1 Week Discharge Medications: New nicotine (polacrilex) 4 mg gum 4 mg buccal Q2H Qty: 100 0RF Rx Instructions: Chew one piece of gum every two hours as needed for nicotine cravings Continued multivitamin Tablet 1 tab PO DAILY thiamine HCl (vitamin B1) 100 mg Tablet 100 mg PO DAILY levetiracetam 500 mg Tablet 500 mg PO Q12H propranolol 10 mg Tablet 10 mg PO DAILY sodium chloride 1,000 mg Tablet,Soluble 1,000 mg PO BID levothyroxine 75 mcg capsule 75 mcg PO DAILY@0600 Discharge Orders: Discharge Order (Routine); Ordered 07/10/24 Ordered By: Adrian Rodriguez Activity on Discharge: As tolerated Stand Alone Forms: Patient Portal Discharge page Print Language: Welsh Care Plan Goals: Abstaining from alcohol use Establishing with counseling services and AA in order to improve chances of staying sober Health Concerns: Alcohol consumption Seizure activity Plan of Treatment: Re-establish with alcoholics anonymous in counseling services previously obtained through [facility] Abstaining from alcohol Nicotine gum as needed for nicotine cravings Assessment: See discharge summary Discharge Date/Time: 07/10/24 12:23
--- NOTE | 2024-07-10 11:39 | MHC.CM.PN ---
Patient medically cleared for dc home self care. CM discussed with patient at bedside and patient's father, Carlito via telephone. Both are agreeable to plan and confirmed that Carlito is still patient's guardian. Carlito will fax over updated guardianship (guardianship on paper chart is ). Patient will arrange own transport, OK'd by guardian. RN aware.
== END 2024-07-10 12:23 | disposition home or self-care (01) | DRG 775 ==
LOC: HO.ED 09:33 → HO.EDOVER 09:47 → HO.IMC 16:20
PROVIDERS: Admitting Provider Student in an Organized Health Care Education/Training Program; Emergency Provider Emergency Medicine; Visit Provider Student in an Organized Health Care Education/Training Program
DX: F10.139 Alcohol abuse with withdrawal, unspecified (principal); K29.21 Alcoholic gastritis with bleeding; E03.9 Hypothyroidism, unspecified; F17.210 Nicotine dependence, cigarettes, uncomplicated; Z71.6 Tobacco abuse counseling; Z87.820 Personal history of traumatic brain injury; Z79.890 Hormone replacement therapy; Z79.899 Other long term (current) drug therapy
CPT/HCPCS: 36415; 80048; 80076; 80164; 80307; 83690; 83735; 84443; 85025; 85027; 93005; 99285; J2470; J2560; J3360; J3411; J3475; J7120; S9485

== ENCOUNTER → 2024-07-07 07:50 | Outpatient (BNV) | payer MEDICAID, SELFPAY | PROVIDERS: Admitting Provider Student in an Organized Health Care Education/Training Program; Emergency Provider Emergency Medicine; Visit Provider Internal Medicine Cardiovascular Disease | DX: F19.139 Other psychoactive substance abuse with withdrawal, unspecified (principal) | CPT/HCPCS: 93010 ==

== ENCOUNTER → 2024-07-07 09:36 | Outpatient (BNV) | payer MEDICAID, SELFPAY | PROVIDERS: Admitting Provider Student in an Organized Health Care Education/Training Program; Emergency Provider Emergency Medicine; Visit Provider Nurse Practitioner Psychiatric/Mental Health | DX: F10.90 Alcohol use, unspecified, uncomplicated (principal) | CPT/HCPCS: 99222 ==

== ENCOUNTER → 2024-07-07 09:36 | Outpatient (BNV) | payer MEDICAID, SELFPAY | PROVIDERS: Admitting Provider Student in an Organized Health Care Education/Training Program; Emergency Provider Emergency Medicine; Visit Provider Student in an Organized Health Care Education/Training Program | DX: K29.21 Alcoholic gastritis with bleeding (principal); F10.90 Alcohol use, unspecified, uncomplicated | CPT/HCPCS: 99222; 99232; 99239 ==

== ENCOUNTER 2024-07-11 19:46 | Inpatient (IN) | payer OTHER, SELFPAY ==
[2024-07-11 19:52] VITALS: BP 109/69; BP 128/76; PULSE 101; RESP 18; TEMP 36.4; O2SAT 95; O2SAT 98; BMI 28.2
--- NOTE | 2024-07-11 20:03 | ECG_ITS ---
Test Reason : ETOH Blood Pressure : */* mmHG Vent. Rate : 102 BPM Atrial Rate : 102 BPM P-R Int : 188 ms QRS Dur : 84 ms QT Int : 336 ms P-R-T Axes : 37 24 19 degrees QTcB Int : 437 ms Sinus tachycardia Otherwise normal ECG When compared with ECG of 07-Jul-2024 08:05, No significant change was found Referred By: Generic ED Physician Electronically Signed By: Mateo Hill
[2024-07-11] MEDS: LORazepam 1 MG TABLET 2 MG PO (20:16)
[2024-07-11 20:20] LABS: MANUAL DIFF FLAG NO
[2024-07-11 20:22] LABS: Basophils Absolute Auto 0.1 X10*3/uL (0.0-0.2); Basophils Percent Auto 0.5 % (0-2); Eosinophils Absolute Auto 0.1 X10*3/uL (0.0-0.4); Eosinophils Percent Auto 0.9 % (0-4); Hematocrit 44.3 % (42.0-52.0); Hemoglobin 15.8 g/dl (14.0-18.0); Imm Gran Abs Auto 0.08 X10*3/uL (0.00-0.03); Imm Gran Pct Auto 0.8 % (0.0-0.4); Lymphocytes Absolute Auto 3.4 X10*3/uL (1.2-4.9); Lymphocytes Percent Auto 34.5 % (20-40); Mean Corpuscular HGB Conc 35.7 g/dl (31.0-36.0); Mean Corpuscular Hemoglobin 31.1 pg (27.0-33.0); Mean Corpuscular Volume 87.2 fL (80.0-98.0); Mean Platelet Volume 10.8 fL (9.4-12.4); Monocytes Absolute Auto 0.4 X10*3/uL (0.1-1.2); Monocytes Percent Auto 3.8 % (2-11); Neutrophils Absolute Auto 5.8 x10*3/uL (2.0-8.3); Neutrophils Percent Auto 59.5 % (45-73); Platelet Count 219 X10*3/uL (160-400); Red Blood Count 5.08 X10*6/uL (4.60-5.80); White Blood Count 9.8 X10*3/uL (4.8-10.8)
[2024-07-11 20:39] LABS: Alanine Aminotransferase 121 U/L (0-40); Albumin Level 4.8 g/dL (3.5-5.0); Alkaline Phosphatase 105 U/L (39-117); Anion Gap 15 (12-20); Aspartate Amino Transferase 76 U/L (5-37); Bilirubin Total 0.3 mg/dL (0.0-1.0); Blood Urea Nitrogen 9 mg/dL (9-16); Calcium 8.9 mg/dL (8.4-10.2); Carbon Dioxide 25 mmol/L (22-29); Chloride 106 mmol/L (96-108); Creatinine Clr Calc Pharmacy 133.1; Estimated Glomerular Filt Rate > 60; Ethanol 269 mg/dL; Glucose Random 133 mg/dL (60-115); Sodium 142 mmol/L (135-145); Total Protein 7.6 g/dL (6.5-8.0)
[2024-07-11 20:44] LABS: Troponin-I High Sensitivity < 2.7 ng/L (<3.5-35.0)
[2024-07-11] MEDS: Nicotine 21 MG PATCH.TD24 TRANSDERMA (21:38)
--- NOTE | 2024-07-11 21:45 | PC.NURSE ---
Patient reports SI with no plan, no HI, patient changed over into behavioral health attire, 1:1 sitter at bedside, blood drawn and sent to lab, EKG completed. Patient reports feeling anxious, noted to be restless. Patient medicated with Lorazepam 2 mg PO with good effect. Patient reports he is daily smoker x 2 packs, Nicotine patch 21 mg applied to left upper arm. Patient is calm, requested a sandwich with kenroy nicole, provided and tolerated well. CIWA 8, provider Alex made aware.
[2024-07-11 21:59] VITALS: BP 114/72; PULSE 110; RESP 18; TEMP 37.1; O2SAT 98
[2024-07-11 22:21] LABS: Amphetamine Screen Urine Not Detected (Not Detect); Barbiturates, Urine POSITIVE (Not Detect); Benzodiazepines Screen Urine Not Detected (Not Detect); Buprenorphine Scr Not Detected (Not Detect); Cannabinoid Screen Urine POSITIVE (Not Detect); Cocaine Screen Urine Not Detected (Not Detect); Fentanyl, urine Not Detected (Not Detect); Methadone Screen, Urine Not Detected (Not Detect); Opiate Screen Urine Not Detected (Not Detect); Oxycodone Screen Urine Not Detected (Not Detect); Phencyclidine Screen Urine Not Detected (Not Detect)
--- NOTE | 2024-07-11 23:15 | PC.NURSE ---
Took over care from MARY KAY Bradford and Caitie at 23:15pm. pt assisted to room,
[2024-07-11] MEDS: Acetaminophen 325 MG TABLET 975 MG PO (23:18)
--- NOTE | 2024-07-11 23:25 | PC.NURSE ---
medicated per apr for headache, pt back in room
[2024-07-12] VITALS (7 sets, daily range): BP systolic 116–146; BP diastolic 73–91; PULSE 86–115; RESP 16–20; TEMP 36.6–37.4; O2SAT 95–98; BMI 27.4
--- NOTE | 2024-07-12 01:19 | PC.NURSE ---
pt sleeping at this time. no sign of distress.
--- NOTE | 2024-07-12 01:28 | ED_ITS ---
HPI - General Adult General Chief complaint: Psychiatric Symptoms Stated complaint: etoh,psych eval Time Seen by Provider: 07/11/24 20:07 Source: patient and EMS Limitations: other (Intoxication) History of Present Illness ED Provider: Anila Johnson PA-C HPI narrative: 33-year-old male with a history of alcohol use disorder, alcoholic gastritis, seizure disorder, presents with SI. Patient states ?I am a failure?. He does not verbalize a specific plan for self-harm. Patient admits to binge drinking over the past 2 days, consuming hard alcohol. Associated marijuana use. Denies HI. History limited as the patient is clinically intoxicated. Related Data Home Medications ?Medication ?Instructions ?Recorded ?Confirmed levothyroxine 75 mcg capsule 75 mcg PO DAILY@0600 09/14/23 07/12/24 Previous Rx's ?Medication ?Instructions ?Recorded folic acid 1 mg tablet 1 mg PO DAILY 30 days #30 tabs 07/18/24 hydroxyzine HCl 25 mg tablet 25 mg PO DAILY PRN mild anxiety 30 07/18/24 days #30 tabs naltrexone 50 mg tablet 50 mg PO DAILY 30 days #30 tabs 07/18/24 nicotine (polacrilex) 2 mg gum 4 mg buccal DAILY PRN Nicotine 07/18/24 Cravings 30 days #100 ea nicotine 21 mg/24 hr daily 21 mg transdermal DAILY PRN 07/18/24 transdermal patch smoking cessation 28 days #28 ea sertraline 50 mg tablet 50 mg PO DAILY 30 days #30 tabs 07/18/24 thiamine mononitrate (vit B1) 100 100 mg PO DAILY 30 days #30 tabs 07/18/24 mg tablet trazodone 50 mg tablet 100 mg (2 x 50 mg) PO BEDTIME 30 07/18/24 days #60 tabs Allergies Allergy/AdvReac Type Severity Reaction Status Date / Time No Known Allergies Allergy Verified 07/11/24 19:52 [No Known Allergies*] Review of Systems 2 Review of Systems: Unable to obtain due to clinical intoxication Yes all other systems are reviewed and are negative PMFSH Past Medical History Attestation statement: The following information was validated with the patient. Medical History Hyponatremia Hypothyroidism Opiate use Psychosis Impulse disorder TBI (traumatic brain injury) Social History Social History Household Members: None Housing: Condominium Housing Other:: [facility] Do you presently have visiting nurse or other home services: No Comment: seizure precautions Patient Tobacco Use Status: Current everyday Tobacco user Tobacco use type: Cigarette Cigarette Packs Per Day: 1 Cigarettes Per Day: 20.0 e-Cigarette/Vaping Use: Currently Using Second Hand Smoke Exposure: No Substance Use Type: Marijuana service: No Sexual orientation: Straight/Heterosexual Physical Exam ED Vital Signs: Vital Signs - 24 hr 07/11/24 19:52 07/11/24 21:59 07/12/24 06:00 Temperature 97.5 F 98.7 F 99.4 F Pulse Rate 101 H 110 H 115 H Respiratory Rate 18 18 18 Blood Pressure 109/69 114/72 137/75 Pulse Oximetry 95 98 96 Oxygen Delivery Method Room Air Room Air Room Air 07/12/24 08:02 Temperature 98.0 F Pulse Rate 109 H Respiratory Rate 16 Blood Pressure 116/73 Pulse Oximetry 95 Oxygen Delivery Method Room Air BMI result Body Mass Index 28.2 Const Other: Alert Orientation/consciousness: patient oriented x3 HENMT Other: Alcohol halitosis Resp Other: Nonlabored respirations Cardio Other: Normal peripheral perfusion Skin Other: Warm dry no rash Neuro General: patient oriented x3, gait normal, no focal motor deficits and CN's II- XI intact bilaterally Psych Other: Initially uncooperative, easily redirectable Course Reevaluation(s) Reevaluation #1: Time: 01:33 Date: 07/12/24 Provider: RUSS Pryor Patient in physician observation for psychiatric evaluation.? No acute events reported overnight. No current complaints. VS stable.? Patient is in bed search status/pending CARE team evaluation. Will continue to monitor. Reevaluation #2: 07/12/2024 DR. Mauro's progress note: VSS, no events reported by nursing overnight, care team input is appreciated, dual diagnosis bed search is underway, continue with physician observation. Time: 08:52 Medications Administered Discontinued Medications Generic Name Dose Route Start Last Admin Trade Name Freq PRN Reason Stop Dose Admin Acetaminophen 975 mg 07/11/24 23:09 07/11/24 23:18 Acetaminophen 325 Mg Tablet PO 07/11/24 23:10 975 mg ONCE ONE Administration Acetaminophen 650 mg 07/12/24 10:37 07/12/24 10:42 Acetaminophen 325 Mg Tablet PO 07/12/24 10:38 650 mg ONCE STA Administration Acetaminophen 650 mg 07/12/24 15:07 07/13/24 20:25 Acetaminophen 325 Mg Tablet PO 650 mg Q6H PRN Administration Headache/Pain, Scale 1-10 Folic Acid 1 mg 07/13/24 09:00 07/19/24 08:58 Folic Acid 1 Mg Tablet PO 1 mg DAILY RAFAEL Administration Folic Acid 1 mg 07/12/24 15:07 07/12/24 15:36 Folic Acid 1 Mg Tablet PO 07/12/24 15:08 1 mg ONCE ONE Administration Gabapentin 300 mg 07/12/24 21:00 07/13/24 08:49 Gabapentin 300 Mg Capsule PO 300 mg TID RAFAEL Administration Gabapentin 300 mg 07/13/24 21:00 07/15/24 09:28 Gabapentin 300 Mg Capsule PO 300 mg BID RAFAEL Administration Gabapentin 200 mg 07/15/24 21:00 07/16/24 21:15 Gabapentin 100 Mg Capsule PO 07/16/24 21:01 200 mg BID RAFAEL Administration Gabapentin 100 mg 07/17/24 09:00 07/18/24 21:24 Gabapentin 100 Mg Capsule PO 07/18/24 21:01 100 mg BID RAFAEL Administration Hydroxyzine HCl 25 mg 07/12/24 15:07 07/19/24 10:22 Hydroxyzine Hcl 25 Mg Tablet PO 25 mg Q6H PRN Administration mild anxiety Lorazepam 2 mg 07/11/24 20:08 07/11/24 20:16 Lorazepam 1 Mg Tablet PO 07/11/24 20:09 2 mg ONCE ONE Administration Lorazepam 2 mg 07/12/24 06:17 07/12/24 10:41 Lorazepam 1 Mg Tablet PO 2 mg RQ4H WHILE AWAKE PRN Administration Alcohol Withdrawal Lorazepam 1 mg 07/12/24 21:00 07/15/24 09:28 Lorazepam 1 Mg Tablet PO 1 mg TID RAFAEL Administration Lorazepam 1 mg 07/15/24 21:00 07/16/24 08:02 Lorazepam 1 Mg Tablet PO 07/16/24 09:01 1 mg BID RAFAEL Administration Lorazepam 0.5 mg 07/16/24 21:00 07/18/24 09:18 Lorazepam 0.5 Mg Tablet PO 07/18/24 09:01 0.5 mg BID RAFAEL Administration Naltrexone HCl 25 mg 07/15/24 12:15 07/17/24 08:37 Naltrexone Hcl 50 Mg Tablet PO 07/17/24 09:01 25 mg DAILY RAFAEL Administration Naltrexone HCl 50 mg 07/18/24 09:00 07/19/24 08:58 Naltrexone Hcl 50 Mg Tablet PO 50 mg DAILY RAFAEL Administration Nicotine 21 mg 07/11/24 20:54 07/11/24 21:38 Nicotine 21 Mg Patch.Td24 TRANSDERMA 07/11/24 20:55 21 mg ONCE ONE Administration Nicotine 21 mg 07/12/24 15:07 07/18/24 09:20 Nicotine 21 Mg Patch.Td24 TRANSDERMA 21 mg DAILY PRN Administration smoking cessation Nicotine Polacrilex 4 mg 07/12/24 15:07 07/14/24 10:39 Nicotine Polacrilex 2 Mg Gum BUCCAL 4 mg Q2H PRN Administration Nicotine Cravings Olanzapine 5 mg 07/12/24 15:07 07/16/24 13:12 Olanzapine 5 Mg Tablet PO 5 mg TID PRN Administration agitation Ondansetron HCl 8 mg 07/12/24 03:30 07/12/24 03:32 Ondansetron Odt 8 Mg Tab.Rapdis TRANSLINGU 07/12/24 03:31 8 mg ONCE ONE Administration Ondansetron HCl 4 mg 07/12/24 10:46 07/12/24 10:48 Ondansetron Odt 4 Mg Tab.Rapdis TRANSLINGU 07/12/24 10:47 4 mg ONCE STA Administration Sertraline HCl 50 mg 07/14/24 12:00 07/14/24 13:58 Sertraline Hcl 50 Mg Tablet PO 07/14/24 12:01 50 mg ONCE ONE Administration Sertraline HCl 50 mg 07/15/24 09:00 07/19/24 08:58 Sertraline Hcl 50 Mg Tablet PO 50 mg DAILY RAFAEL Administration Thiamine HCl 100 mg 07/12/24 15:15 07/19/24 08:58 Thiamine Hcl 100 Mg Tablet PO 100 mg DAILY RAFAEL Administration Trazodone HCl 50 mg 07/12/24 15:07 07/14/24 20:59 Trazodone Hcl 50 Mg Tablet PO 50 mg BEDTIME MRX1 PRN Administration Insomnia Trazodone HCl 50 mg 07/15/24 10:56 07/18/24 21:24 Trazodone Hcl 50 Mg Tablet PO 50 mg BEDTIME PRN Administration Insomnia Trazodone HCl 50 mg 07/15/24 21:00 07/18/24 21:23 Trazodone Hcl 50 Mg Tablet PO 50 mg BEDTIME RAFAEL Administration Medical Decision Making Medical Decision Making [facility] Narrative: 33-year-old male with a history of alcohol use disorder, alcoholic gastritis, seizure disorder, presents with SI. Patient states ?I am a failure?. He does not verbalize a specific plan for self-harm. Patient admits to binge drinking over the past 2 days, consuming hard alcohol. Associated marijuana use. Denies HI. History limited as the patient is clinically intoxicated. Problem: Alcohol use disorder, seizure disorder History: Per patient I have considered the following differential diagnoses: SI, HI, decompensated psychiatric illness, drug/alcohol intoxication Plan: Screening labs including ethanol and drug screen we will be obtained. We will be placing a consult for the care team and the cryolite recovery operator. The patient will likely not have his assessment overnight given he is clinically intoxicated. Patient was initially somewhat belligerent on arrival, we will be giving him 2 mg of p.o. Ativan. We will place a CIWA scale I have independently reviewed the following tests: Labs: No leukocytosis, not anemic, no electrolyte abnormalities, ethanol 269, drug screen positive for barbiturates and marijuana Lab Data 07/11/24 20:15 07/13/24 07:51 Labs: Lab Results 07/11/24 07/11/24 Range/Units 20:15 22:04 WBC 9.8 (4.8-10.8) X10*3/uL RBC 5.08 (4.60-5.80) X10*6/uL Hgb 15.8 (14.0-18.0) g/dl Hct 44.3 (42.0-52.0) % MCV 87.2 (80.0-98.0) fL MCH 31.1 (27.0-33.0) pg MCHC 35.7 (31.0-36.0) g/dl RDW 13.0 (11.0-16.0) % Plt Count 219 D (160-400) X10*3/uL MPV 10.8 (9.4-12.4) fL Immature Gran % (Auto) 0.8 H (0.0-0.4) % Neut % (Auto) 59.5 (45-73) % Lymph % (Auto) 34.5 (20-40) % Whitman % (Auto) 3.8 (2-11) % Eos % (Auto) 0.9 (0-4) % Baso % (Auto) 0.5 (0-2) % Lymph # (Auto) 3.4 (1.2-4.9) X10*3/uL Whitman # (Auto) 0.4 (0.1-1.2) X10*3/uL Eos # (Auto) 0.1 (0.0-0.4) X10*3/uL Baso # (Auto) 0.1 (0.0-0.2) X10*3/uL Abs Immat Gran (auto) 0.08 H (0.00-0.03) X10*3/uL Absolute Neuts (auto) 5.8 (2.0-8.3) x10*3/uL Absolute Nucleated RBC 0.000 (0.0-0.012) X10*3/uL Nucleated RBC % (auto) 0.0 (0.0-0.2) /100WBC Sodium 142 (135-145) mmol/L Potassium 4.0 (3.3-5.1) mmol/L Chloride 106 (96-108) mmol/L Carbon Dioxide 25 (22-29) mmol/L Anion Gap 15 (12-20) BUN 9 (9-16) mg/dL Creatinine 0.87 (0.5-1.4) mg/dL Estim Creat Clear Calc 133.1 Estimated GFR > 60 Random Glucose 133 H (60-115) mg/dL Calcium 8.9 D (8.4-10.2) mg/dL Total Bilirubin 0.3 (0.0-1.0) mg/dL AST 76 H (5-37) U/L ALT 121 H (0-40) U/L Alkaline Phosphatase 105 (39-117) U/L Troponin I High Sens < 2.7 (<3.5-35.0) ng/L Total Protein 7.6 (6.5-8.0) g/dL Albumin 4.8 (3.5-5.0) g/dL Urine Color Yellow Urine Appearance Clear Urine pH 7.0 (5.0-9.0) Ur Specific [place] 1.020 (1.005-1.025) Urine Protein Negative (Neg-Trace) mg/dL Urine Glucose (UA) Negative (Negative) mg/dL Urine Ketones Trace (Negative) mg/dL Urine Blood Negative (Negative) Urine Nitrite Negative (Negative) Ur Leukocyte Esterase Negative (Negative) Urine Opiates Screen Not Detected (Not Detect) Ur Buprenorphine Scrn Not Detected (Not Detect) ng/mL Ur Oxycodone Screen Not Detected (Not Detect) ng/mL Urine Methadone Screen Not Detected (Not Detect) ng/mL Urine Fentanyl Screen Not Detected (Not Detect) Ur Barbiturates Screen POSITIVE H (Not Detect) Ur Phencyclidine Scrn Not Detected (Not Detect) Ur Amphetamines Screen Not Detected (Not Detect) U Benzodiazepines Scrn Not Detected (Not Detect) Urine Cocaine Screen Not Detected (Not Detect) U Marijuana (THC) Screen POSITIVE H (Not Detect) Ethyl Alcohol 269 mg/dL Discharge Plan Discharge Clinical Impression: Suicidal ideation, Alcohol use disorder Patient Disposition: Admitted As Inpatient Interventions: Admission Worksheet (ED) Last Done: 07/12/24 15:50 Discharge Date/Time: 07/12/24 16:02
--- NOTE | 2024-07-12 03:01 | PC.NURSE ---
Pt sitting up in bed, water given.
[2024-07-12] MEDS: Ondansetron ODT 8 MG TAB.RAPDIS TRANSLINGU (03:32)
--- NOTE | 2024-07-12 03:39 | PC.NURSE ---
medicated for nausea.
--- NOTE | 2024-07-12 04:55 | PC.NURSE ---
pt sleeping at this time. no longer having nausea.
[2024-07-12] MEDS: LORazepam 1 MG TABLET 2 MG PO ×2 (06:24→10:41)
--- NOTE | 2024-07-12 06:27 | PC.NURSE ---
Notified provider of heart rate, Medicated 2mg of Ativan.
--- NOTE | 2024-07-12 08:03 | PC.NURSE ---
Pt has been sleeping since this RN arrival at 7am. When awakened for VS is calm, cooperative. no tremor. States he has not had hx of withdrawl Sz. Currently is with CARE associate team physician.
--- NOTE | 2024-07-12 08:36 | MHC.CARE ---
Pt will be a Dual DX bedsearch.?
[2024-07-12] MEDS: Acetaminophen 325 MG TABLET 650 MG PO (10:42)
--- NOTE | 2024-07-12 10:44 | PC.NURSE ---
states he's having increased withdrawal sx and that he vomited in the BR. Reports increased tremor but none is visable. Doc [facility] in pod for evaluation. Gives verbal consent for ALAN Grayson.
[2024-07-12] MEDS: Ondansetron ODT 4 MG TAB.RAPDIS TRANSLINGU (10:48)
[2024-07-12 10:51] LABS: Appearance Urine Clear; Color Urine Yellow; Glucose Urine UA Negative (Negative); Leukocyte Esterase Urine Negative (Negative); Nitrite Urine Negative (Negative); Urine Blood Negative (Negative); Urine Ketones Trace mg/dL (Negative); Urine Protein Negative (Neg-Trace)
--- NOTE | 2024-07-12 13:07 | PHA.MEDREC ---
Pharmacy Consult ? Medication Reconciliation Pharmacy has completed the medication reconciliation. RN confirmed with the patient: The only med he's taking is levothyroxine which is prescribed by Dr Jarquin and picked up at [facility] in [place]. He just stopped taking everything else over a month ago.
--- NOTE | 2024-07-12 14:25 | PC.NURSE ---
Pt out of his room to play [employer]. No tremor
[2024-07-12] MEDS: Folic Acid 1 MG TABLET PO (15:36)
[2024-07-12] MEDS: Thiamine HCL 100 MG TABLET PO (15:36)
--- NOTE | 2024-07-12 15:56 | PC.NURSE ---
Patient's belongings list not completed upon gathering his belongings from secured locker. Belongings list done by this RN by evaluating bag from exterior of bag. List signed & placed in chart.
--- NOTE | 2024-07-12 17:18 | PC.ADMIT ---
Franky arrived via wheelchair from [facility] pod. He prefers he/him pronouns. He is oriented x4 and was cooperative with skin/safety check was unremarkable. He reports hx of eczema but no was seen currently. He self presented to the ED to try something different instead of trying to quit drinking on my own . He states he was inpatient here until Thursday07/10/24 for etoh withdrawal. He was discharged and spent the next 36 hours drinking 16-20 shots per day. He states I try to drink 20 shots a day . He has experienced etoh withdrawal in the past, denies withdrawal seizures. Franky has had inpatient detox a few times in the past. He reports worsening anxiety/depression, mostly related to his alcohol use. He states I want to do things without my parents input. We are trying to dissolve the guardianship, it was set up when I got the tbi . He signed the CV with Dr Peralta. 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 He is a one ppd nicotine smoker and uses marijuana. He wants NRT, declined quitworks. He is open to meeting with addiction consults. His utox was positive for cannabis and barbiturates. He denies urges to harm self or others and any visual or perceptual disturbances. He is on 15 minute safety checks.
[2024-07-12] MEDS: LORazepam 1 MG TABLET PO (20:28)
[2024-07-12] MEDS: Gabapentin 300 MG CAPSULE PO (20:28)
[2024-07-13 08:00] VITALS: RESP 18
[2024-07-13 08:36] LABS: Estimated Average Glucose 111 mg/dL; Hemoglobin A1C 140.9853 umol/L; Hemoglobin A1c % 5.5 % (<6.0); Total Hemoglobin (HGBA1C) 3871.9877 umol/L
[2024-07-13 08:37] LABS: Alanine Aminotransferase 81 U/L (0-40); Albumin Level 4.5 g/dL (3.5-5.0); Alkaline Phosphatase 99 U/L (39-117); Anion Gap 13 (12-20); Aspartate Amino Transferase 36 U/L (5-37); Bilirubin Total 0.3 mg/dL (0.0-1.0); Blood Urea Nitrogen 14 mg/dL (9-16); Calcium 9.4 mg/dL (8.4-10.2); Carbon Dioxide 27 mmol/L (22-29); Chloride 105 mmol/L (96-108); Cholesterol 173 mg/dL (<200); Creatinine Clr Calc Pharmacy 120.9; Estimated Glomerular Filt Rate > 60; Glucose Random 115 mg/dL (60-115); HDL Cholesterol 47 mg/dL (>40); LDL Cholesterol Calculated 56 mg/dL (<100); Potassium 3.9 mmol/L (3.3-5.1); Sodium 141 mmol/L (135-145); Total Protein 6.8 g/dL (6.5-8.0); Triglycerides 351 mg/dL (<150)
[2024-07-13] MEDS: Thiamine HCL 100 MG TABLET PO (08:49)
[2024-07-13] MEDS: LORazepam 1 MG TABLET PO ×3 (08:49→19:59)
[2024-07-13] MEDS: Gabapentin 300 MG CAPSULE PO ×2 (08:49→19:59)
[2024-07-13] MEDS: Folic Acid 1 MG TABLET PO (08:49)
[2024-07-13 08:52] LABS: TSH reflex Free T4 2.22 uIU/mL (0.32-4.0)
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
[2024-07-13 19:48] VITALS: BP 134/86; PULSE 71; RESP 15; TEMP 36.4; O2SAT 97
[2024-07-13] MEDS: Acetaminophen 325 MG TABLET 650 MG PO (20:25)
[2024-07-14 07:00] VITALS: BMI 28.0
[2024-07-14 08:30] VITALS: BP 129/82; PULSE 85; RESP 18; TEMP 36.7; O2SAT 97
[2024-07-14] MEDS: LORazepam 1 MG TABLET PO ×3 (08:55→20:59)
[2024-07-14] MEDS: Gabapentin 300 MG CAPSULE PO ×2 (08:55→20:59)
[2024-07-14] MEDS: Thiamine HCL 100 MG TABLET PO (08:55)
[2024-07-14] MEDS: Folic Acid 1 MG TABLET PO (08:55)
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
[2024-07-14] MEDS: Nicotine Polacrilex 2 MG GUM 4 MG BUCCAL (10:39)
[2024-07-14] MEDS: Nicotine 21 MG PATCH.TD24 TRANSDERMA (11:14)
[2024-07-14] MEDS: hydrOXYzine HCL 25 MG TABLET PO (11:14)
[2024-07-14] MEDS: Sertraline HCL 50 MG TABLET PO (13:58)
[2024-07-14 20:00] VITALS: BP 143/89; PULSE 88; TEMP 36.6; O2SAT 97
[2024-07-14] MEDS: traZODone HCL 50 MG TABLET PO (20:59)
[2024-07-15 08:00] VITALS: BP 123/74; PULSE 84; RESP 15; TEMP 36.6; O2SAT 97
[2024-07-15] MEDS: Nicotine 21 MG PATCH.TD24 TRANSDERMA (09:27)
[2024-07-15] MEDS: Folic Acid 1 MG TABLET PO (09:28)
[2024-07-15] MEDS: Thiamine HCL 100 MG TABLET PO (09:28)
[2024-07-15] MEDS: Sertraline HCL 50 MG TABLET PO (09:28)
[2024-07-15] MEDS: LORazepam 1 MG TABLET PO ×2 (09:28→21:20)
[2024-07-15] MEDS: Gabapentin 300 MG CAPSULE PO (09:28)
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
[2024-07-15] MEDS: Naltrexone HCl 50 MG TABLET 25 MG PO (12:21)
--- NOTE | 2024-07-15 14:42 | MHC.RECOVRN ---
Pt seen on 07/08/2024 while inpatient on the medical floor and referral was made to Recovery Coaching with the [facility].
--- NOTE | 2024-07-15 14:46 | MHC.RECOVRN ---
Pt seen on 07/08/2024 while inpatient on the medical floor and referral was made to Recovery Coaching with the [facility].
[2024-07-15 20:00] VITALS: BP 127/82; PULSE 69; RESP 16; TEMP 36.4; O2SAT 97
[2024-07-15] MEDS: Gabapentin 100 MG CAPSULE 200 MG PO (21:19)
[2024-07-15] MEDS: traZODone HCL 50 MG TABLET PO ×2 (21:20)
[2024-07-16 08:00] VITALS: BP 128/78; PULSE 67; RESP 16; TEMP 36.8; O2SAT 96
[2024-07-16] MEDS: Thiamine HCL 100 MG TABLET PO (08:02)
[2024-07-16] MEDS: Sertraline HCL 50 MG TABLET PO (08:02)
[2024-07-16] MEDS: Gabapentin 100 MG CAPSULE 200 MG PO ×2 (08:02→21:15)
[2024-07-16] MEDS: Folic Acid 1 MG TABLET PO (08:02)
[2024-07-16] MEDS: Naltrexone HCl 50 MG TABLET 25 MG PO (08:02)
[2024-07-16] MEDS: LORazepam 1 MG TABLET PO (08:02)
[2024-07-16] MEDS: Nicotine 21 MG PATCH.TD24 TRANSDERMA (08:30)
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
[2024-07-16] MEDS: OLANZapine 5 MG TABLET PO (13:12)
[2024-07-16 20:00] VITALS: BP 130/81; PULSE 94; RESP 16; TEMP 37.1; O2SAT 97
[2024-07-16] MEDS: traZODone HCL 50 MG TABLET PO ×2 (21:14)
[2024-07-16] MEDS: LORazepam 0.5 MG TABLET PO (21:14)
[2024-07-17 08:00] VITALS: BP 130/66; PULSE 90; RESP 14; TEMP 36.6; O2SAT 94
[2024-07-17] MEDS: Nicotine 21 MG PATCH.TD24 TRANSDERMA (08:36)
[2024-07-17] MEDS: LORazepam 0.5 MG TABLET PO ×2 (08:37→21:44)
[2024-07-17] MEDS: Folic Acid 1 MG TABLET PO (08:37)
[2024-07-17] MEDS: Sertraline HCL 50 MG TABLET PO (08:37)
[2024-07-17] MEDS: Naltrexone HCl 50 MG TABLET 25 MG PO (08:37)
[2024-07-17] MEDS: Thiamine HCL 100 MG TABLET PO (08:37)
[2024-07-17] MEDS: Gabapentin 100 MG CAPSULE PO ×2 (08:37→21:43)
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
[2024-07-17] MEDS: hydrOXYzine HCL 25 MG TABLET PO (13:02)
[2024-07-17 19:59] VITALS: BP 144/82; PULSE 91; TEMP 36.8; O2SAT 96
[2024-07-17] MEDS: traZODone HCL 50 MG TABLET PO ×2 (21:44→21:45)
[2024-07-18 08:00] VITALS: BP 120/73; PULSE 90; RESP 18; TEMP 36.7; O2SAT 97
[2024-07-18] MEDS: Sertraline HCL 50 MG TABLET PO (09:18)
[2024-07-18] MEDS: LORazepam 0.5 MG TABLET PO (09:18)
[2024-07-18] MEDS: Naltrexone HCl 50 MG TABLET PO (09:18)
[2024-07-18] MEDS: Gabapentin 100 MG CAPSULE PO ×2 (09:18→21:24)
[2024-07-18] MEDS: Folic Acid 1 MG TABLET PO (09:18)
[2024-07-18] MEDS: Thiamine HCL 100 MG TABLET PO (09:19)
[2024-07-18] MEDS: Nicotine 21 MG PATCH.TD24 TRANSDERMA (09:20)
[2024-07-18] MEDS: hydrOXYzine HCL 25 MG TABLET PO (14:54)
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
[2024-07-18] MEDS: traZODone HCL 50 MG TABLET PO ×2 (21:23→21:24)
[2024-07-18 21:45] VITALS: BP 154/87; PULSE 96; TEMP 36.6; O2SAT 96
[2024-07-19] MEDS: Thiamine HCL 100 MG TABLET PO (08:58)
[2024-07-19] MEDS: Folic Acid 1 MG TABLET PO (08:58)
[2024-07-19] MEDS: Naltrexone HCl 50 MG TABLET PO (08:58)
[2024-07-19] MEDS: Sertraline HCL 50 MG TABLET PO (08:58)
[2024-07-19 09:17] VITALS: BP 128/74; PULSE 79; RESP 18; TEMP 36.4; O2SAT 97
[2024-07-19] MEDS: hydrOXYzine HCL 25 MG TABLET PO (10:22)
== END 2024-07-19 11:05 | disposition home or self-care (01) | DRG 754 ==
LOC: HO.ED 23:01 → HO.PM5 07-12 15:31
PROVIDERS: Admitting Provider Psychiatry & Neurology Psychiatry; Emergency Provider Emergency Medicine; Visit Provider Psychiatry & Neurology Psychiatry
DX: F32.9 Major depressive disorder, single episode, unspecified (principal); R45.851 Suicidal ideations; E03.9 Hypothyroidism, unspecified; F10.929 Alcohol use, unspecified with intoxication, unspecified; F17.210 Nicotine dependence, cigarettes, uncomplicated; Y90.8 Blood alcohol level of 240 mg/100 ml or more; Z71.6 Tobacco abuse counseling; Z87.820 Personal history of traumatic brain injury; Z79.890 Hormone replacement therapy; Z79.899 Other long term (current) drug therapy
CPT/HCPCS: 36415; 80053; 80061; 80307; 81003; 83036; 84443; 84484; 85025; 93005; 99285; S9485

== ENCOUNTER → 2024-07-11 20:03 | Outpatient (BNV) | payer MEDICAID, SELFPAY | PROVIDERS: Emergency Provider Emergency Medicine; Visit Provider Internal Medicine Cardiovascular Disease | DX: R00.0 Tachycardia, unspecified (principal) | CPT/HCPCS: 93010 ==

== ENCOUNTER → 2024-07-12 15:29 | Outpatient (BNV) | payer OTHER, SELFPAY | PROVIDERS: Admitting Provider Psychiatry & Neurology Psychiatry; Emergency Provider Emergency Medicine; Visit Provider Nurse Practitioner Family | DX: F32.2 Major depressive disorder, single episode, severe without psychotic features (principal); F10.90 Alcohol use, unspecified, uncomplicated | CPT/HCPCS: 99232 ==

== ENCOUNTER 2024-12-12 20:15 | Emergency (ER) | payer MEDICAID, SELFPAY ==
--- NOTE | ~2024-12-12 | XR_ITS ---
CLINICAL HISTORY: pain heard pop 2 view right forearm Comparison: None provided Findings: No fractures or dislocations. No joint effusion. No significant arthritic change. No radiopaque foreign body. IMPRESSION: 1. Normal right forearm This document has been electronically signed by: Junior Hong MD on 12/12/2024 21:05:53
--- NOTE | ~2024-12-12 | XR_ITS ---
CLINICAL HISTORY: pain heard pop 4 view right wrist Comparison: None provided Findings: No acute fracture or dislocation. There is dorsal soft tissue swelling. There is narrowing of the radiocarpal joint space. No joint dislocation. No radiopaque foreign body. IMPRESSION: Narrowing of the radiocarpal joint space without acute fracture or dislocation. This document has been electronically signed by: Junior Hong MD on 12/12/2024 21:08:21
[2024-12-12 20:18] VITALS: BP 165/84; PULSE 76; RESP 16; TEMP 36.6; O2SAT 100; BMI 25.8
--- NOTE | 2024-12-12 20:24 | PC.NURSE ---
cap refill <2 seconds, +radial pulse, skin wpd. xr ordered.
--- OUTSIDE RECORDS SUMMARY | 2024-12-12 21:32 | XMS_ITS | Clinical Summary ---
Author Organization [employer] Address [address] [place] [address] Care Team Providers Care Chief Privacy Officer Name Role Phone Unavailable Primary Care Provider Unavailabl e Encounters Date Type Department Care Team Description 11/03/[address] [facility] [address] [place] [id number] Zach Carmona MD Care Coordination (Cm/chw outreach) from Last 3 Months Social History Tobacco Use Types Packs/Day Years Used Date Smoking Tobacco: Never Assessed Comments Unknown Sex and Gender Information Value Date Recorded Sex Assigned at Unknown 08/01/2024 9:26 AM EDT Legal Sex Male 10:25 AM EST Gender Identity Choose not to disclose 9:26 AM EDT Sexual Orientation Don't know 08/01/2024 9: 26 AM EDT Plan of Treatment Health Maintenance Due Date Last Done Comments Depression Screening 1988 HIV Screening 1988 Lipid Panel 1988 SDOH Screening 1988 Disability Screening 1988 Alcohol/Substance Use Screening 2000 Tobacco Screening 2000 Family Planning (PISQ) 10/28/2003 HPV Vaccines (1 - 3-dose series) 10/28/2003 DTaP/Tdap/Td Vaccines (3 - Tdap) 08/09/2004 08/08/2004, 08/08/2003 Hepatitis C Screening 2006 Hepatitis B Vaccines (1 of 3 - 19+ 3-dose series) 10/28/2007 COVID-19 Vaccine ( - 2023-2 5 season) 2024 Influenza Vaccine (#1) 2024 Zoster Vaccines (1 of 2) 2038 RSV Patients and Patients Aged 60 years or older (1 - 1-dose 75+ series) 10/28/2063 Meningococcal Vaccine Aged Out 07/23/2006 No sebastien april eligible based on patient's age to complete this topic HIB Vaccines Aged Out No longer eligi ble based on patient's age to complete this topic Hepatitis A Vaccines Aged Out No long er eligible based on patient's age to complete this topic IPV Vaccines Aged Out No longer eligi ble based on patient's age to complete this topic Meningococcal B Vaccine Aged Out No l onger eligible based on patient's age to complete this topic Pneumococcal Vaccine: Pediatrics (0 to 5 Years) and At-Risk Patients (6 to 49) Years Aged Out No longer eligible b ased on patient's age to complete this topic RSV under 20 months Aged Out No longe r eligible based on patient's age to complete this topic Rotavirus Vaccines Aged Out No longer eligible based on patient's age to complete this topic Insurance [facility] C3
[2024-12-13 00:19] VITALS: BP 130/88; PULSE 65; RESP 16; TEMP 36.9; O2SAT 98
--- NOTE | 2024-12-13 00:25 | ED.EXTPRO ---
HPI - Extremity Problem General Chief complaint: Extremity Injury, Upper Stated complaint: ? rt arm fracture, pain Time Seen by Provider: 12/13/24 00:22 Source: patient Mode of arrival: ambulatory Limitations: no limitations History of Present Illness ED Provider: Fleiz SOLANO HPI Narrative: The patient is a 34-year-old male presenting to the ED reporting earlier today he was shaking someone's hand when he felt a pop in his right forearm followed by flexion and ulnar deviation of his right hand with constant extension of his right fingers, patient reports since straightening his hand to place it on the x-ray table it has been fixed in a straight position without wrist drop, however patient reports inability to close his fist. Related Data Home Medications ?Medication ?Instructions ?Recorded ?Confirmed levothyroxine 75 mcg capsule 75 mcg PO DAILY@0600 09/14/23 07/12/24 Previous Rx's ?Medication ?Instructions ?Recorded folic acid 1 mg tablet 1 mg PO DAILY 30 days #30 tabs 07/18/24 hydroxyzine HCl 25 mg tablet 25 mg PO DAILY PRN mild anxiety 30 07/18/24 days #30 tabs naltrexone 50 mg tablet 50 mg PO DAILY 30 days #30 tabs 07/18/24 nicotine (polacrilex) 2 mg gum 4 mg buccal DAILY PRN Nicotine 07/18/24 Cravings 30 days #100 ea nicotine 21 mg/24 hr daily 21 mg transdermal DAILY PRN 07/18/24 transdermal patch smoking cessation 28 days #28 ea sertraline 50 mg tablet 50 mg PO DAILY 30 days #30 tabs 07/18/24 thiamine mononitrate (vit B1) 100 100 mg PO DAILY 30 days #30 tabs 07/18/24 mg tablet trazodone 50 mg tablet 100 mg (2 x 50 mg) PO BEDTIME 30 07/18/24 days #60 tabs acetaminophen 500 mg capsule 1,000 mg (2 x 500 mg) PO .q8 PRN 12/13/24 fever or pain #30 caps ibuprofen 600 mg tablet 600 mg PO Q8H PRN fever or pain 12/13/24 #30 tabs Allergies Allergy/AdvReac Type Severity Reaction Status Date / Time No Known Allergies (No Known Allergy Verified 12/12/24 20:21 Allergies*) Review of Systems Review of Systems: Yes all other systems are reviewed and are negative PMFSH Past Medical History Medical History Hyponatremia Hypothyroidism Opiate use Psychosis Impulse disorder TBI (traumatic brain injury) Social History Social History Household Members: None Housing: Condominium Housing Other:: [facility] Do you presently have visiting nurse or other home services: No Comment: seizure precautions Patient Tobacco Use Status: Current everyday Tobacco user Tobacco use type: Cigarette Cigarette Packs Per Day: 1 Cigarettes Per Day: 20.0 e-Cigarette/Vaping Use: Currently Using Second Hand Smoke Exposure: No Substance Use Type: Marijuana Advance Directives: No Advance Directives Information Provided: No Do you have a plan to hurt others: No Plan service: No Sexual orientation: Straight/Heterosexual Physical Exam Vital Signs: Vital Signs: Last Vital Signs Temp 98.4 F 12/13/24 00:19 Pulse 65 12/13/24 00:19 Resp 16 12/13/24 00:19 BP 130/88 12/13/24 00:19 Pulse Ox 98 12/13/24 00:19 O2 Del Method Room Air 12/13/24 00:19 BMI result Body Mass Index 25.8 CONSTITUTIONAL: The patient appears non-toxic, well nourished and in no acute distress. Vital signs as documented. HEAD: Atraumatic, normocephalic. EYES: EOMs grossly intact, pupils equal, conjunctiva clear, no exudate. ENT: Nares patent, no discharge. Airway patent, no audible stridor, visible mucosa is pink and moist without noted lesions. NECK: trachea is midline, no obvious masses or gross abnormalities. CHEST: Symmetric movement, normal appearance. LUNGS: Non-labored work of breathing. CARDIAC: No evidence of hypoperfusion. ABDOMEN: Nondistended, no obvious injury. : Deferred. EXTREMITIES: The patient's right wrist demonstrates swelling over the dorsal aspect of the radial wrist, with forced ulnar deviation. The patient reports he is unable to move the fingers or wrist in any direction, however reports passive extension of the wrist improves pain, and passive flexion worsens pain. The patient denies any pain with ulnar or radial manipulation, reports he is unable to make a fist, however when the hand is made into a fist passively by this provider, the patient denies any increased pain, and is able to fully extend all 5 fingers back to a straight position. The patient has no snuffbox tenderness, only tenderness over the localized swelling of the radial dorsal wrist. Moves all other extremities spontaneously without reported pain. No obvious injury or deformity noted. NEURO: Alert and oriented x3, CN II-XII appear grossly intact. Cerebellar Functioning grossly intact. Speech clear and appropriate. SKIN: Warm, dry, color appropriate. No rashes or lesions noted. Medical Decision Making Medical Decision Making MDM Narrative: 1:16 AM 12/13/2024 (Cayetano SOLANO): The patient is a 34-year-old male presenting to the ED reporting earlier today he was shaking someone's hand when he felt a pop in his right forearm followed by flexion and ulnar deviation of his right hand with constant extension of his right fingers, patient reports since straightening his hand to place it on the x-ray table it has been fixed in a straight position without wrist drop, however patient reports inability to close his fist. The patient's right wrist demonstrates swelling over the dorsal aspect of the radial wrist, with forced ulnar deviation. The patient reports he is unable to move the fingers or wrist in any direction, however reports passive extension of the wrist improves pain, and passive flexion worsens pain. The patient denies any pain with ulnar or radial manipulation, reports he is unable to make a fist, however when the hand is made into a fist passively by this provider, the patient denies any increased pain, and is able to fully extend all 5 fingers back to a straight position. The patient has no snuffbox tenderness, only tenderness over the localized swelling of the radial dorsal wrist. Patient's exam does not fit exclusively with extension tendon rupture, radial nerve palsy, median nerve palsy, ulnar nerve palsy, or other definitive injury. The patient's x-ray shows no evidence of acute fracture, there is note made of narrowing of the radiocarpal joint. The patient will be treated with a thumb spica splint, and discharged with instructions to follow up with Orthopedics by calling tomorrow for an appointment. Discharge Plan Discharge Clinical Impression: Sprain and strain of wrist Patient Disposition: Home, Self-Care Instructions: Wrist Injury (ED), Wrist Sprain (ED) Additional Instructions: Thank you for choosing [facility]'s Emergency Department for your care today. Thankfully your x-ray today showed no evidence of acute fracture. At this time there is no indication for admission to the hospital or continued ED observation, and it is safe to discharge you home. Your exam today is not consistent with a clear cause for your symptoms, you may be suffering from a tendon injury or possibly nerve injury, however seeing as you have good sensation and blood flow to your fingers, there was no indication for emergent intervention tonight. It is extremely important however that you follow up with the orthopedic clinic for re-evaluation of your symptoms and additional outpatient imaging or intervention as deemed appropriate. Please call the orthopedic clinic tomorrow using the number provided, to schedule follow up this week. We have placed you in a splint, please wear the splint until follow up with the orthopedic clinic. You should take alternating (staggered) doses of ibuprofen 600mg and Tylenol 1000mg every 4 hours as needed for any additional pain. Please rest the injured area, and apply ice for 20 minutes every hour. Please also follow up with your primary care physician for re-evaluation, additional management of your symptoms, and continued preventative care. If you do not have a primary care physician, please call the [facility] at [phone] to establish a new primary care physician. While waiting to establish your new primary care physician, you can call our Walk-in Care Clinic at [phone] for non-emergency needs. Please return to the emergency department if you develop a severe or sudden change in your symptoms, a fever over 100.4 that does not improve with Tylenol or Ibuprofen, recurrent vomiting, or any other new or worsening symptoms or concerns. Prescriptions: New ibuprofen 600 mg tablet 600 mg PO Q8H PRN (Reason: fever or pain) Qty: 30 0RF acetaminophen 500 mg capsule 1,000 mg PO .q8 PRN (Reason: fever or pain) Qty: 30 0RF No Action nicotine (polacrilex) 2 mg Gum 4 mg buccal DAILY PRN (Reason: Nicotine Cravings) 30 Days Qty: 100 0RF nicotine 21 mg/24 hr Patch 24 Hour 21 mg transdermal DAILY PRN (Reason: smoking cessation) 28 Days Qty: 28 0RF trazodone 50 mg Tablet 100 mg PO BEDTIME 30 Days Qty: 60 0RF naltrexone 50 mg Tablet 50 mg PO DAILY 30 Days Qty: 30 0RF folic acid 1 mg Tablet 1 mg PO DAILY 30 Days Qty: 30 0RF hydroxyzine HCl 25 mg Tablet 25 mg PO DAILY PRN (Reason: mild anxiety) 30 Days Qty: 30 0RF sertraline 50 mg Tablet 50 mg PO DAILY 30 Days Qty: 30 0RF thiamine mononitrate (vit B1) 100 mg Tablet 100 mg PO DAILY 30 Days Qty: 30 0RF levothyroxine 75 mcg capsule 75 mcg PO DAILY@0600 Referrals: Chavo-Janki,Adry, EXTRUSION MANAGER [Primary Care Provider, Nursing] Clinical Impression: Sprain and strain of wrist [facility] [Provider Group] Clinical Impression: Sprain and strain of wrist Print Language: Slovak
[2024-12-13 01:54] VITALS: BP 130/88; PULSE 65; RESP 16; TEMP 36.9; O2SAT 98
== END 2024-12-13 01:55 | disposition home or self-care (01) ==
PROVIDERS: Emergency Provider Emergency Medicine; PCP Nurse Practitioner Family
DX: S63.501A Unspecified sprain of right wrist, initial encounter (principal); M79.631 Pain in right forearm; F17.210 Nicotine dependence, cigarettes, uncomplicated; X58.XXXA Exposure to other specified factors, initial encounter; Y93.9 Activity, unspecified; Y92.9 Unspecified place or not applicable; Y99.8 Other external cause status; Z79.899 Other long term (current) drug therapy
CPT/HCPCS: 29125; 73090; 73110; 99283; 99284

== ENCOUNTER → 2024-12-12 20:30 | Outpatient (BNV) | payer MEDICAID, SELFPAY | PROVIDERS: PCP Nurse Practitioner Family; Visit Provider Student in an Organized Health Care Education/Training Program | DX: M25.531 Pain in right wrist (principal); M79.631 Pain in right forearm | CPT/HCPCS: 73090; 73110 ==

== ENCOUNTER 2024-12-19 13:40 | Outpatient (REF) | payer MEDICAID, SELFPAY | END 2024-12-19 13:41 | disposition home or self-care (01) | LOC: HO.HOSX 13:40 | PROVIDERS: Visit Provider Orthopaedic Surgery | DX: Z13.89 Encounter for screening for other disorder (principal) ==

== ENCOUNTER 2024-12-20 10:09 | Outpatient (AMB) | payer MEDICAID, SELFPAY ==
--- NOTE | 2024-12-20 11:22 | MHC.OFFVIS ---
Intake Visit Reasons: ED follow up 12/13/24 right wrist sprain/strain Intake Note: Franky 34 yr old right hand dominant who is unemployeed, presents today for his ED folow up visit for his right hand/wrist sprain. States on 12/13/24 he was shaking someone's hand when he felt a pop in his right forearm followed by flexion and ulnar deviation of his right hand with constant extension of his right fingers. He was seen at [facility] where xrays were taken and he was placed in a splint. Currently states he is more comfortable when he has his hand ball up to a fist and no movement of his wrist. Denies numbness, tingling or locking of any finger. Hx of wrist inkury back in high school. Allergies No Known Allergies (No Known Allergies*) Allergy (Verified 12/20/24 11:25) [facility] ED follow up 12/13/24 right wrist sprain/strain: Details: Franky is a 34 year old right hand dominant man who presents for a right hand & wrist injury. He says he felt a painful pop in his right forearm while shaking hands, DOI: 12/13/24. He says he developed flexion & ulnar deviation of his hand & wrist immediately afterwards. He was seen & splinted in the ED. He complains of pain in his hand & wrist, primarily when trying to extend his fingers or with wrist ROM. He demonstrates pain along the dorsal radial aspect of his wrist, into his forearm, which he made worse by using this hand to push himself up off of a couch, with his wrist in hyperextension. He says he is most comfortable when his fingers are closed in a fist and he holds his wrist still. He denies any numbness or tingling. 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 [facility] Medical History Hyponatremia Hypothyroidism Opiate use Psychosis Impulse disorder TBI (traumatic brain injury) Social History (Updated 12/20/24 @ 11:26 by BASIM Valdez) Household Members: None Housing: Condominium Housing Other:: care one addiction Do you presently have visiting nurse or other home services: No Comment: seizure precautions Patient Tobacco Use Status: Current everyday Tobacco user Tobacco use type: Cigarette Cigarette Packs Per Day: 1 Cigarettes Per Day: 20.0 e-Cigarette/Vaping Use: Currently Using Second Hand Smoke Exposure: No Substance Use Type: Marijuana service: No Current occupational status: unemployed 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 Sexual orientation: Straight/Heterosexual Review of Systems Const All systems reviewed & are unremarkable except as noted in HPI and below Physical Exam Const General: cooperative, healthy appearing and no acute distress Orientation/consciousness: patient oriented x3 HEENT Head: Yes normocephalic and Yes atraumatic Eyes EOM: EOMs intact bilaterally Resp Effort & Inspection: normal respiratory effort and able to speak in complete sentences Cardio Jugular venous distension: no JVD Skin General skin exam: turgor normal Rashes: no rashes Neuro General: patient oriented x3 Extrem Other: Evaluation of Right Upper Extremity: The patient is alert, oriented, and in no acute distress Neuro: Median, Ulnar, Radial nerves motor and sensory intact and sensation is normal to the tips of all digits Vascular: Cap refill brisk ROM: He can make a fist and has good active extending of all digits. However his middle, ring, & small fingers appear somewhat ulnar deviated at MCP joint, and has an ~10 degree extensor lag at these joints He has active wrist flexion to ~45 degrees, active extension to ~5 degrees Skin: No lacerations or abrasions. General: No Ecchymosis. No Erythema or evidence of infection. Tender over the dorsal radial aspect of the radiocarpal joint Most tender radioscaphoid joint, both dorsal & radial More tender along joint line as opposed to the snuffbox No scaphoid tubercle tenderness Radiographs: 3 views of the right wrist were taken and viewed by me today in clinic. They show no fractures or dislocations. He has significant narrowing of the radioscaphoid joint, with subchondral sclerosis and some osteophyte formation on the scaphoid. The radial stylod comes to a sharp point, no scapholunate widening visible on pencil chief of safety and protection view Regarding the left side, a pencil chief of safety and protection view of the LEFT wrist shows some narrowing of the radioscpahoid joint with the radial styloid coming to a point, indicative of arthritic changes. Psych Appearance: grossly normal Affect: normal affect Attitude: cooperative Assessment & Plan Assessment & Plan (1) Right wrist pain: Code(s): M25.531 - Pain in right wrist Category: Medical (2) Arthritis of right wrist: Code(s): M19.031 - Primary osteoarthritis, right wrist Category: Medical Plan Assessment & Plan: 1. Right wrist pain DOI: 12/13/24 2. Right wrist arthritis I educated him about these conditions I discussed operative and non-operative treatment options I recommend splinting & activity modification, and he is in agreement He was fitted for a velcro wrist splint, to be worn like a cast for the next 4 weeks I referred him to Rheumatology to be assessed for possible Rheumatologic conditions which may have caused his bilateral wrist OA , in someone so young, and ulnar deviation of the MCP joints of the right hand.. I discussed activity modifications, he is to lift nothing heavier than a cellphone for the next 4 weeks. He will perform gentle ROM exercises at home while in his splint I also recommend icing & elevating his wrist when possible He will follow up in 4 weeks, with X-rays, 3V R wrist + scaphoid, OOP Scribed for Irina Hsieh MD by Ej Sánchez, medical office representative, on 12/20/24 at 11:35 AM, EST. Orders: Orders XR wrist RT w scaphoid Today M25.531 - Pain in right wrist Referrals Rheumatology Referral M19.031 - Primary osteoarthritis, right wrist, M25.531 - Pain in right wrist Coding Level of Care Code New Pt Level 4 (02329) Diagnoses Right wrist pain M25.531 Arthritis of right wrist M19.031
--- OUTSIDE RECORDS SUMMARY | 2024-12-20 11:50 | XMS_ITS | Clinical Summary ---
Author Organization [employer] Address [address] [facility] [address] [facility] [address] [place] [address] Care Team Providers Care Diesel Engine Engineer Name Role Phone Unavailable Primary Care Provider Unavailabl e Encounters Date Type Department Care Team Description 11/03/2024 Patient Outreach [facility] [address] [place] [address] Zach Carmona MD Care Coordination (Cm/chw outreach) [...] to complete this topic Insurance [facility] C3
== END 2024-12-20 11:57 | disposition home or self-care (01) ==
LOC: HO.HOS 10:09
PROVIDERS: PCP Nurse Practitioner Family; Visit Provider Orthopaedic Surgery
DX: M25.531 Pain in right wrist (principal); M19.031 Primary osteoarthritis, right wrist
CPT/HCPCS: 99203

== ENCOUNTER → 2024-12-20 10:12 | Outpatient (BNV) | payer MEDICAID, SELFPAY | PROVIDERS: Visit Provider Radiology Diagnostic Radiology | DX: M19.031 Primary osteoarthritis, right wrist (principal) | CPT/HCPCS: 73110 ==

== ENCOUNTER 2024-12-20 12:41 | Outpatient (REF) | payer MEDICAID, SELFPAY ==
--- NOTE | ~2024-12-20 | XR_ITS ---
EXAMINATION: XR WRIST NAVICULAR RIGHT HISTORY: M25.531 - Pain in right wrist COMPARISON: Comparison is made with the prior examination dated 12/12/2024. FINDINGS: Four views of the right wrist including a scaphoid view are submitted. Osseous mineralization is normal. There is no fracture or dislocation. Again seen is moderate to severe degenerative change of the radiocarpal joint with joint space narrowing. There is dorsal tilt of the lunate, compatible with DISI. The soft tissues are unremarkable. XR/XR wrist RT w scaphoid IMPRESSION: Findings compatible with EDC. Moderate to severe degenerative change of the radiocarpal joint. Electronically signed by: Carlito Mars MD 12/20/2024 10:23 AM TYRELL
--- OUTSIDE RECORDS SUMMARY | 2024-12-21 15:15 | XMS_ITS | Clinical Summary ---
Author Organization [employer] Address [address] [facility] [address] [place] [address] Care Team Providers Care Commercial Cleaner Name Role Phone Unavailable Primary Care Provider Unavailabl e Encounters Date Type Department Care Team Description 11/03/2024 Patient Outreach [facility] [address] [place] [address] Zach Carmona MD Care Coordination (Cm/chw outreach) [...] patient's age to complete this topic Insurance [facility] C3
== END 2024-12-20 12:42 | disposition home or self-care (01) ==
LOC: HO.HOSX 12:41
PROVIDERS: Visit Provider Orthopaedic Surgery
DX: M19.031 Primary osteoarthritis, right wrist (principal); M25.531 Pain in right wrist
CPT/HCPCS: 73110; 99202

== ENCOUNTER 2025-01-16 08:36 | Outpatient (REF) | payer MEDICAID, SELFPAY | END 2025-01-16 08:37 | disposition home or self-care (01) | LOC: HO.HKASLDS 08:36 | PROVIDERS: Visit Provider Student in an Organized Health Care Education/Training Program | DX: M19.131 Post-traumatic osteoarthritis, right wrist (principal); R76.0 Raised antibody titer | CPT/HCPCS: 99202 ==

== ENCOUNTER 2025-01-16 08:36 | Outpatient (AMB) | payer MEDICAID, SELFPAY ==
[2025-01-16 08:45] VITALS: BP 138/78; PULSE 76; O2SAT 97; BMI 27.9
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
--- OUTSIDE RECORDS SUMMARY | 2025-01-16 09:03 | XMS_ITS | Clinical Summary ---
Author Organization [employer] Address [address] [facility] [address] [place] [address] Care Team Providers Care Puppy Walker Name Role Phone Unavailable Primary Care Provider Unavailabl e Encounters Date Type Department Care Team Description 11/03/2024 Patient Outreach [facility] [address] [place] [address] Zach Carmona MD Care Coordination (Cm/chw outreach) [...] of 3 - 19+ 3-dose series) 10/28/2007 Pneumococcal Vaccine: Pediatrics (0 to 5 Years) and At-Risk Patients (6 to 49) Years (1 of 2 - PCV) 10/28/2007 COVID-19 Vaccine (1 - 2024-2 6 season) 2024 Influenza Vaccine (#1) 2024 Zoster [...] patient's age to complete this topic Insurance [facility] C3
== END 2025-01-16 09:59 | disposition home or self-care (01) ==
LOC: HO.RHES 08:37
PROVIDERS: PCP Nurse Practitioner Family; Visit Provider Student in an Organized Health Care Education/Training Program
DX: M19.031 Primary osteoarthritis, right wrist (principal); M25.531 Pain in right wrist; M19.131 Post-traumatic osteoarthritis, right wrist
CPT/HCPCS: 99204

== ENCOUNTER 2025-01-16 10:51 | Outpatient (REF) | payer MEDICAID, SELFPAY ==
[2025-01-16 12:25] LABS: Parathyroid Hormone Intact 36.9 pg/mL (8.7-77.1)
[2025-01-16 12:34] LABS: Calcium 9.4 mg/dL (8.4-10.2); Iron 95 mcg/dL (45-160); Percent Iron Saturation 33 % (15-50); Total Iron Binding Capacity 290 mcg/dL (228-428); Unsaturated Iron Binding 195 ug/dL; Uric Acid 2.7 mg/dL (3.4-7.0)
[2025-01-17 14:53] LABS: Anti Nuclear Antibody Screen NEGATIVE (NEGATIVE)
[2025-01-19 20:54] LABS: IGF-1 (Somatomedin C) 189 ng/mL (53-331); IGF-1 Z Score (Male) 0.6 SD (-2.0 - +2.0)
== END 2025-01-16 10:52 | disposition home or self-care (01) ==
LOC: HO.LAB 10:51
PROVIDERS: PCP Nurse Practitioner Family; Visit Provider Student in an Organized Health Care Education/Training Program
DX: M19.031 Primary osteoarthritis, right wrist (principal); R76.0 Raised antibody titer
CPT/HCPCS: 82310; 82525; 83540; 83970; 84305; 84550; 85652; 86038; 86140; 86200; 86431

== ENCOUNTER 2025-01-18 10:44 | Outpatient (AMB) | payer MEDICAID, SELFPAY ==
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
[2025-01-18 11:44] VITALS: BMI 27.9
--- OUTSIDE RECORDS SUMMARY | 2025-01-18 12:24 | XMS_ITS | Clinical Summary ---
Author Organization [employer] Address [address] [facility] [address] [place] [address] Care Team Providers Care Check Writing Machine Operator Name Role Phone Unavailable Primary Care Provider Unavailabl e Encounters Date Type Department Care Team Description 11/03/2024 Patient Outreach [facility] [address] [place] [address] Zach Carmona MD Care Coordination (Cm/chw outreach) [...] patient's age to complete this topic Insurance [facility] C3
== END 2025-01-18 12:30 | disposition home or self-care (01) ==
LOC: HO.HOS 10:45
PROVIDERS: Visit Provider Orthopaedic Surgery
DX: M25.531 Pain in right wrist (principal); M19.031 Primary osteoarthritis, right wrist
CPT/HCPCS: 20605; 77002; 99213

== ENCOUNTER → 2025-01-18 10:56 | Outpatient (BNV) | payer MEDICAID, SELFPAY | PROVIDERS: Visit Provider Radiology Diagnostic Ultrasound | DX: M19.031 Primary osteoarthritis, right wrist (principal) | CPT/HCPCS: 73110; 77002 ==

== ENCOUNTER 2025-01-18 12:02 | Outpatient (REF) | payer MEDICAID, SELFPAY ==
--- NOTE | ~2025-01-18 | FL_ITS ---
EXAMINATION: Fluoroscopy right wrist CLINICAL INFORMATION: Needle placement COMPARISON: None TECHNIQUE: 1 fluoroscopic image FINDINGS: Fluoroscopy provided for procedure. Needle projected in the region of the scaphoid. Fluoroscopic time: 10 seconds DAP: [id number] arellano centimeter square FL/FL guided needle placement IMPRESSION: Fluoroscopy provided for procedure. See procedure report for further information. Electronically signed by: Yazan Bhagat MD 01/19/2025 04:02 PM T[facility]
--- NOTE | ~2025-01-18 | XR_ITS ---
EXAMINATION: XR WRIST, RIGHT CLINICAL INFORMATION: M25.531 - Pain in right wrist COMPARISON: X-ray 12/20/2024 TECHNIQUE: PA, lateral, and oblique views of the right wrist. FINDINGS: No acute fracture, dislocation or suspicious bony lesion is identified Redemonstrated moderate to severe radiocarpal arthritis. No Erosions. Redemonstrated is dorsal tilt of the lunate, suggestive of DISI No significant soft tissue swelling. No radiopaque foreign body. XR/XR wrist RT w scaphoid IMPRESSION: No radiographic evidence of acute osseous findings. IMPRESSION: Moderate-severe radiocarpal degenerative arthritis. Electronically signed by: Yazan Bhagat MD 01/18/2025 04:23 PM T[facility]
== END 2025-01-18 12:03 | disposition home or self-care (01) ==
LOC: HO.HOSX 12:02
PROVIDERS: Visit Provider Orthopaedic Surgery
DX: M25.531 Pain in right wrist (principal)
CPT/HCPCS: 20605; 73110; 77002; 99212; J0665; J1100

== ENCOUNTER 2025-01-30 10:34 | Outpatient (REF) | payer MEDICAID, SELFPAY ==
--- NOTE | ~2025-01-30 | XR_ITS ---
EXAM: TECHNIQUE: AP and lateral views of the cervical, thoracic, and lumbar spine. There was stitching of the AP views. INDICATION: Scoliosis PRIOR: None TECHNIQUE: AP and view of the cervical, thoracic, and lumbar spine. There was stitching of the AP views. FINDINGS: Coronal balance: Atrial. The geometric center of C7 projected 1.5 cm right of the center of S1. Curvature: Cervical thoracic junction: 12 degrees dextroscoliosis Thoracic: 8 degrees convex left Thoracolumbar junction: 4 degrees convex right Lumbar: 5 degrees convex left [place] Risser Stage: 5: Completely ossified iliac crest apophysis and closed physis. XR/XR scoliosis 1V IMPRESSION: Mild scoliosis Electronically signed by: Jatinder Lucio MD 01/30/2025 11:33 AM [facility]OLF
--- NOTE | ~2025-01-30 | XR_ITS ---
EXAMINATION: XR THORACIC SPINE CLINICAL INFORMATION: POST TRAUMATIC BACK PAIN, SCOLIOSIS COMPARISON: None available. TECHNIQUE: 3 views of the thoracic spine were obtained. FINDINGS: There is mild to moderate disc space narrowing in the midthoracic spine with small anterior osteophytes. There is no listhesis. No fractures identified. XR/XR thoracic spine 2V IMPRESSION: Mild to moderate degenerative disc disease. Electronically signed by: Jatinder Lucio MD 01/30/2025 11:34 AM T[facility]
--- NOTE | ~2025-01-30 | XR_ITS ---
EXAMINATION: XR LUMBOSACRAL SPINE CLINICAL INFORMATION: POST TRAUMATIC BACK PAIN,SCOLIOSIS COMPARISON: None available. TECHNIQUE: Three views of the lumbosacral spine. FINDINGS: There are 5 nonrib-bearing lumbar segment. There is minimal convex left curvature. There is moderate loss of height from the superior endplate of L2 with an anterior osteophyte at superior L2 distending the cephalad direction There is a small Schmorl's node evolving anterior inferior L2. L1-2: There is mild to moderate loss of disc height. L2-3: There is mild loss disc height and subtle retrolisthesis. L3-4: There is subtle retrolisthesis. Disc spaces preserved. L4-5: Unremarkable L5-S1: Unremarkable XR/XR lumbar spine 2-3V IMPRESSION: Age-indeterminate moderate superior endplate compression fracture of L2, probably chronic. Degenerative disc disease at L1-2 and L2-3. Electronically signed by: Jatinder Lucio MD 01/30/2025 11:36 AM EST
== END 2025-01-30 10:35 | disposition home or self-care (01) ==
LOC: HO.XRAY 10:34
PROVIDERS: PCP Nurse Practitioner Family; Visit Provider Nurse Practitioner Family
DX: M41.87 Other forms of scoliosis, lumbosacral region (principal)
CPT/HCPCS: 72070; 72081; 72100

== ENCOUNTER → 2025-01-30 10:43 | Outpatient (BNV) | payer MEDICAID, SELFPAY | PROVIDERS: PCP Nurse Practitioner Family; Visit Provider Radiology Diagnostic Radiology | DX: M41.80 Other forms of scoliosis, site unspecified (principal); M51.360 Other intervertebral disc degeneration, lumbar region with discogenic back pain only; M51.34 Other intervertebral disc degeneration, thoracic region | CPT/HCPCS: 72070; 72081; 72100 ==

== ENCOUNTER 2025-02-06 08:30 | Outpatient (AMB) | payer MEDICAID, SELFPAY ==
[2025-02-06 08:32] VITALS: BP 122/72; PULSE 77; O2SAT 98; BMI 26.2
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
--- OUTSIDE RECORDS SUMMARY | 2025-02-06 08:45 | XMS_ITS | Clinical Summary ---
Author Organization [employer] Address [address] [place] [address] Care Team Providers Care Field Agronomist Name Role Phone Unavailable Primary Care Provider Unavailabl e Social History Tobacco Use Types Packs/Day Years [...] of 2 - PCV) 10/28/2007 COVID-19 Vaccine ( - 2024-2 6 season) 2024 Influenza Vaccine (#1) 2024 Zoster Vaccines (1 of 2) 2038 RSV Patients and Patients Aged 60 years or older (1 - 1-dose 75+ series) 10/28/2063 Meningococcal Vaccine Aged Out 07/23/2006 No esbastien april eligible based on patient's age to [...] patient's age to complete this topic Insurance [facility] C3
== END 2025-02-06 08:59 | disposition home or self-care (01) ==
LOC: HO.RHES 08:30
PROVIDERS: PCP Nurse Practitioner Family; Visit Provider Student in an Organized Health Care Education/Training Program
DX: M25.531 Pain in right wrist (principal); M19.131 Post-traumatic osteoarthritis, right wrist; M54.50 Low back pain, unspecified; G89.29 Other chronic pain
CPT/HCPCS: 99214

== ENCOUNTER → 2025-02-06 08:30 | Outpatient (BNVA) | payer MEDICAID, SELFPAY | PROVIDERS: PCP Nurse Practitioner Family; Visit Provider Student in an Organized Health Care Education/Training Program | DX: M25.531 Pain in right wrist (principal); M19.131 Post-traumatic osteoarthritis, right wrist; M54.50 Low back pain, unspecified; G89.29 Other chronic pain | CPT/HCPCS: 99212 ==